=== PATIENT | male | born 1965 | race Hispanic/Latino ===

== ENCOUNTER 2022-07-15 13:48 | Inpatient (IN) | payer OTHER ==
--- NOTE | 2022-07-15 14:35 | XRay Report ---
CHEST 1 VIEW 07/15/2022 2:18 PM INDICATION / CLINICAL INFORMATION: Chest pain. COMPARISON: None available. FINDINGS: SUPPORT DEVICES: There is a dual chamber left subclavian transvenous pacemaker with the tips of the p acing leads overlying the right atrial appendage and right ventricle. There is a left PICC with the t ip not well seen but in the region of the proximal to mid SVC. HEART / MEDIASTINUM: The heart size and pulmonary vasculature are normal. There is a coronary artery stent in the LAD. The aorta is normal in caliber. LUNGS / PLEURA: No significant pulmonary or pleural abnormality. No pneumothorax. ADDITIONAL FINDINGS: No significant additional findings. IMPRESSION: No acute findings. Signer Name: Phill Agudelo MD Signed: 07/15/2022 2:30 PM Workstation Name: [email or web address]
[2022-07-15] MEDS ORDERED: ONDANSETRON 4 MG/2 ML INJ IV ONE ×2 (16:00→22:43)
[2022-07-15] MEDS ORDERED: HYDROmorphone 1 MG/1 ML INJ IV ONE ×2 (16:00→18:06)
[2022-07-15 16:30] LABS: Hemoglobin 9.4 gm/dl (11.8-15.2); Mean Corpuscular HGB Conc 33 % (32-34); Mean Corpuscular Volume 81 fl (84-94); Platelet Count 178 K/mm3 (140-440); Red Blood Count 3.58 M/mm3 (3.65-5.03)
[2022-07-15 16:38] LABS: INR 0.88 (0.87-1.13)
[2022-07-15 16:39] LABS: Partial Thromboplastin Time 24.1 Sec. (24.2-36.6)
[2022-07-15 16:43] LABS: Red Cell Distribution Width 23.5 % (13.2-15.2)
[2022-07-15] MEDS ORDERED: diphenhydrAMINE 50 MG/ML VIAL IV ONE ×2 (16:55→18:06)
[2022-07-15] MEDS ORDERED: methylPREDNISolone Sod Succinate 125 MG/2 ML INJ IV ONE (16:55)
[2022-07-15 16:57] LABS: Alanine Aminotransferase 14 units/L (7-56); Albumin 3.9 g/dL (3.9-5); BUN/Creatinine Ratio 12; Blood Urea Nitrogen 11 mg/dL (9-20); Calcium 9.1 mg/dL (8.4-10.2); Hemolysis Index 12
--- NOTE | 2022-07-15 17:36 | Emergency Department Report ---
ED Chest Pain HPI - General Chief Complaint: Chest Pain Stated Complaint: CHEST PAIN Time Seen by Provider: 07/15/22 15:29 Source: patient Mode of arrival: Ambulatory Limitations: No Limitations - History of Present Illness Initial Comments: 57-year-old male with a past medical history of hypertension, ascending aortic aneurysm, mechanical valve replacement, defibrillator, pacemaker, 3 cardiac stents, home oxygen and history of PE/DVT with IVC filter placement presents to the hospital complaining of chest pain and defibrillator discharge at 1:36pm. Symptoms started 3 hours prior to arrival with constant ripping chest pain radiating to his back with associated shortness of breath, nausea, 5 episodes of vomiting. Patient takes multiple medications including warfarin, Plavix, and Lovenox when his INR is subtherapeutic (patient performs [id number] INR testing at home). Patient has a left arm PICC line that was placed at the [facility] 3 weeks ago due to his difficult peripheral access. Patient moved to the [facility] from [place] 4 weeks ago and is in the process of obtaining primary care doctor and specialist doctor management in [place]. 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 Severity scale (0 -10): 9 - Related Data Allergies Allergy/AdvReac Type Severity Reaction Status Date / Time Iodinated Contrast Media Allergy Anaphylaxis Verified 07/15/22 14:02 Heart Score - HEART Score History: Slightly suspicious EKG: Non-specific Age: 45-65 Risk factors: > 3 risk factors or hx of atherosclerotic disease Troponin: < normal limit HEART Score: 4 - EKG Read Time Time EKG Completed: 14:05 EKG Read Time: 14:11 ED Review of Systems ROS: Stated complaint: CHEST PAIN Other details as noted in HPI Comment: All other systems reviewed and negative ED Past Medical Hx - Past Medical History Previous Medical History?: Yes Hx Hypertension: Yes Additional medical history: Ascending aorta aneurysm,mechanical valve replacement ,defibrilator,pacemaker,3 cardiac stents ,home oxygen ,dvt ,pe - Surgical History Additional Surgical History: IVC filter ED Physical Exam - General Limitations: No Limitations - Other Other exam information: General: No acute distress Head: Atraumatic Eyes: normal appearance ENT: Moist mucous membranes Neck: Normal appearance, no midline tenderness Chest: Clear to auscultation bilaterally, sternotomy scar noted to anterior CV: Regular rate and rhythm Abdomen: Soft, normal bowel sounds, nontender, nondistended, no rebound or guarding Back: Normal inspection Extremity: Normal inspection, full range of motion, no calf tenderness or leg edema, left arm PICC line Neuro: Alert O x 3, no facial asymmetry, speech clear, no gross motor sensory deficit Psych: Appropriate behavior Skin: No rash ED Course Vital Signs 07/15/22 07/15/22 07/15/22 13:57 15:37 15:45 Temperature 98.1 F Pulse Rate 110 H 97 H 91 H Respiratory 18 17 28 H Rate Blood Pressure 127/79 Blood Pressure 128/76 [Left] O2 Sat by Pulse 99 98 93 Oximetry 07/15/22 07/15/22 07/15/22 16:00 16:15 16:30 Temperature Pulse Rate 92 H 91 H 89 Respiratory 14 17 19 Rate Blood Pressure 127/79 108/75 108/75 Blood Pressure [Left] O2 Sat by Pulse 98 97 98 Oximetry 07/15/22 07/15/22 07/15/22 16:46 17:00 17:16 Temperature Pulse Rate 88 87 87 Respiratory 17 17 24 Rate Blood Pressure 108/75 114/53 114/53 Blood Pressure [Left] O2 Sat by Pulse 97 96 Oximetry 07/15/22 07/15/22 07/15/22 17:34 17:47 17:50 Temperature Pulse Rate 115 H 117 H Respiratory 17 13 Rate Blood Pressure 114/53 Blood Pressure [Left] O2 Sat by Pulse 97 98 97 Oximetry 07/15/22 07/15/22 07/15/22 18:00 18:16 18:30 Temperature Pulse Rate 90 88 Respiratory 22 13 Rate Blood Pressure 114/53 Blood Pressure [Left] O2 Sat by Pulse 97 95 96 Oximetry 07/15/22 07/15/22 07/15/22 18:46 19:00 19:16 Temperature Pulse Rate 85 87 89 Respiratory 15 13 15 Rate Blood Pressure 114/53 128/64 128/64 Blood Pressure [Left] O2 Sat by Pulse 97 94 95 Oximetry 07/15/22 07/15/22 07/15/22 19:30 19:46 20:02 Temperature Pulse Rate 86 88 116 H Respiratory 12 13 27 H Rate Blood Pressure 128/64 128/64 Blood Pressure [Left] O2 Sat by Pulse 97 95 97 Oximetry 07/15/22 07/15/22 07/15/22 20:16 20:30 20:46 Temperature Pulse Rate 93 H 106 H 100 H Respiratory 25 H 14 22 Rate Blood Pressure 128/64 Blood Pressure [Left] O2 Sat by Pulse 95 97 97 Oximetry 07/15/22 07/15/22 07/15/22 21:00 21:16 21:30 Temperature Pulse Rate 96 H 100 H 95 H Respiratory 17 18 19 Rate Blood Pressure 128/64 128/64 128/64 Blood Pressure [Left] O2 Sat by Pulse 96 96 97 Oximetry 07/15/22 07/15/22 07/15/22 21:46 22:08 22:16 Temperature Pulse Rate 96 H 113 H 94 H Respiratory 19 27 H 17 Rate Blood Pressure 128/64 Blood Pressure [Left] O2 Sat by Pulse 97 98 98 Oximetry 07/15/22 07/15/22 07/15/22 22:30 22:46 23:00 Temperature Pulse Rate 91 H 91 H 87 Respiratory 25 H 13 16 Rate Blood Pressure 123/59 123/59 Blood Pressure [Left] O2 Sat by Pulse 96 97 98 Oximetry 07/15/22 07/15/22 23:16 23:30 Temperature Pulse Rate 83 84 Respiratory 22 20 Rate Blood Pressure 123/59 123/59 Blood Pressure [Left] O2 Sat by Pulse 96 96 Oximetry ED Medical Decision Making - Lab Data Result diagrams: 07/15/22 15:49 07/15/22 15:49 Lab Results 07/15/22 07/15/22 07/15/22 Range/Units 15:49 15:49 15:49 WBC 8.5 (4.5-11.0) K/mm3 RBC 3.58 L (3.65-5.03) M/mm3 Hgb 9.4 L (11.8-15.2) gm/dl Hct 29.0 L (35.5-45.6) % MCV 81 L (84-94) fl MCH 26 L (28-32) pg MCHC 33 (32-34) % RDW 23.5 H (13.2-15.2) % Plt Count 178 (140-440) K/mm3 Add Manual Diff Complete Total Counted 100 Seg Neuts % (Manual) 90.0 H (40.0-70.0) % Band Neutrophils % 1.0 % Lymphocytes % (Manual) 3.0 L (13.4-35.0) % Reactive Lymphs % (Man) 0 % Monocytes % (Manual) 4.0 (0.0-7.3) % Eosinophils % (Manual) 0 (0.0-4.3) % Basophils % (Manual) 0 (0.0-1.8) % Metamyelocytes % 1.0 % Myelocytes % 1.0 % Promyelocytes % 0 % Blast Cells % 0 % Nucleated RBC % Not Reportable Seg Neutrophils # Man 7.7 (1.8-7.7) K/mm3 Band Neutrophils # 0.1 K/mm3 Lymphocytes # (Manual) 0.3 L (1.2-5.4) K/mm3 Abs React Lymphs (Man) 0.0 K/mm3 Monocytes # (Manual) 0.3 (0.0-0.8) K/mm3 Eosinophils # (Manual) 0.0 (0.0-0.4) K/mm3 Basophils # (Manual) 0.0 (0.0-0.1) K/mm3 Metamyelocytes # 0.1 K/mm3 Myelocytes # 0.1 K/mm3 Promyelocytes # 0.0 K/mm3 Blast Cells # 0.0 K/mm3 WBC Morphology Not Reportable Hypersegmented Neuts Not Reportable Hyposegmented Neuts Not Reportable Hypogranular Neuts Not Reportable Smudge Cells Not Reportable Toxic Granulation Not Reportable Toxic Vacuolation Not Reportable Dohle Bodies Not Reportable Pelger-Huet Anomaly Not Reportable Bubba Rods Not Reportable Platelet Estimate Consistent w auto Clumped Platelets Not Reportable Plt Clumps, EDTA Not Reportable Large Platelets Not Reportable Giant Platelets Not Reportable Platelet Satelliting Not Reportable Plt Morphology Comment Not Reportable RBC Morphology Not Reportable Dimorphic RBCs Not Reportable Polychromasia Few Hypochromasia Not Reportable Poikilocytosis Not Reportable Anisocytosis 2+ Microcytosis Not Reportable Macrocytosis Not Reportable Spherocytes Not Reportable Pappenheimer Bodies Not Reportable Sickle Cells Not Reportable Target Cells Not Reportable Tear Drop Cells 1+ Ovalocytes Few Helmet Cells Not Reportable Lice[place]out[place] Bodies Not Reportable Dorset Rings Not Reportable Ulysses Cells Not Reportable Bite Cells Not Reportable Crenated Cell Not Reportable Elliptocytes Not Reportable Acanthocytes (Spur) Not Reportable Rouleaux Not Reportable Hemoglobin C Crystals Not Reportable Schistocytes Not Reportable Malaria parasites Not Reportable Indra Bodies Not Reportable Hem Pathologist Commnt No PT 12.9 (12.2-14.9) Sec. INR 0.88 (0.87-1.13) APTT 24.1 L (24.2-36.6) Sec. Sodium 141 (137-145) mmol/L Potassium 4.1 (3.6-5.0) mmol/L Chloride 105.0 (98-107) mmol/L Carbon Dioxide 25 (22-30) mmol/L Anion Gap 15 mmol/L BUN 11 (9-20) mg/dL Creatinine 0.9 (0.8-1.3) mg/dL Estimated GFR > 60 ml/min BUN/Creatinine Ratio 12 % Glucose 159 H (75-100) mg/dL Calcium 9.1 (8.4-10.2) mg/dL Total Bilirubin 0.30 (0.1-1.2) mg/dL AST 9 (5-40) units/L ALT 14 (7-56) units/L Alkaline Phosphatase 83 (35-129) units/L Troponin T < 0.010 (0.00-0.029) ng/mL Total Protein 5.7 L (6.3-8.2) g/dL Albumin 3.9 (3.9-5) g/dL Albumin/Globulin Ratio 2.2 % 07/15/22 Range/Units 19:24 WBC (4.5-11.0) K/mm3 RBC (3.65-5.03) M/mm3 Hgb (11.8-15.2) gm/dl Hct (35.5-45.6) % MCV (84-94) fl MCH (28-32) pg MCHC (32-34) % RDW (13.2-15.2) % Plt Count (140-440) K/mm3 Add Manual Diff Total Counted Seg Neuts % (Manual) (40.0-70.0) % Band Neutrophils % % Lymphocytes % (Manual) (13.4-35.0) % Reactive Lymphs % (Man) % Monocytes % (Manual) (0.0-7.3) % Eosinophils % (Manual) (0.0-4.3) % Basophils % (Manual) (0.0-1.8) % Metamyelocytes % % Myelocytes % % Promyelocytes % % Blast Cells % % Nucleated RBC % Seg Neutrophils # Man (1.8-7.7) K/mm3 Band Neutrophils # K/mm3 Lymphocytes # (Manual) (1.2-5.4) K/mm3 Abs React Lymphs (Man) K/mm3 Monocytes # (Manual) (0.0-0.8) K/mm3 Eosinophils # (Manual) (0.0-0.4) K/mm3 Basophils # (Manual) (0.0-0.1) K/mm3 Metamyelocytes # K/mm3 Myelocytes # K/mm3 Promyelocytes # K/mm3 Blast Cells # K/mm3 WBC Morphology Hypersegmented Neuts Hyposegmented Neuts Hypogranular Neuts Smudge Cells Toxic Granulation Toxic Vacuolation Dohle Bodies Pelger-Huet Anomaly Bubba Rods Platelet Estimate Clumped Platelets Plt Clumps, EDTA Large Platelets Giant Platelets Platelet Satelliting Plt Morphology Comment RBC Morphology Dimorphic RBCs Polychromasia Hypochromasia Poikilocytosis Anisocytosis Microcytosis Macrocytosis Spherocytes Pappenheimer Bodies Sickle Cells Target Cells Tear Drop Cells Ovalocytes Helmet Cells Licea-Stoutland Bodies Dorset Rings Ulysses Cells Bite Cells Crenated Cell Elliptocytes Acanthocytes (Spur) Rouleaux Hemoglobin C Crystals Schistocytes Malaria parasites Indra Bodies Hem Pathologist Commnt PT (12.2-14.9) Sec. INR (0.87-1.13) APTT (24.2-36.6) Sec. Sodium (137-145) mmol/L Potassium (3.6-5.0) mmol/L Chloride (98-107) mmol/L Carbon Dioxide (22-30) mmol/L Anion Gap mmol/L BUN (9-20) mg/dL Creatinine (0.8-1.3) mg/dL Estimated GFR ml/min BUN/Creatinine Ratio % Glucose (75-100) mg/dL Calcium (8.4-10.2) mg/dL Total Bilirubin (0.1-1.2) mg/dL AST (5-40) units/L ALT (7-56) units/L Alkaline Phosphatase (35-129) units/L Troponin T < 0.010 (0.00-0.029) ng/mL Total Protein (6.3-8.2) g/dL Albumin (3.9-5) g/dL Albumin/Globulin Ratio % - EKG Data -: EKG Interpreted by Sc EKG shows normal: sinus rhythm, ST-T waves (No STEMI) Rate: tachycardia (109) - Radiology Data Radiology results: report reviewed CHEST 1 VIEW 07/15/2022 2:18 PM INDICATION / CLINICAL INFORMATION: Chest pain. COMPARISON: None available. FINDINGS: SUPPORT DEVICES: There is a dual chamber left subclavian transvenous pacemaker with the tips of the pacing leads overlying the right atrial appendage and right ventricle. There is a left PICC with the tip not well seen but in the region of the proximal to mid SVC. HEART / MEDIASTINUM: The heart size and pulmonary vasculature are normal. There is a coronary artery stent in the LAD. The aorta is normal in caliber. LUNGS / PLEURA: No significant pulmonary or pleural abnormality. No pneum othorax. ADDITIONAL FINDINGS: No significant additional findings. IMPRESSION: No acute findings. CTA CHEST WITH IV CONTRAST INDICATION: Chest pain with dyspnea. History of aneurysm. TECHNIQUE: Axial CT images were obtained through the chest after injection of 88 mL Omnipaque 350 IV contrast. 3 plane MIP reconstructions were produced. All CT scans at this location are performed using CT dose reduction for ALARA by means of automated exposure control. COMPARISON: None available. FINDINGS: PULMONARY ARTERIES: No pulmonary emboli. AORTA AND ARTERIES: No aneurysm of the aortic arch and descending thoracic aorta. There is significant motion along the ascending thoracic aorta limiting evaluation.. MEDIASTINUM: The heart is mildly enlarged. There is CABG change. No aneurysm of the aortic arch and descending thoracic aorta LUNGS: Evidence of trace bilateral interstitial edema. No pleural effusion. ADDITIONAL FINDINGS: None. UPPER ABDOMEN: No acute findings. BONES: No significant osseous abnormality. IMPRESSION: Mild cardiomegaly with mild interstitial edema. No evidence of aneurysm/dissection involving the aortic arch or descending thoracic aorta. See above comments. - Medical Decision Making 57-year-old male presents to the hospital complaining of chest pain with significant cardiac risk factors. EKG without ST elevation DE. Troponin negative x2. Patient has a CT angiogram unremarkable despite reported history of a sending aortic aneurysm measuring 5.1 cm. Patient has a subtherapeutic INR despite reported Coumadin use with [id number] INR testing at home. Patient is new to our system and new to [place] without any recent cardiac work-up available for review. Patient receiving Dilaudid intermittently for pain. Patient to be admitted to the hospital service for further evaluation. Case discussed with on-call eddy current inspector and consult ordered. Patient also reports defibrillation shock. Call placed to his defibrillator company with plan for interrogation tomorrow Critical Care Time: No Critical care attestation.: If time is entered above; I have spent that time in minutes in the direct care of this critically ill patient, excluding procedure time. ED Disposition Clinical Impression: Chest pain, Subtherapeutic international normalized ratio (INR), History of heart artery stent, History of pulmonary embolism, AICD discharge Disposition: ADMITTED INPATIENT Is pt being admited?: Yes Condition: Stable
[2022-07-15 17:46] LABS: Anisocytosis 2+; Band Neutrophils # (Manual) 0.1 K/mm3; Basophils % (Manual) 0 % (0.0-1.8); Eosinophils % (Manual) 0 % (0.0-4.3); Myelocytes # (Manual) 0.1 K/mm3; Ovalocytes Few; Tear Drop Cells 1+; Total Cells Counted 100
[2022-07-15 17:47] LABS: Platelet Estimate Consistent w Auto
[2022-07-15] MEDS ORDERED: FAMOTIDINE 20 MG/2 ML INJ IV ONE (18:06)
--- NOTE | 2022-07-15 18:17 | Cat Scan Report ---
CTA CHEST WITH IV CONTRAST INDICATION: Chest pain with dyspnea. History of aneurysm. TECHNIQUE: Axial CT images were obtained through the chest after injection of 88 mL Omnipaque 350 IV contrast. 3 plane MIP reconstructions were produced. All CT scans at this location are performed using CT dose r eduction for ALARA by means of automated exposure control. COMPARISON: None available. FINDINGS: PULMONARY ARTERIES: No pulmonary emboli. AORTA AND ARTERIES: No aneurysm of the aortic arch and descending thoracic aorta. There is significan t motion along the ascending thoracic aorta limiting evaluation.. MEDIASTINUM: The heart is mildly enlarged. There is CABG change. No aneurysm of the aortic arch and d escending thoracic aorta LUNGS: Evidence of trace bilateral interstitial edema. No pleural effusion. ADDITIONAL FINDINGS: None . UPPER ABDOMEN: No acute findings. BONES: No significant osseous abnormality. IMPRESSION: Mild cardiomegaly with mild interstitial edema. No evidence of aneurysm/dissection involving the aort ic arch or descending thoracic aorta. See above comments. Signer Name: Davon Francois MD Signed: 07/15/2022 6:12 PM Workstation Name: [id number]
[2022-07-15] MEDS ORDERED: ONDANSETRON 4 MG/2 ML INJ IV PRN (22:49)
[2022-07-15] MEDS ORDERED: ACETAMINOPHEN 325 MG TAB PO PRN ×2 (22:49)
[2022-07-15] MEDS ORDERED: MORPHINE 2 MG/1 ML INJ IV PRN (22:49)
[2022-07-15] MEDS ORDERED: MAGNESIUM HYDROXIDE (MOM) ORAL LIQD UDC PO PRN (22:49)
[2022-07-15] MEDS ORDERED: traMADol 50 MG TAB PO PRN (22:49)
[2022-07-15] MEDS ORDERED: NITROGLYCERIN 0.4 MG TAB SUBL SL PRN (22:49)
--- NOTE | 2022-07-15 22:58 | History and Physical Report ---
History of Present Illness Date of examination: 07/15/22 Date of admission: 07/15/2022 Chief complaint: Chest Pain History of present illness: 87-year-old male with known history of hypertension, ascending aortic aneurysm, mechanical valve replacement, defibrillator, coronary artery disease with cardiac stent placement in the past, DVTPE with IVC filter placement presenting to the emergency room today for chest pain. 30 sometime this afternoon. Symptoms are central started about 3 to 4 hours prior to reporting to the emergency room. Chest pain is said to be constant and radiating towards his back with associated nausea, vomiting and shortness of breath. Patient will not to [place] from [place] 1 month ago and is in the process of following up with a primary care physician. He had a PICC line placement at the OR. about 3 weeks ago because of poor IV access. Work-up in the emergency room today, labs reveals subtherapeutic INR of 0.88, hemoglobin of 9.4. Chest x-ray shows no acute findings. Chest CTA shows mild cardiomegaly with mild interstitial edema. No evidence of aneurysm/dissection involving the aortic arch or descending thoracic aorta. Patient is being admitted for chest pain evaluation. Past History Past Medical History: hypertension, other ( Ascending aorta aneurysm,mechanical valve replacement ,defibrilator,pacemaker,3 cardiac stents ,home oxygen ,dvt ,pe) Past Surgical History: Other (IVC Filter) Family history: no significant family history Medications and Allergies Allergies Allergy/AdvReac Type Severity Reaction Status Date / Time Iodinated Contrast Media Allergy Anaphylaxis Verified 07/15/22 14:02 Home Medications Medication Instructions Recorded Confirmed Last Taken Type Atorvastatin [Lipitor Tab] 80 mg PO DAILY 07/16/22 07/16/22 07/15/22 History Enoxaparin Sodium [Lovenox] 80 mg SUB-Q BID 07/16/22 07/16/22 07/15/22 History Sertraline [Zoloft] 100 mg PO QDAY 07/16/22 07/16/22 07/15/22 History Warfarin [Coumadin] 10 mg PO QDAY 07/16/22 07/16/22 07/14/22 History carvediloL [Coreg] 12.5 mg PO DAILY 07/16/22 07/16/22 07/15/22 History lamoTRIgine [LaMICtal] 100 mg PO BID 07/16/22 07/16/22 07/15/22 History levETIRAcetam [Keppra TAB] 1,000 mg PO BID 07/16/22 07/16/22 07/15/22 History traZODone [Desyrel] 100 mg PO QHS 07/16/22 07/16/22 07/14/22 History Review of Systems Constitutional: no fever, no chills Ears, nose, mouth and throat: no nasal congestion, no sore throat Cardiovascular: chest pain, no palpitations Respiratory: no cough, no shortness of breath Gastrointestinal: no abdominal pain, no nausea, no vomiting, no diarrhea Genitourinary Male: no dysuria, no hematuria, no flank pain Musculoskeletal: no neck pain, no low back pain Integumentary: no rash, no pruritis Neurological: no headaches, no confusion Psychiatric: no anxiety, no depression Endocrine: no polyphagia, no polydipsia, no polyuria Exam - Constitutional Vitals: Temp Pulse Resp BP Pulse Ox 98.1 F 86 12 128/64 97 07/15/22 13:57 07/15/22 19:30 07/15/22 19:30 07/15/22 19:30 07/15/22 19:30 General appearance: Present: no acute distress, well-nourished - EENT Eyes: Present: PERRL, EOM intact. Absent: scleral icterus ENT: hearing intact, clear oral mucosa, dentition normal - Neck Neck: Present: supple, normal ROM - Respiratory Respiratory effort: normal Respiratory: bilateral: CTA - Cardiovascular Rhythm: regular Heart Sounds: Present: S1 & S2, click. Absent: gallop, systolic murmur, diastolic murmur, rub - Extremities Extremities: no ischemia, pulses intact, pulses symmetrical, normal temperature, normal color, Full ROM Extremity abnormal: edema (Trace bilateral ankle edema) Peripheral Pulses: within normal limits - Abdominal General gastrointestinal: Present: soft, non-tender, non-distended, normal bowel sounds. Absent: mass - Integumentary Integumentary: Present: clear, warm, dry, normal turgor. Absent: rash - Musculoskeletal Musculoskeletal: strength equal bilaterally - Psychiatric Psychiatric: appropriate mood/affect, intact judgment & insight, memory intact, cooperative - Neurologic Neurologic: CNII-XII intact, no focal deficits, moves all extremities HEART Score - HEART Score History: Moderately suspicious EKG: Non-specific Age: 45-65 Risk factors: > 3 risk factors or hx of atherosclerotic disease Troponin: Troponin T < 0.010 ng/mL (0.00-0.029) 07/15/22 19:24 Troponin: < normal limit HEART Score: 5 Results - Labs CBC & Chem 7: 07/15/22 15:49 07/15/22 15:49 Labs: Abnormal lab results 07/15/22 07/15/22 07/15/22 Range/Units 15:49 15:49 15:49 RBC 3.58 L (3.65-5.03) M/mm3 Hgb 9.4 L (11.8-15.2) gm/dl Hct 29.0 L (35.5-45.6) % MCV 81 L (84-94) fl MCH 26 L (28-32) pg RDW 23.5 H (13.2-15.2) % Seg Neuts % (Manual) 90.0 H (40.0-70.0) % Lymphocytes % (Manual) 3.0 L (13.4-35.0) % Lymphocytes # (Manual) 0.3 L (1.2-5.4) K/mm3 APTT 24.1 L (24.2-36.6) Sec. Glucose 159 H (75-100) mg/dL Total Protein 5.7 L (6.3-8.2) g/dL Assessment and Plan Assessment: 1. Chest pain 2. Hypertension 3. History of coronary artery disease with stent placement 4. History of ascending aortic aneurysm 5. History of mechanical valve placement 6. History of DVTs and PE Plan: 1. Patient admitted and placed on telemetry. 2. We will check serial cardiac enzymes. 3. Patient placed on daily aspirin, sublingual nitroglycerin and IV morphine as needed for chest pain. 4. We will resume routine home medications once reconciled. 5. Consult placed to cardiology for further evaluation and recommendations. DVT prophylaxis: Patient currently on anticoagulation with Coumadin. CODE STATUS: Full code
[2022-07-15] MEDS: MORPHINE 4 MG/1 ML INJ IV PRN (23:06)
[2022-07-16] MEDS ORDERED: traZODone 100 MG TAB PO ONE (01:34)
[2022-07-16] MEDS: MORPHINE 2 MG/1 ML INJ IV PRN ×5 (03:21→21:54)
[2022-07-16] MEDS: ASPIRIN EC 325 MG TAB PO SCH (09:01)
[2022-07-16] MEDS: lamoTRIgine 100 MG TAB PO SCH ×2 (09:01→21:54)
[2022-07-16] MEDS: carvediloL 12.5 MG TAB PO SCH (09:01)
[2022-07-16] MEDS: levETIRAcetam 500 MG TAB PO SCH ×2 (09:01→21:54)
[2022-07-16] MEDS: SERTRALINE 100 MG TAB PO SCH (09:01)
[2022-07-16] MEDS: ENOXAPARIN 80 MG/0.8 ML INJ SUB-Q SCH ×2 (09:02→21:54)
--- NOTE | 2022-07-16 09:08 | Consultation ---
History of Present Illness Consult date: 07/16/22 Consult reason: chest pain History of present illness: 57-year-old gentleman with extensive past cardiac history presenting with acute onset chest pain. Patient has a history of coronary artery bypass grafting and aortic valve repair in 2012. 1 year ago he had to undergo mechanical aortic valve replacement after failure of his prior aortic valve repair. A year prior to his mechanical valve replacement, a cardiac cath was performed revealing occlusion of all bypass grafts palpation. He does have an indwelling internal cardioverter defibrillator that was inserted 2 weeks ago. He reports a left ventricular ejection fraction of 42%. 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 He is compliant with Coumadin but has been having problems maintaining his INR within therapeutic range. He has chronic anemia of unclear source. 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 He just transferred from [place] to [place] in order to be close to his family. Past History Past Medical History: anemia, CAD, DVT, heart failure, hypertension, pulmonary embolism, other ( Ascending aorta aneurysm,mechanical valve replacement ,defibrilator,pacemaker,3 cardiac stents ,home oxygen ,dvt ,pe) Past Surgical History: valve replacement, CABG, Other (IVC Filter, coronary artery bypass graft and mechanical aortic valve replacement) Family history: no significant family history Medications and Allergies Allergies Allergy/AdvReac Type Severity Reaction Status Date / Time Iodinated Contrast Media Allergy Anaphylaxis Verified 07/15/22 14:02 Home Medications Medication Instructions Recorded Confirmed Last Taken Type Atorvastatin [Lipitor Tab] 80 mg PO DAILY 07/16/22 07/16/22 07/15/22 History Enoxaparin Sodium [Lovenox] 80 mg SUB-Q BID 07/16/22 07/16/22 07/15/22 History Sertraline [Zoloft] 100 mg PO QDAY 07/16/22 07/16/22 07/15/22 History Warfarin [Coumadin] 10 mg PO QDAY 07/16/22 07/16/22 07/14/22 History carvediloL [Coreg] 12.5 mg PO DAILY 07/16/22 07/16/22 07/15/22 History lamoTRIgine [LaMICtal] 100 mg PO BID 07/16/22 07/16/22 07/15/22 History levETIRAcetam [Keppra TAB] 1,000 mg PO BID 07/16/22 07/16/22 07/15/22 History traZODone [Desyrel] 100 mg PO QHS 07/16/22 07/16/22 07/14/22 History Active Meds: Active Medications Acetaminophen (Acetaminophen 325 Mg Tab) 650 mg PO Q4H PRN PRN Reason: Pain MILD(1-3)/Fever >100.5/GRIER Aspirin (Aspirin Ec 325 Mg Tab) 325 mg PO QDAY [facility] Last Admin: 07/16/22 09:01 Dose: 325 mg Atorvastatin Calcium (Atorvastatin 40 Mg Tab) 80 mg PO DAILY [facility] Last Admin: 07/16/22 09:01 Dose: 80 mg Carvedilol (Carvedilol 12.5 Mg Tab) 12.5 mg PO DAILY@0800 [facility] Last Admin: 07/16/22 09:01 Dose: 12.5 mg Enoxaparin Sodium (Enoxaparin 80 Mg/0.8 Ml Inj) 80 mg SUB-Q BID [facility]; Protocol Last Admin: 07/16/22 09:02 Dose: 80 mg Lamotrigine (Lamotrigine 100 Mg Tab) 100 mg PO BID [facility] Last Admin: 07/16/22 09:01 Dose: 100 mg Levetiracetam (Levetiracetam 500 Mg Tab) 1,000 mg PO BID [facility] Last Admin: 07/16/22 09:01 Dose: 1,000 mg Magnesium Hydroxide (Magnesium Hydroxide (Mom) Oral Liqd Udc) 30 ml PO Q4H PRN PRN Reason: Constipation Morphine Sulfate (Morphine 2 Mg/1 Ml Inj) 2 mg IV Q4H PRN PRN Reason: Pain, Moderate (4-6) Last Admin: 07/16/22 08:58 Dose: 2 mg Morphine Sulfate (Morphine 4 Mg/1 Ml Inj) 4 mg IV Q4H PRN PRN Reason: Pain , Severe (7-10) Last Admin: 07/15/22 23:06 Dose: 4 mg Morphine Sulfate (Morphine 2 Mg/1 Ml Inj) 2 mg IV Q5MIN PRN PRN Reason: Chest Pain unrelieved by NTG Nitroglycerin (Nitroglycerin 0.4 Mg Tab Subl) 0.4 mg SL Q5M PRN PRN Reason: Chest Pain Ondansetron HCl (Ondansetron 4 Mg/2 Ml Inj) 4 mg IV Q8H PRN PRN Reason: Nausea And Vomiting Sertraline HCl (Sertraline 100 Mg Tab) 100 mg PO QDAY [facility] Last Admin: 07/16/22 09:01 Dose: 100 mg Sodium Chloride (Sodium Chloride 0.9% 10 Ml Flush Syringe) 10 ml IV BID [facility] Last Admin: 07/16/22 09:01 Dose: 10 ml Sodium Chloride (Sodium Chloride 0.9% 10 Ml Flush Syringe) 10 ml IV PRN PRN PRN Reason: LINE FLUSH Tramadol HCl (Tramadol 50 Mg Tab) 50 mg PO Q6H PRN PRN Reason: Pain, Moderate (4-6) Trazodone HCl (Trazodone 100 Mg Tab) 100 mg PO QHS [facility] Warfarin Sodium (Warfarin 10 Mg Tab) 10 mg PO QDAY@1700 [facility]; Protocol Review of Systems All systems: negative Physical Examination Vital Signs Temp Pulse Resp BP Pulse Ox 98.1 F 110 H 18 128/76 99 07/15/22 13:57 07/15/22 13:57 07/15/22 13:57 07/15/22 13:57 07/15/22 13:57 General appearance: no acute distress Neck: Positive: neck supple Cardiac: Positive: Reg Rate and Rhythm, Other (Audible click) Lungs: Positive: Normal Exam Neuro: Positive: Grossly Intact Abdomen: Positive: Soft Extremities: Absent: edema Results 07/15/22 15:49 07/15/22 15:49 Cardiac Enzymes 07/15/22 Range/Units 15:49 AST 9 (5-40) units/L Coagulation 07/15/22 Range/Units 15:49 PT 12.9 (12.2-14.9) Sec. INR 0.88 (0.87-1.13) APTT 24.1 L (24.2-36.6) Sec. CBC 07/15/22 Range/Units 15:49 WBC 8.5 (4.5-11.0) K/mm3 RBC 3.58 L (3.65-5.03) M/mm3 Hgb 9.4 L (11.8-15.2) gm/dl Hct 29.0 L (35.5-45.6) % Plt Count 178 (140-440) K/mm3 Comprehensive Metabolic Panel 07/15/22 Range/Units 15:49 Sodium 141 (137-145) mmol/L Potassium 4.1 (3.6-5.0) mmol/L Chloride 105.0 (98-107) mmol/L Carbon Dioxide 25 (22-30) mmol/L BUN 11 (9-20) mg/dL Creatinine 0.9 (0.8-1.3) mg/dL Glucose 159 H (75-100) mg/dL Calcium 9.1 (8.4-10.2) mg/dL AST 9 (5-40) units/L ALT 14 (7-56) units/L Alkaline Phosphatase 83 (35-129) units/L Total Protein 5.7 L (6.3-8.2) g/dL Albumin 3.9 (3.9-5) g/dL - EKG Interpretation EKG: sinus rhythm EKG interpretations - Telemetry EKG Rhythm: Sinus Rhythm Assessment and Plan Chest pain, reason for admission Negative troponin x2 No ischemic EKG changes Chest x-ray showing cardiomegaly with mild interstitial pulmonary edema Coronary artery disease status post coronary artery bypass grafting in 2013 Cath reportedly performed 1 year ago in [place] revealing occlusion of the bypass graft. No reports are available for review. Mechanical aortic valve replacement History of aortic valve repair in 2013 History of mechanical aortic valve replacement 1 year ago Subtherapeutic INR, currently on Lovenox and warfarin. Chronic anemia of unclear source. Dual-chamber pacemaker, inserted 2 weeks ago in [place] ([employer]ron[employer] per patient) Patient reports having an ICD with a ICD discharge yesterday. Chest x-ray reviewed, did not appreciate a shocking coil on x-ray. Device size also is not consistent with defibrillator. Thomas removed from the incision site today. Device interrogation is pending. History of PE and DVT status post IVC filter 10 years ago. Reported history of aortic aneurysm CT chest and abdomen done this admission reveals no evidence of aortic aneurysms Recommendations: Continue Lovenox 80 mg twice daily Hold warfarin in case invasive cardiac evaluation is needed. Obtain records from [place] (daughter to bring records with her to the hospital) Reviewed device interrogation once performed. Obtain blood cultures (device site is erythematous with clear drainage, surgical pablo were removed this morning)
--- NOTE | 2022-07-16 10:14 | Progress Note ---
Assessment and Plan Assessment and plan: 87-year-old male with known history of hypertension, ascending aortic aneurysm, mechanical valve replacement, defibrillator, coronary artery disease with cardiac stent placement in the past, DVTPE with IVC filter placement presenting to the emergency room today for chest pain. Chest x-ray showed no acute findings. Chest CTA showed mild cardiomegaly with mild interstitial edema. No evidence of aneurysm/dissection involving the aortic arch or descending thoracic aorta. The patient was admitted with diagnoses below: Chest pain Hypertension Dual-chamber pacemaker, inserted 2 weeks ago in [place] ([employer]ron[employer] per patient) Coronary artery disease status post coronary artery bypass grafting in 2012. Cath reportedly performed 1 year ago in [place] revealing occlusion of the bypass graft. History of ascending aortic aneurysm. CT chest and abdomen done this admission reveals no evidence of aortic aneurysms Mechanical aortic valve replacement History of DVT/PE s/p IVC filter 10 years ago Chronic anemia 07/16/2022. Cardiology following. Continue Lovenox 80 mg twice daily. Hold warfarin in case of invasive cardiac evaluation per cardiology. Obtain all records from [place]. Device interrogation is pending. Obtain blood cultures (device site is erythematous with clear drainage, surgical pablo were removed this morning). Negative troponin x2. No ischemic EKG changes History Interval history: No new issues overnight Hospitalist Physical - Constitutional Vitals: Temp Pulse Resp BP Pulse Ox 97.7 F 86 18 187/112 97 07/16/22 00:07 07/16/22 04:55 07/16/22 08:58 07/16/22 00:07 07/16/22 04:37 General appearance: Present: no acute distress - EENT Eyes: Present: PERRL, EOM intact ENT: hearing intact, clear oral mucosa, dentition normal - Neck Neck: Present: supple, normal ROM - Respiratory Respiratory effort: normal Respiratory: bilateral: CTA - Cardiovascular Rhythm: regular Heart Sounds: Present: S1 & S2. Absent: gallop, rub - Extremities Extremities: no ischemia, No edema, Full ROM - Abdominal General gastrointestinal: soft, non-tender, non-distended, normal bowel sounds - Integumentary Integumentary: Present: clear, warm, dry - Neurologic Neurologic: CNII-XII intact, moves all extremities HEART Score - HEART Score EKG: Non-specific Age: 45-65 Risk factors: > 3 risk factors or hx of atherosclerotic disease Troponin: Troponin T < 0.010 ng/mL (0.00-0.029) 07/15/22 19:24 Troponin: < normal limit Results - Labs CBC & Chem 7: 07/15/22 15:49 07/15/22 15:49 Labs: Laboratory Last Values WBC 8.5 K/mm3 (4.5-11.0) 07/15/22 15:49 RBC 3.58 M/mm3 (3.65-5.03) L 07/15/22 15:49 Hgb 9.4 gm/dl (11.8-15.2) L 07/15/22 15:49 Hct 29.0 % (35.5-45.6) L 07/15/22 15:49 MCV 81 fl (84-94) L 07/15/22 15:49 MCH 26 pg (28-32) L 07/15/22 15:49 MCHC 33 % (32-34) 07/15/22 15:49 RDW 23.5 % (13.2-15.2) H 07/15/22 15:49 Plt Count 178 K/mm3 (140-440) 07/15/22 15:49 Add Manual Diff Complete 07/15/22 15:49 Total Counted 100 07/15/22 15:49 Seg Neuts % (Manual) 90.0 % (40.0-70.0) H 07/15/22 15:49 Band Neutrophils % 1.0 % 07/15/22 15:49 Lymphocytes % (Manual) 3.0 % (13.4-35.0) L 07/15/22 15:49 Reactive Lymphs % (Man) 0 % 07/15/22 15:49 Monocytes % (Manual) 4.0 % (0.0-7.3) 07/15/22 15:49 Eosinophils % (Manual) 0 % (0.0-4.3) 07/15/22 15:49 Basophils % (Manual) 0 % (0.0-1.8) 07/15/22 15:49 Metamyelocytes % 1.0 % 07/15/22 15:49 Myelocytes % 1.0 % 07/15/22 15:49 Promyelocytes % 0 % 07/15/22 15:49 Blast Cells % 0 % 07/15/22 15:49 Nucleated RBC % Not Reportable 07/15/22 15:49 Seg Neutrophils # Man 7.7 K/mm3 (1.8-7.7) 07/15/22 15:49 Band Neutrophils # 0.1 K/mm3 07/15/22 15:49 Lymphocytes # (Manual) 0.3 K/mm3 (1.2-5.4) L 07/15/22 15:49 Abs React Lymphs (Man) 0.0 K/mm3 07/15/22 15:49 Monocytes # (Manual) 0.3 K/mm3 (0.0-0.8) 07/15/22 15:49 Eosinophils # (Manual) 0.0 K/mm3 (0.0-0.4) 07/15/22 15:49 Basophils # (Manual) 0.0 K/mm3 (0.0-0.1) 07/15/22 15:49 Metamyelocytes # 0.1 K/mm3 07/15/22 15:49 Myelocytes # 0.1 K/mm3 07/15/22 15:49 Promyelocytes # 0.0 K/mm3 07/15/22 15:49 Blast Cells # 0.0 K/mm3 07/15/22 15:49 WBC Morphology Not Reportable 07/15/22 15:49 Hypersegmented Neuts Not Reportable 07/15/22 15:49 Hyposegmented Neuts Not Reportable 07/15/22 15:49 Hypogranular Neuts Not Reportable 07/15/22 15:49 Smudge Cells Not Reportable 07/15/22 15:49 Toxic Granulation Not Reportable 07/15/22 15:49 Toxic Vacuolation Not Reportable 07/15/22 15:49 Dohle Bodies Not Reportable 07/15/22 15:49 Pelger-Huet Anomaly Not Reportable 07/15/22 15:49 Bubba Rods Not Reportable 07/15/22 15:49 Platelet Estimate Consistent w auto 07/15/22 15:49 Clumped Platelets Not Reportable 07/15/22 15:49 Plt Clumps, EDTA Not Reportable 07/15/22 15:49 Large Platelets Not Reportable 07/15/22 15:49 Giant Platelets Not Reportable 07/15/22 15:49 Platelet Satelliting Not Reportable 07/15/22 15:49 Plt Morphology Comment Not Reportable 07/15/22 15:49 RBC Morphology Not Reportable 07/15/22 15:49 Dimorphic RBCs Not Reportable 07/15/22 15:49 Polychromasia Few 07/15/22 15:49 Hypochromasia Not Reportable 07/15/22 15:49 Poikilocytosis Not Reportable 07/15/22 15:49 Anisocytosis 2+ 07/15/22 15:49 Microcytosis Not Reportable 07/15/22 15:49 Macrocytosis Not Reportable 07/15/22 15:49 Spherocytes Not Reportable 07/15/22 15:49 Pappenheimer Bodies Not Reportable 07/15/22 15:49 Sickle Cells Not Reportable 07/15/22 15:49 Target Cells Not Reportable 07/15/22 15:49 Tear Drop Cells 1+ 07/15/22 15:49 Ovalocytes Few 07/15/22 15:49 Helmet Cells Not Reportable 07/15/22 15:49 Licea-Ludden Bodies Not Reportable 07/15/22 15:49 Fords Rings Not Reportable 07/15/22 15:49 Ulysses Cells Not Reportable 07/15/22 15:49 Bite Cells Not Reportable 07/15/22 15:49 Crenated Cell Not Reportable 07/15/22 15:49 Elliptocytes Not Reportable 07/15/22 15:49 Acanthocytes (Spur) Not Reportable 07/15/22 15:49 Rouleaux Not Reportable 07/15/22 15:49 Hemoglobin C Crystals Not Reportable 07/15/22 15:49 Schistocytes Not Reportable 07/15/22 15:49 Malaria parasites Not Reportable 07/15/22 15:49 Indra Bodies Not Reportable 07/15/22 15:49 Hem Pathologist Commnt No 07/15/22 15:49 PT 12.9 Sec. (12.2-14.9) 07/15/22 15:49 INR 0.88 (0.87-1.13) 07/15/22 15:49 APTT 24.1 Sec. (24.2-36.6) L 07/15/22 15:49 Sodium 141 mmol/L (137-145) 07/15/22 15:49 Potassium 4.1 mmol/L (3.6-5.0) 07/15/22 15:49 Chloride 105.0 mmol/L (98-107) 07/15/22 15:49 Carbon Dioxide 25 mmol/L (22-30) 07/15/22 15:49 Anion Gap 15 mmol/L 07/15/22 15:49 BUN 11 mg/dL (9-20) 07/15/22 15:49 Creatinine 0.9 mg/dL (0.8-1.3) 07/15/22 15:49 Estimated GFR > 60 ml/min 07/15/22 15:49 BUN/Creatinine Ratio 12 % 07/15/22 15:49 Glucose 159 mg/dL (75-100) H 07/15/22 15:49 Calcium 9.1 mg/dL (8.4-10.2) 07/15/22 15:49 Total Bilirubin 0.30 mg/dL (0.1-1.2) 07/15/22 15:49 AST 9 units/L (5-40) 07/15/22 15:49 ALT 14 units/L (7-56) 07/15/22 15:49 Alkaline Phosphatase 83 units/L (35-129) 07/15/22 15:49 Troponin T < 0.010 ng/mL (0.00-0.029) 07/15/22 19:24 Total Protein 5.7 g/dL (6.3-8.2) L 07/15/22 15:49 Albumin 3.9 g/dL (3.9-5) 07/15/22 15:49 Albumin/Globulin Ratio 2.2 % 07/15/22 15:49 Steward/IV: Voiding Method Toilet Active Medications - Current Medications Current Medications: Generic Name Dose Route Start Last Admin Trade Name Freq PRN Reason Stop Dose Admin Acetaminophen 650 mg 07/15/22 22:49 Acetaminophen 325 Mg Tab PO Q4H PRN Pain MILD(1-3)/Fever >100.5/GRIER Aspirin 325 mg 07/16/22 10:00 07/16/22 09:01 Aspirin Ec 325 Mg Tab PO 325 mg QDAY [facility] Administration Atorvastatin Calcium 80 mg 07/16/22 10:00 07/16/22 09:01 Atorvastatin 40 Mg Tab PO 80 mg DAILY [facility] Administration Carvedilol 12.5 mg 07/16/22 08:00 07/16/22 09:01 Carvedilol 12.5 Mg Tab PO 12.5 mg DAILY@0800 [facility] Administration Enoxaparin Sodium 80 mg 07/16/22 10:00 07/16/22 09:02 Enoxaparin 80 Mg/0.8 Ml Inj SUB-Q 80 mg BID [facility] Administration Protocol Lamotrigine 100 mg 07/16/22 10:00 07/16/22 09:01 Lamotrigine 100 Mg Tab PO 100 mg BID [facility] Administration Levetiracetam 1,000 mg 07/16/22 10:00 07/16/22 09:01 Levetiracetam 500 Mg Tab PO 1,000 mg BID [facility] Administration Magnesium Hydroxide 30 ml 07/15/22 22:49 Magnesium Hydroxide (Mom) Oral Liqd Udc PO Q4H PRN Constipation Morphine Sulfate 2 mg 07/15/22 22:49 07/16/22 08:58 Morphine 2 Mg/1 Ml Inj IV 2 mg Q4H PRN Administration Pain, Moderate (4-6) Morphine Sulfate 4 mg 07/15/22 22:49 07/15/22 23:06 Morphine 4 Mg/1 Ml Inj IV 4 mg Q4H PRN Administration Pain , Severe (7-10) Morphine Sulfate 2 mg 07/15/22 22:49 Morphine 2 Mg/1 Ml Inj IV Q5MIN PRN Chest Pain unrelieved by NTG Nitroglycerin 0.4 mg 07/15/22 22:49 Nitroglycerin 0.4 Mg Tab Subl SL Q5M PRN Chest Pain Ondansetron HCl 4 mg 07/15/22 22:49 Ondansetron 4 Mg/2 Ml Inj IV Q8H PRN Nausea And Vomiting Sertraline HCl 100 mg 07/16/22 10:00 07/16/22 09:01 Sertraline 100 Mg Tab PO 100 mg QDAY [facility] Administration Sodium Chloride 10 ml 07/16/22 10:00 07/16/22 09:01 Sodium Chloride 0.9% 10 Ml Flush Syringe IV 10 ml BID [facility] Administration Sodium Chloride 10 ml 07/15/22 22:49 Sodium Chloride 0.9% 10 Ml Flush Syringe IV PRN PRN LINE FLUSH Tramadol HCl 50 mg 07/15/22 22:49 Tramadol 50 Mg Tab PO Q6H PRN Pain, Moderate (4-6) Trazodone HCl 100 mg 07/16/22 22:00 Trazodone 100 Mg Tab PO QHS [facility]
[2022-07-16 10:51] LABS: Basophils % (Auto) 0.1 % (0.0-1.8); Hematocrit 24.5 % (35.5-45.6); Hemoglobin 8.2 gm/dl (11.8-15.2); Lymphocytes # (Auto) 0.3 K/mm3 (1.2-5.4); Lymphocytes % (Auto) 6.5 % (13.4-35.0); Mean Corpuscular HGB Conc 34 % (32-34); Mean Corpuscular Volume 81 fl (84-94); Monocytes # (Auto) 0.5 K/mm3 (0.0-0.8); Monocytes % (Auto) 8.8 % (0.0-7.3); Platelet Count 146 K/mm3 (140-440); Red Blood Count 3.04 M/mm3 (3.65-5.03)
[2022-07-16 11:09] LABS: BUN/Creatinine Ratio 14; Blood Urea Nitrogen 14 mg/dL (9-20); Calcium 8.7 mg/dL (8.4-10.2); Hemolysis Index 4
[2022-07-16 11:34] LABS: Red Cell Distribution Width 22.7 % (13.2-15.2)
[2022-07-16] MEDS ORDERED: LORazepam 0.5 MG TAB PO PRN (12:00)
[2022-07-16] MEDS ORDERED: WARFARIN 10 MG TAB PO SCH (17:00)
[2022-07-16] MEDS: traZODone 100 MG TAB PO SCH (22:00)
[2022-07-17] MEDS: MORPHINE 2 MG/1 ML INJ IV PRN ×2 (01:48→06:08)
[2022-07-17 06:50] LABS: Basophils % (Auto) 0.2 % (0.0-1.8); Eosinophils % (Auto) 0.3 % (0.0-4.3); Hematocrit 26.3 % (35.5-45.6); Hemoglobin 8.4 gm/dl (11.8-15.2); Lymphocytes # (Auto) 0.5 K/mm3 (1.2-5.4); Lymphocytes % (Auto) 11.6 % (13.4-35.0); Mean Corpuscular HGB Conc 32 % (32-34); Mean Corpuscular Volume 83 fl (84-94); Monocytes # (Auto) 0.4 K/mm3 (0.0-0.8); Monocytes % (Auto) 9.2 % (0.0-7.3); Platelet Count 143 K/mm3 (140-440); Red Blood Count 3.16 M/mm3 (3.65-5.03)
[2022-07-17 06:57] LABS: Red Cell Distribution Width 23.1 % (13.2-15.2)
[2022-07-17 06:59] LABS: INR 0.91 (0.87-1.13)
[2022-07-17 07:39] LABS: BUN/Creatinine Ratio 10; Blood Urea Nitrogen 10 mg/dL (9-20); Calcium 7.9 mg/dL (8.4-10.2); Hemolysis Index 0
--- NOTE | 2022-07-17 08:35 | Progress Note ---
Assessment and Plan Assessment and plan: 87-year-old male with known history of hypertension, ascending aortic aneurysm, mechanical valve replacement, defibrillator, coronary artery disease with cardiac stent placement in the past, DVTPE with IVC filter placement presenting to the emergency room today for chest pain. Chest x-ray showed no acute findings. Chest CTA showed mild cardiomegaly with mild interstitial edema. No evidence of aneurysm/dissection involving the aortic arch or descending thoracic aorta. The patient was admitted with diagnoses below: Chest pain Hypertension Dual-chamber pacemaker, inserted 2 weeks ago in [place] (Biotronik per patient) Coronary artery disease status post coronary artery bypass grafting in 2012. Cath reportedly performed 1 year ago in [place] revealing occlusion of the bypass graft. History of ascending aortic aneurysm. 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 Cardiology following. Continue Lovenox 80 mg twice daily. Hold warfarin in case of invasive cardiac evaluation per cardiology. Obtain all records from [place]. Device interrogation is pending. Obtain blood cultures (device site is erythematous with clear drainage, surgical pablo were removed this morning). Negative troponin x2. No ischemic EKG changes 07/17/2022. Continue Lovenox 80 mg twice daily. Obtain all records from [place]. Device interrogation is pending. Obtain blood cultures (device site is erythematous with clear drainage, surgical pablo were removed yesterday morning). We will start empiric antibiotics of vancomycin for chest wall cellulitis. Consider ID consultation. Negative troponin x2. No ischemic EKG changes History Interval history: No new issues overnight Hospitalist Physical - Constitutional Vitals: Temp Pulse Resp BP Pulse Ox 97.6 F 84 18 139/58 98 07/17/22 03:14 07/17/22 03:14 07/17/22 03:14 07/17/22 03:14 07/17/22 04:00 General appearance: Present: no acute distress - EENT Eyes: Present: PERRL, EOM intact ENT: hearing intact, clear oral mucosa, dentition normal - Neck Neck: Present: supple, normal ROM - Respiratory Respiratory effort: normal Respiratory: bilateral: CTA - Cardiovascular Rhythm: regular Heart Sounds: Present: S1 & S2. Absent: gallop, rub - Extremities Extremities: no ischemia, No edema, Full ROM - Abdominal General gastrointestinal: soft, non-tender, non-distended, normal bowel sounds - Integumentary Integumentary: Present: clear, warm, dry - Neurologic Neurologic: CNII-XII intact, moves all extremities HEART Score - HEART Score EKG: Non-specific Age: 45-65 Risk factors: > 3 risk factors or hx of atherosclerotic disease Troponin: Troponin T < 0.010 ng/mL (0.00-0.029) 07/16/22 10:09 Troponin: < normal limit Results - Labs CBC & Chem 7: 07/17/22 06:02 07/17/22 06:02 Labs: Laboratory Last Values WBC 4.3 K/mm3 (4.5-11.0) L 07/17/22 06:02 RBC 3.16 M/mm3 (3.65-5.03) L 07/17/22 06:02 Hgb 8.4 gm/dl (11.8-15.2) L 07/17/22 06:02 Hct 26.3 % (35.5-45.6) L 07/17/22 06:02 MCV 83 fl (84-94) L 07/17/22 06:02 MCH 27 pg (28-32) L 07/17/22 06:02 MCHC 32 % (32-34) 07/17/22 06:02 RDW 23.1 % (13.2-15.2) H 07/17/22 06:02 Plt Count 143 K/mm3 (140-440) 07/17/22 06:02 Lymph % (Auto) 11.6 % (13.4-35.0) L 07/17/22 06:02 [place] % (Auto) 9.2 % (0.0-7.3) H 07/17/22 06:02 Eos % (Auto) 0.3 % (0.0-4.3) 07/17/22 06:02 Baso % (Auto) 0.2 % (0.0-1.8) 07/17/22 06:02 Lymph # (Auto) 0.5 K/mm3 (1.2-5.4) L 07/17/22 06:02 [place] # (Auto) 0.4 K/mm3 (0.0-0.8) 07/17/22 06:02 Eos # (Auto) 0.0 K/mm3 (0.0-0.4) 07/17/22 06:02 Baso # (Auto) 0.0 K/mm3 (0.0-0.1) 07/17/22 06:02 Add Manual Diff Complete 07/15/22 15:49 Total Counted 100 07/15/22 15:49 Seg Neutrophils % 78.7 % (40.0-70.0) H 07/17/22 06:02 Seg Neuts % (Manual) 90.0 % (40.0-70.0) H 07/15/22 15:49 Band Neutrophils % 1.0 % 07/15/22 15:49 Lymphocytes % (Manual) 3.0 % (13.4-35.0) L 07/15/22 15:49 Reactive Lymphs % (Man) 0 % 07/15/22 15:49 Monocytes % (Manual) 4.0 % (0.0-7.3) 07/15/22 15:49 Eosinophils % (Manual) 0 % (0.0-4.3) 07/15/22 15:49 Basophils % (Manual) 0 % (0.0-1.8) 07/15/22 15:49 Metamyelocytes % 1.0 % 07/15/22 15:49 Myelocytes % 1.0 % 07/15/22 15:49 Promyelocytes % 0 % 07/15/22 15:49 Blast Cells % 0 % 07/15/22 15:49 Nucleated RBC % Not Reportable 07/15/22 15:49 Seg Neutrophils # 3.4 K/mm3 (1.8-7.7) 07/17/22 06:02 Seg Neutrophils # Man 7.7 K/mm3 (1.8-7.7) 07/15/22 15:49 Band Neutrophils # 0.1 K/mm3 07/15/22 15:49 Lymphocytes # (Manual) 0.3 K/mm3 (1.2-5.4) L 07/15/22 15:49 Abs React Lymphs (Man) 0.0 K/mm3 07/15/22 15:49 Monocytes # (Manual) 0.3 K/mm3 (0.0-0.8) 07/15/22 15:49 Eosinophils # (Manual) 0.0 K/mm3 (0.0-0.4) 07/15/22 15:49 Basophils # (Manual) 0.0 K/mm3 (0.0-0.1) 07/15/22 15:49 Metamyelocytes # 0.1 K/mm3 07/15/22 15:49 Myelocytes # 0.1 K/mm3 07/15/22 15:49 Promyelocytes # 0.0 K/mm3 07/15/22 15:49 Blast Cells # 0.0 K/mm3 07/15/22 15:49 WBC Morphology Not Reportable 07/15/22 15:49 Hypersegmented Neuts Not Reportable 07/15/22 15:49 Hyposegmented Neuts Not Reportable 07/15/22 15:49 Hypogranular Neuts Not Reportable 07/15/22 15:49 Smudge Cells Not Reportable 07/15/22 15:49 Toxic Granulation Not Reportable 07/15/22 15:49 Toxic Vacuolation Not Reportable 07/15/22 15:49 Dohle Bodies Not Reportable 07/15/22 15:49 Pelger-Huet Anomaly Not Reportable 07/15/22 15:49 Bubba Rods Not Reportable 07/15/22 15:49 Platelet Estimate Consistent w auto 07/15/22 15:49 Clumped Platelets Not Reportable 07/15/22 15:49 Plt Clumps, EDTA Not Reportable 07/15/22 15:49 Large Platelets Not Reportable 07/15/22 15:49 Giant Platelets Not Reportable 07/15/22 15:49 Platelet Satelliting Not Reportable 07/15/22 15:49 Plt Morphology Comment Not Reportable 07/15/22 15:49 RBC Morphology Not Reportable 07/15/22 15:49 Dimorphic RBCs Not Reportable 07/15/22 15:49 Polychromasia Few 07/15/22 15:49 Hypochromasia Not Reportable 07/15/22 15:49 Poikilocytosis Not Reportable 07/15/22 15:49 Anisocytosis 2+ 07/15/22 15:49 Microcytosis Not Reportable 07/15/22 15:49 Macrocytosis Not Reportable 07/15/22 15:49 Spherocytes Not Reportable 07/15/22 15:49 Pappenheimer Bodies Not Reportable 07/15/22 15:49 Sickle Cells Not Reportable 07/15/22 15:49 Target Cells Not Reportable 07/15/22 15:49 Tear Drop Cells 1+ 07/15/22 15:49 Ovalocytes Few 07/15/22 15:49 Helmet Cells Not Reportable 07/15/22 15:49 [place] Bodies Not Reportable 07/15/22 15:49 [place] Rings Not Reportable 07/15/22 15:49 [place] Cells Not Reportable 07/15/22 15:49 Bite Cells Not Reportable 07/15/22 15:49 Crenated Cell Not Reportable 07/15/22 15:49 Elliptocytes Not Reportable 07/15/22 15:49 Acanthocytes (Spur) Not Reportable 07/15/22 15:49 Rouleaux Not Reportable 07/15/22 15:49 Hemoglobin C Crystals Not Reportable 07/15/22 15:49 Schistocytes Not Reportable 07/15/22 15:49 Malaria parasites Not Reportable 07/15/22 15:49 Indra Bodies Not Reportable 07/15/22 15:49 Hem Pathologist Commnt No 07/15/22 15:49 PT 13.2 Sec. (12.2-14.9) 07/17/22 06:02 INR 0.91 (0.87-1.13) 07/17/22 06:02 APTT 24.1 Sec. (24.2-36.6) L 07/15/22 15:49 Sodium 141 mmol/L (137-145) 07/17/22 06:02 Potassium 3.0 mmol/L (3.6-5.0) L D 07/17/22 06:02 Chloride 104.4 mmol/L (98-107) 07/17/22 06:02 Carbon Dioxide 27 mmol/L (22-30) 07/17/22 06:02 Anion Gap 13 mmol/L 07/17/22 06:02 BUN 10 mg/dL (9-20) 07/17/22 06:02 Creatinine 1.0 mg/dL (0.8-1.3) 07/17/22 06:02 Estimated GFR > 60 ml/min 07/17/22 06:02 BUN/Creatinine Ratio 10 % 07/17/22 06:02 Glucose 303 mg/dL (75-100) H 07/17/22 06:02 Calcium 7.9 mg/dL (8.4-10.2) L 07/17/22 06:02 Total Bilirubin 0.30 mg/dL (0.1-1.2) 07/15/22 15:49 AST 9 units/L (5-40) 07/15/22 15:49 ALT 14 units/L (7-56) 07/15/22 15:49 Alkaline Phosphatase 83 units/L (35-129) 07/15/22 15:49 Troponin T < 0.010 ng/mL (0.00-0.029) 07/16/22 10:09 Total Protein 5.7 g/dL (6.3-8.2) L 07/15/22 15:49 Albumin 3.9 g/dL (3.9-5) 07/15/22 15:49 Albumin/Globulin Ratio 2.2 % 07/15/22 15:49 Microbiology: Microbiology 07/16/22 10:09 Peripheral/Venous Blood Culture - Preliminary Culture in Progress 07/16/22 10:09 Peripheral/Venous Blood Culture - Preliminary Culture in Progress Steward/IV: Voiding Method Toilet Active Medications - Current Medications Current Medications: Generic Name Dose Route Start Last Admin Trade Name Freq PRN Reason Stop Dose Admin Acetaminophen 650 mg 07/15/22 22:49 Acetaminophen 325 Mg Tab PO Q4H PRN Pain MILD(1-3)/Fever >100.5/GRIER Aspirin 325 mg 07/16/22 10:00 07/16/22 09:01 Aspirin Ec 325 Mg Tab PO 325 mg QDAY BROOK Administration Atorvastatin Calcium 80 mg 07/16/22 10:00 07/16/22 09:01 Atorvastatin 40 Mg Tab PO 80 mg DAILY BROOK Administration Carvedilol 12.5 mg 07/16/22 08:00 07/16/22 09:01 Carvedilol 12.5 Mg Tab PO 12.5 mg DAILY@0800 BROOK Administration Enoxaparin Sodium 80 mg 07/16/22 10:00 07/16/22 21:54 Enoxaparin 80 Mg/0.8 Ml Inj SUB-Q 80 mg BID BROOK Administration Protocol Lamotrigine 100 mg 07/16/22 10:00 07/16/22 21:54 Lamotrigine 100 Mg Tab PO 100 mg BID BROOK Administration Levetiracetam 1,000 mg 07/16/22 10:00 07/16/22 21:54 Levetiracetam 500 Mg Tab PO 1,000 mg BID BROOK Administration Lorazepam 0.5 mg 07/16/22 12:00 07/16/22 12:09 Lorazepam 0.5 Mg Tab PO 0.5 mg Q12H PRN Administration Agitation Magnesium Hydroxide 30 ml 07/15/22 22:49 Magnesium Hydroxide (Mom) Oral Liqd Udc PO Q4H PRN Constipation Morphine Sulfate 2 mg 07/15/22 22:49 07/17/22 06:08 Morphine 2 Mg/1 Ml Inj IV 2 mg Q4H PRN Administration Pain, Moderate (4-6) Morphine Sulfate 4 mg 07/15/22 22:49 07/15/22 23:06 Morphine 4 Mg/1 Ml Inj IV 4 mg Q4H PRN Administration Pain , Severe (7-10) Morphine Sulfate 2 mg 07/15/22 22:49 Morphine 2 Mg/1 Ml Inj IV Q5MIN PRN Chest Pain unrelieved by NTG Nitroglycerin 0.4 mg 07/15/22 22:49 Nitroglycerin 0.4 Mg Tab Subl SL Q5M PRN Chest Pain Ondansetron HCl 4 mg 07/15/22 22:49 Ondansetron 4 Mg/2 Ml Inj IV Q8H PRN Nausea And Vomiting Sertraline HCl 100 mg 07/16/22 10:00 07/16/22 09:01 Sertraline 100 Mg Tab PO 100 mg QDAY BROOK Administration Sodium Chloride 10 ml 07/16/22 10:00 07/16/22 20:00 Sodium Chloride 0.9% 10 Ml Flush Syringe IV 10 ml BID BROOK Administration Sodium Chloride 10 ml 07/15/22 22:49 Sodium Chloride 0.9% 10 Ml Flush Syringe IV PRN PRN LINE FLUSH Tramadol HCl 50 mg 07/15/22 22:49 Tramadol 50 Mg Tab PO Q6H PRN Pain, Moderate (4-6) Trazodone HCl 100 mg 07/16/22 22:00 07/16/22 22:00 Trazodone 100 Mg Tab PO 100 mg QHS BROOK Administration
[2022-07-17] MEDS: carvediloL 12.5 MG TAB PO SCH (08:46)
[2022-07-17] MEDS ORDERED: VANCOMYCIN PHARMACY TO DOSE IV SCH (09:00)
[2022-07-17] MEDS: MORPHINE 4 MG/1 ML INJ IV PRN ×4 (09:13→21:35)
[2022-07-17] MEDS: ASPIRIN EC 325 MG TAB PO SCH (09:13)
[2022-07-17] MEDS: levETIRAcetam 500 MG TAB PO SCH ×2 (09:14→21:33)
[2022-07-17] MEDS: ENOXAPARIN 80 MG/0.8 ML INJ SUB-Q SCH ×2 (09:14→21:31)
[2022-07-17] MEDS: lamoTRIgine 100 MG TAB PO SCH ×2 (09:14→21:33)
[2022-07-17] MEDS: SERTRALINE 100 MG TAB PO SCH (09:16)
--- NOTE | 2022-07-17 10:07 | Progress Note ---
Assessment and Plan Chest pain, reason for admission Negative troponin x2 No ischemic EKG changes Chest x-ray showing cardiomegaly with mild interstitial pulmonary edema Coronary artery disease status post coronary artery bypass grafting in 2013 Cath reportedly performed 1 year ago in [place] revealing occlusion of the bypass graft. No reports are available for review. Mechanical aortic valve replacement History of aortic valve repair in 2013 History of mechanical aortic valve replacement 1 year ago Subtherapeutic INR, currently on Lovenox Chronic anemia of unclear source Stable hemoglobin and hematocrit Dual-chamber pacemaker, inserted 2 weeks ago in [place] (Biotronik per patient) Patient reports having an ICD with a ICD discharge yesterday. Chest x-ray reviewed, did not appreciate a shocking coil on x-ray. Device size also is not consistent with defibrillator. Pablo removed from the incision site today. Device interrogation is pending. History of PE and DVT status post IVC filter 10 years ago. Reported history of aortic aneurysm CT chest and abdomen done this admission reveals no evidence of aortic aneurysms Recommendations: Continue Lovenox 80 mg twice daily Hold warfarin in case invasive cardiac evaluation is needed. Obtain records from [place] (daughter to bring records with her to the hospital this afternoon per patient) Review device interrogation once performed. Follow-up blood cultures (device site is erythematous with clear to greenish drainage, surgical pablo were removed Monday, July 16) We will ask EP to assess incision site. We will keep n.p.o. after midnight for possible invasive or noninvasive cardiac evaluation pending review of medical records to be brought by the daughter this afternoon. Subjective Date of service: 07/17/22 Principal diagnosis: Chest pain Interval history: Patient is doing well this morning. He is complaining of tenderness over the pacemaker site. Pacemaker interrogation has not been performed yet. He is also describing clear to greenish discharge. Objective Vital Signs Temp Pulse Resp BP Pulse Ox 07/17/22 08:46 77 146/42 07/17/22 07:44 97.9 F 77 16 146/42 96 07/17/22 04:00 98 07/17/22 03:14 97.6 F 84 18 139/58 95 07/16/22 19:38 98.3 F 88 18 166/58 97 07/16/22 17:11 18 07/16/22 15:39 98.1 F 77 20 123/39 97 08/20/22 13:12 18 07/16/22 10:25 97 - Physical Examination Neck: Positive: neck supple Cardiac: Positive: Reg Rate and Rhythm Lungs: Positive: Normal Exam Neuro: Positive: Grossly Intact Abdomen: Positive: Soft Extremities: Absent: edema - Labs and Meds Coagulation 07/17/22 Range/Units 06:02 PT 13.2 (12.2-14.9) Sec. INR 0.91 (0.87-1.13) CBC 07/16/22 07/17/22 Range/Units 10:09 06:02 WBC 5.4 4.3 L (4.5-11.0) K/mm3 RBC 3.04 L 3.16 L (3.65-5.03) M/mm3 Hgb 8.2 L 8.4 L (11.8-15.2) gm/dl Hct 24.5 L 26.3 L (35.5-45.6) % Plt Count 146 143 (140-440) K/mm3 Lymph # (Auto) 0.3 L 0.5 L (1.2-5.4) K/mm3 [place] # (Auto) 0.5 0.4 (0.0-0.8) K/mm3 Eos # (Auto) 0.0 0.0 (0.0-0.4) K/mm3 Baso # (Auto) 0.0 0.0 (0.0-0.1) K/mm3 Comprehensive Metabolic Panel 07/16/22 07/17/22 Range/Units 10:09 06:02 Sodium 139 141 (137-145) mmol/L Potassium 3.9 3.0 L D (3.6-5.0) mmol/L Chloride 102.1 104.4 (98-107) mmol/L Carbon Dioxide 24 27 (22-30) mmol/L BUN 14 10 (9-20) mg/dL Creatinine 1.0 1.0 (0.8-1.3) mg/dL Glucose 270 H 303 H (75-100) mg/dL Calcium 8.7 7.9 L (8.4-10.2) mg/dL
[2022-07-17] MEDS ORDERED: POTASSIUM CHLORIDE ER 20 MEQ TAB PO ONE (11:00)
[2022-07-17] MEDS ORDERED: VANCOMYCIN 1,750 MG in SODIUM CHLORIDE 0.9% 500 ML 500 ML IV ONE (11:00)
[2022-07-17] MEDS: traZODone 100 MG TAB PO SCH (21:29)
[2022-07-17] MEDS: VANCOMYCIN/NS 1 GM/250 ML 1 GM/250 ML BAG IV SCH (23:05)
[2022-07-18] MEDS: MORPHINE 4 MG/1 ML INJ IV PRN ×6 (02:17→22:09)
[2022-07-18] MEDS ORDERED: REGADENOSON 0.4 MG/5 ML INJ IV ONE (08:35)
[2022-07-18] MEDS: carvediloL 12.5 MG TAB PO SCH (10:05)
[2022-07-18] MEDS: ENOXAPARIN 80 MG/0.8 ML INJ SUB-Q SCH ×2 (10:12→10:37)
[2022-07-18] MEDS: levETIRAcetam 500 MG TAB PO SCH ×2 (10:13→22:08)
[2022-07-18] MEDS: ASPIRIN EC 325 MG TAB PO SCH ×2 (10:13→10:38)
[2022-07-18] MEDS: lamoTRIgine 100 MG TAB PO SCH ×2 (10:14→22:08)
[2022-07-18] MEDS: SERTRALINE 100 MG TAB PO SCH (10:15)
[2022-07-18] MEDS: VANCOMYCIN/NS 1 GM/250 ML 1 GM/250 ML BAG IV SCH ×2 (10:42→22:07)
--- NOTE | 2022-07-18 10:51 | Progress Note ---
Assessment and Plan Assessment and plan: 87-year-old male with known history of hypertension, ascending aortic aneurysm, mechanical valve replacement, defibrillator, coronary artery disease with cardiac stent placement in the past, DVTPE with IVC filter placement presenting to the emergency room today for chest pain. Chest x-ray showed no acute findings. Chest CTA showed mild cardiomegaly with mild interstitial edema. No evidence of aneurysm/dissection involving the aortic arch or descending thoracic aorta. The patient was admitted with diagnoses below: Chest pain Hypertension Dual-chamber pacemaker, inserted 2 weeks ago in [place] ([employer]ronik per patient) Coronary artery disease status post coronary artery bypass grafting in 2012. Cath reportedly performed 1 year ago in [place] revealing occlusion of the bypass graft. History of ascending aortic aneurysm. 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 Cardiology following. Continue Lovenox 80 mg twice daily. Hold warfarin in case of invasive cardiac evaluation per cardiology. Obtain all records from [place]. Device interrogation is pending. Obtain blood cultures (device site is erythematous with clear drainage, surgical pablo were removed this morning). Negative troponin x2. No ischemic EKG changes 07/17/2022. Continue Lovenox 80 mg twice daily. Obtain all records from [place]. Device interrogation is pending. Obtain blood cultures (device site is erythematous with clear drainage, surgical pablo were removed yesterday morning). We will start empiric antibiotics of vancomycin for chest wall cellulitis. Consider ID consultation. Negative troponin x2. No ischemic EKG changes 07/18/2022. Replete potassium. Cardiology considering invasive ischemic evaluation. Continue Lovenox 80 mg twice daily. Subtherapeutic INR for mechanical valve. Obtain all records from [place]. Device interrogation is pending. Obtain blood cultures (device site is erythematous with clear drainage, surgical pablo were removed yesterday morning). Continue vancomycin for chest wall cellulitis. Consider ID consultation. Negative troponin x2. No ischemic EKG changes History Interval history: No new issues overnight Hospitalist Physical - Constitutional Vitals: Temp Pulse Resp BP Pulse Ox 99.4 F 86 18 134/56 98 07/17/22 22:00 07/17/22 22:15 07/17/22 22:00 07/17/22 22:00 07/18/22 02:40 General appearance: Present: no acute distress - EENT Eyes: Present: PERRL, EOM intact ENT: hearing intact, clear oral mucosa, dentition normal - Neck Neck: Present: supple, normal ROM - Respiratory Respiratory effort: normal Respiratory: bilateral: CTA - Cardiovascular Rhythm: regular Heart Sounds: Present: S1 & S2. Absent: gallop, rub - Extremities Extremities: no ischemia, No edema, Full ROM - Abdominal General gastrointestinal: soft, non-tender, non-distended, normal bowel sounds - Integumentary Integumentary: Present: clear, warm, dry - Neurologic Neurologic: CNII-XII intact, moves all extremities HEART Score - HEART Score EKG: Non-specific Age: 45-65 Risk factors: > 3 risk factors or hx of atherosclerotic disease Troponin: Troponin T < 0.010 ng/mL (0.00-0.029) 07/16/22 10:09 Troponin: < normal limit Results - Labs CBC & Chem 7: 07/17/22 06:02 07/17/22 06:02 Labs: Laboratory Last Values WBC 4.3 K/mm3 (4.5-11.0) L 07/17/22 06:02 RBC 3.16 M/mm3 (3.65-5.03) L 07/17/22 06:02 Hgb 8.4 gm/dl (11.8-15.2) L 07/17/22 06:02 Hct 26.3 % (35.5-45.6) L 07/17/22 06:02 MCV 83 fl (84-94) L 07/17/22 06:02 MCH 27 pg (28-32) L 07/17/22 06:02 MCHC 32 % (32-34) 07/17/22 06:02 RDW 23.1 % (13.2-15.2) H 07/17/22 06:02 Plt Count 143 K/mm3 (140-440) 07/17/22 06:02 Lymph % (Auto) 11.6 % (13.4-35.0) L 07/17/22 06:02 [place] % (Auto) 9.2 % (0.0-7.3) H 07/17/22 06:02 Eos % (Auto) 0.3 % (0.0-4.3) 07/17/22 06:02 Baso % (Auto) 0.2 % (0.0-1.8) 07/17/22 06:02 Lymph # (Auto) 0.5 K/mm3 (1.2-5.4) L 07/17/22 06:02 [place] # (Auto) 0.4 K/mm3 (0.0-0.8) 07/17/22 06:02 Eos # (Auto) 0.0 K/mm3 (0.0-0.4) 07/17/22 06:02 Baso # (Auto) 0.0 K/mm3 (0.0-0.1) 07/17/22 06:02 Add Manual Diff Complete 07/15/22 15:49 Total Counted 100 07/15/22 15:49 Seg Neutrophils % 78.7 % (40.0-70.0) H 07/17/22 06:02 Seg Neuts % (Manual) 90.0 % (40.0-70.0) H 07/15/22 15:49 Band Neutrophils % 1.0 % 07/15/22 15:49 Lymphocytes % (Manual) 3.0 % (13.4-35.0) L 07/15/22 15:49 Reactive Lymphs % (Man) 0 % 07/15/22 15:49 Monocytes % (Manual) 4.0 % (0.0-7.3) 07/15/22 15:49 Eosinophils % (Manual) 0 % (0.0-4.3) 07/15/22 15:49 Basophils % (Manual) 0 % (0.0-1.8) 07/15/22 15:49 Metamyelocytes % 1.0 % 07/15/22 15:49 Myelocytes % 1.0 % 07/15/22 15:49 Promyelocytes % 0 % 07/15/22 15:49 Blast Cells % 0 % 07/15/22 15:49 Nucleated RBC % Not Reportable 07/15/22 15:49 Seg Neutrophils # 3.4 K/mm3 (1.8-7.7) 07/17/22 06:02 Seg Neutrophils # Man 7.7 K/mm3 (1.8-7.7) 07/15/22 15:49 Band Neutrophils # 0.1 K/mm3 07/15/22 15:49 Lymphocytes # (Manual) 0.3 K/mm3 (1.2-5.4) L 07/15/22 15:49 Abs React Lymphs (Man) 0.0 K/mm3 07/15/22 15:49 Monocytes # (Manual) 0.3 K/mm3 (0.0-0.8) 07/15/22 15:49 Eosinophils # (Manual) 0.0 K/mm3 (0.0-0.4) 07/15/22 15:49 Basophils # (Manual) 0.0 K/mm3 (0.0-0.1) 07/15/22 15:49 Metamyelocytes # 0.1 K/mm3 07/15/22 15:49 Myelocytes # 0.1 K/mm3 07/15/22 15:49 Promyelocytes # 0.0 K/mm3 07/15/22 15:49 Blast Cells # 0.0 K/mm3 07/15/22 15:49 WBC Morphology Not Reportable 07/15/22 15:49 Hypersegmented Neuts Not Reportable 07/15/22 15:49 Hyposegmented Neuts Not Reportable 07/15/22 15:49 Hypogranular Neuts Not Reportable 07/15/22 15:49 Smudge Cells Not Reportable 07/15/22 15:49 Toxic Granulation Not Reportable 07/15/22 15:49 Toxic Vacuolation Not Reportable 07/15/22 15:49 Dohle Bodies Not Reportable 07/15/22 15:49 Pelger-Huet Anomaly Not Reportable 07/15/22 15:49 Bubba Rods Not Reportable 07/15/22 15:49 Platelet Estimate Consistent w auto 07/15/22 15:49 Clumped Platelets Not Reportable 07/15/22 15:49 Plt Clumps, EDTA Not Reportable 07/15/22 15:49 Large Platelets Not Reportable 07/15/22 15:49 Giant Platelets Not Reportable 07/15/22 15:49 Platelet Satelliting Not Reportable 07/15/22 15:49 Plt Morphology Comment Not Reportable 07/15/22 15:49 RBC Morphology Not Reportable 07/15/22 15:49 Dimorphic RBCs Not Reportable 07/15/22 15:49 Polychromasia Few 07/15/22 15:49 Hypochromasia Not Reportable 07/15/22 15:49 Poikilocytosis Not Reportable 07/15/22 15:49 Anisocytosis 2+ 07/15/22 15:49 Microcytosis Not Reportable 07/15/22 15:49 Macrocytosis Not Reportable 07/15/22 15:49 Spherocytes Not Reportable 07/15/22 15:49 Pappenheimer Bodies Not Reportable 07/15/22 15:49 Sickle Cells Not Reportable 07/15/22 15:49 Target Cells Not Reportable 07/15/22 15:49 Tear Drop Cells 1+ 07/15/22 15:49 Ovalocytes Few 07/15/22 15:49 Helmet Cells Not Reportable 07/15/22 15:49 [place] Bodies Not Reportable 07/15/22 15:49 [place] Rings Not Reportable 07/15/22 15:49 [place] Cells Not Reportable 07/15/22 15:49 Bite Cells Not Reportable 07/15/22 15:49 Crenated Cell Not Reportable 07/15/22 15:49 Elliptocytes Not Reportable 07/15/22 15:49 Acanthocytes (Spur) Not Reportable 07/15/22 15:49 Rouleaux Not Reportable 07/15/22 15:49 Hemoglobin C Crystals Not Reportable 07/15/22 15:49 Schistocytes Not Reportable 07/15/22 15:49 Malaria parasites Not Reportable 07/15/22 15:49 Indra Bodies Not Reportable 07/15/22 15:49 Hem Pathologist Commnt No 07/15/22 15:49 PT 13.2 Sec. (12.2-14.9) 07/17/22 06:02 INR 0.91 (0.87-1.13) 07/17/22 06:02 APTT 24.1 Sec. (24.2-36.6) L 07/15/22 15:49 Sodium 141 mmol/L (137-145) 07/17/22 06:02 Potassium 3.0 mmol/L (3.6-5.0) L D 07/17/22 06:02 Chloride 104.4 mmol/L (98-107) 07/17/22 06:02 Carbon Dioxide 27 mmol/L (22-30) 07/17/22 06:02 Anion Gap 13 mmol/L 07/17/22 06:02 BUN 10 mg/dL (9-20) 07/17/22 06:02 Creatinine 1.0 mg/dL (0.8-1.3) 07/17/22 06:02 Estimated GFR > 60 ml/min 07/17/22 06:02 BUN/Creatinine Ratio 10 % 07/17/22 06:02 Glucose 303 mg/dL (75-100) H 07/17/22 06:02 Calcium 7.9 mg/dL (8.4-10.2) L 07/17/22 06:02 Total Bilirubin 0.30 mg/dL (0.1-1.2) 07/15/22 15:49 AST 9 units/L (5-40) 07/15/22 15:49 ALT 14 units/L (7-56) 07/15/22 15:49 Alkaline Phosphatase 83 units/L (35-129) 07/15/22 15:49 Troponin T < 0.010 ng/mL (0.00-0.029) 07/16/22 10:09 Total Protein 5.7 g/dL (6.3-8.2) L 07/15/22 15:49 Albumin 3.9 g/dL (3.9-5) 07/15/22 15:49 Albumin/Globulin Ratio 2.2 % 07/15/22 15:49 Microbiology: Microbiology 07/16/22 10:09 Peripheral/Venous Blood Culture - Preliminary NO GROWTH AFTER 24 HOURS 07/16/22 10:09 Peripheral/Venous Blood Culture - Preliminary NO GROWTH AFTER 24 HOURS Steward/IV: Voiding Method Toilet Active Medications - Current Medications Current Medications: Generic Name Dose Route Start Last Admin Trade Name Freq PRN Reason Stop Dose Admin Acetaminophen 650 mg 07/15/22 22:49 Acetaminophen 325 Mg Tab PO Q4H PRN Pain MILD(1-3)/Fever >100.5/GRIER Aspirin 325 mg 07/16/22 10:00 07/18/22 10:38 Aspirin Ec 325 Mg Tab PO 325 mg QDAY BROOK Administration Atorvastatin Calcium 80 mg 07/16/22 10:00 07/18/22 10:14 Atorvastatin 40 Mg Tab PO 80 mg DAILY BROOK Administration Carvedilol 12.5 mg 07/16/22 08:00 07/18/22 10:05 Carvedilol 12.5 Mg Tab PO 12.5 mg DAILY@0800 BROOK Administration Enoxaparin Sodium 80 mg 07/16/22 10:00 07/18/22 10:37 Enoxaparin 80 Mg/0.8 Ml Inj SUB-Q 80 mg BID BROOK Administration Protocol Vancomycin HCl 1 gm in 250 mls @ 166.667 mls/hr 07/17/22 23:00 07/18/22 10:42 Vancomycin/Ns 1 Gm/250 Ml IV 166.667 mls/hr Q12H BROOK Administration Lamotrigine 100 mg 07/16/22 10:00 07/18/22 10:14 Lamotrigine 100 Mg Tab PO 100 mg BID BROOK Administration Levetiracetam 1,000 mg 07/16/22 10:00 07/18/22 10:13 Levetiracetam 500 Mg Tab PO 1,000 mg BID BROOK Administration Lorazepam 0.5 mg 07/16/22 12:00 07/16/22 12:09 Lorazepam 0.5 Mg Tab PO 0.5 mg Q12H PRN Administration Agitation Magnesium Hydroxide 30 ml 07/15/22 22:49 Magnesium Hydroxide (Mom) Oral Liqd Udc PO Q4H PRN Constipation Morphine Sulfate 2 mg 07/15/22 22:49 07/17/22 06:08 Morphine 2 Mg/1 Ml Inj IV 2 mg Q4H PRN Administration Pain, Moderate (4-6) Morphine Sulfate 4 mg 07/15/22 22:49 07/18/22 06:42 Morphine 4 Mg/1 Ml Inj IV 4 mg Q4H PRN Administration Pain , Severe (7-10) Morphine Sulfate 2 mg 07/15/22 22:49 Morphine 2 Mg/1 Ml Inj IV Q5MIN PRN Chest Pain unrelieved by NTG Nitroglycerin 0.4 mg 07/15/22 22:49 Nitroglycerin 0.4 Mg Tab Subl SL Q5M PRN Chest Pain Ondansetron HCl 4 mg 07/15/22 22:49 Ondansetron 4 Mg/2 Ml Inj IV Q8H PRN Nausea And Vomiting Sertraline HCl 100 mg 07/16/22 10:00 07/18/22 10:15 Sertraline 100 Mg Tab PO 100 mg QDAY BROOK Administration Sodium Chloride 10 ml 07/16/22 10:00 07/18/22 10:15 Sodium Chloride 0.9% 10 Ml Flush Syringe IV 10 ml BID BROOK Administration Sodium Chloride 10 ml 07/15/22 22:49 Sodium Chloride 0.9% 10 Ml Flush Syringe IV PRN PRN LINE FLUSH Tramadol HCl 50 mg 07/15/22 22:49 Tramadol 50 Mg Tab PO Q6H PRN Pain, Moderate (4-6) Trazodone HCl 100 mg 07/16/22 22:00 07/17/22 21:29 Trazodone 100 Mg Tab PO 100 mg QHS BROOK Administration
--- NOTE | 2022-07-18 12:32 | Progress Note ---
Assessment and Plan - Patient Problems (1) History of mechanical aortic valve replacement Current Visit: Yes Status: Acute Plan to address problem: The patient presented with subtherapeutic INR of 0.9, despite professed compliance with warfarin at 10 mg daily. I will start him on heparin therapy, as a bridge to ultimate latter-day of INR of 2.5-3.5 before hospital discharge. (2) Infection of pacemaker pulse generator site Current Visit: Yes Status: Acute Plan to address problem: I have consulted electrophysiology to evaluate his pacemaker generator pocket, he may eventually require an explant. Antibiotics have already been commenced, patient is on vancomycin. (3) Chest pain Current Visit: Yes Status: Acute Plan to address problem: Patient's chest pain is atypical, ECGs and troponin levels are unremarkable. We will await his records from [place] to review the ischemic evaluation prior to his mechanical valve replacement just last year. He would likely not require additional ischemic work-up at this time. Subjective Date of service: 07/18/22 Principal diagnosis: Chest pain Interval history: The patient is a 57-year-old man with complex coronary and valvular heart disease, who underwent mechanical aortic valve replacement a year ago in [place] where he lived until his recent move to the [facility]. His two-vessel coronary bypass was done previously, in 2012. He also has peripheral arterial disease and describes previous vascular interventional procedures. 2 weeks ago, he also had implanted an ICD defibrillator. At the time of his mechanical valve replacement last year, there is no report of his needing additional coronary intervention or bypass. He presented to the hospital at this time with atypical chest pain, serial ECGs and troponin levels are unremarkable. The most significant clinical problems that he presented with at this time: 1. The patient was not anticoagulated, with an INR of 0.9 despite reported compliance with warfarin. 2. The patient pacemaker insertion site appears erythematous, with purulent drainage from the suture lines. Objective Vital Signs Temp Pulse Resp BP BP Pulse Ox 07/18/22 02:40 98 07/17/22 22:15 86 07/17/22 22:00 99.4 F 86 18 134/56 97 07/17/22 21:59 134/56 07/17/22 20:10 90 07/17/22 16:15 98.4 F 83 18 139/65 97 07/17/22 16:00 98 - Physical Examination General: No Apparent Distress HEENT: Positive: PERRL Neck: Positive: neck supple Cardiac: Positive: Reg Rate and Rhythm Lungs: Positive: Decreased Breath Sounds Neuro: Positive: Grossly Intact Abdomen: Positive: Soft Skin: Positive: Wound (Infected pacemaker insertion site left upper chest) Extremities: Absent: edema
[2022-07-18] MEDS ORDERED: HEPARIN/ 0.45% NACL DRIP 25,000 UNIT/500 ML BAG IV SCH (14:00)
[2022-07-18] MEDS ORDERED: HEPARIN 10,000 UNITS/10 ML VIAL IV PRN (14:00)
--- NOTE | 2022-07-18 15:22 | Consultation ---
History of Present Illness Consult date: 07/18/22 Consult reason: other (Pacemaker infection) History of present illness: Electrophysiology Consult 57-year-old man currently hospitalized with chest pain who was noted to have drainage from PPM site. He has a history of coronary artery bypass grafting and aortic valve repair in 2012. 1 year ago he had to undergo mechanical aortic valve replacement after failure of his prior aortic valve repair. Patient reports he had PPM implanted in [place] about 2 weeks ago due to heart "stopping" for prolonged periods of time. He was noted to have pablo in place which were removed over the weekend. Drainage from site of pablo and erythema around incision was noted. He has been started on vancomycin and blood cultures are negative thus far. EP is being consulted due to concern regarding PPM system infection. His [employer]ron[employer] PPM was interrogated and I have reviewed interrogation. His pulse generator and both leads were implanted on 06/28/2022. He has required 0% atrial or ventricular pacing since implant. Past History Past Medical History: anemia, CAD, DVT, heart failure, hypertension, pulmonary e mbolism, other ( Ascending aorta aneurysm,mechanical valve replacement ,defibrilator,pacemaker,3 cardiac stents ,home oxygen ,dvt ,pe) Past Surgical History: valve replacement, CABG, Other (IVC Filter, coronary artery bypass graft and mechanical aortic valve replacement) Family history: no significant family history Medications and Allergies Allergies Allergy/AdvReac Type Severity Reaction Status Date / Time fentanyl Allergy Anaphylaxis Verified 07/18/22 10:31 Iodinated Contrast Media Allergy Anaphylaxis Verified 07/15/22 14:02 shellfish derived Allergy Anaphylaxis Verified 07/18/22 10:31 Home Medications Medication Instructions Recorded Confirmed Last Taken Type Atorvastatin [Lipitor Tab] 80 mg PO DAILY 07/16/22 07/16/22 07/15/22 History Enoxaparin Sodium [Lovenox] 80 mg SUB-Q BID 07/16/22 07/16/22 07/15/22 History Sertraline [Zoloft] 100 mg PO QDAY 07/16/22 07/16/22 07/15/22 History Warfarin [Coumadin] 10 mg PO QDAY 07/16/22 07/16/22 07/14/22 History carvediloL [Coreg] 12.5 mg PO DAILY 07/16/22 07/16/22 07/15/22 History lamoTRIgine [LaMICtal] 100 mg PO BID 07/16/22 07/16/22 07/15/22 History levETIRAcetam [Keppra TAB] 1,000 mg PO BID 07/16/22 07/16/22 07/15/22 History traZODone [Desyrel] 100 mg PO QHS 07/16/22 07/16/22 07/14/22 History Active Meds: Active Medications Acetaminophen (Acetaminophen 325 Mg Tab) 650 mg PO Q4H PRN PRN Reason: Pain MILD(1-3)/Fever >100.5/GRIER Aspirin (Aspirin Ec 325 Mg Tab) 325 mg PO QDAY [facility] Last Admin: 07/18/22 10:38 Dose: 325 mg Atorvastatin Calcium (Atorvastatin 40 Mg Tab) 80 mg PO DAILY [facility] Last Admin: 07/18/22 10:14 Dose: 80 mg Carvedilol (Carvedilol 12.5 Mg Tab) 12.5 mg PO DAILY@0800 [facility] Last Admin: 07/18/22 10:05 Dose: 12.5 mg Heparin Sodium (Porcine) (Heparin 10,000 Units/10 Ml Vial) 3,400 unit 40 unit/kg (3400 unit) IV Q6H PRN PRN Reason: Anti-Xa Assay < 0.1 units/ml Vancomycin HCl (Vancomycin/Ns 1 Gm/250 Ml) 1 gm in 250 mls @ 166.667 mls/hr IV Q12H [facility] Last Admin: 07/18/22 10:42 Dose: 166.667 mls/hr Heparin Sodium/Sodium Chloride (Heparin/ 0.45% Nacl-25,000 Unit/500 Ml) 25,000 unit in 500 mls @ 20 mls/hr IV TITRATE [facility]; Protocol Last Admin: 07/18/22 14:41 Dose: 1,000 units/hr, 20 mls/hr Lamotrigine (Lamotrigine 100 Mg Tab) 100 mg PO BID [facility] Last Admin: 07/18/22 10:14 Dose: 100 mg Levetiracetam (Levetiracetam 500 Mg Tab) 1,000 mg PO BID [facility] Last Admin: 07/18/22 10:13 Dose: 1,000 mg Lorazepam (Lorazepam 0.5 Mg Tab) 0.5 mg PO Q12H PRN PRN Reason: Agitation Last Admin: 07/16/22 12:09 Dose: 0.5 mg Magnesium Hydroxide (Magnesium Hydroxide (Mom) Oral Liqd Udc) 30 ml PO Q4H PRN PRN Reason: Constipation Morphine Sulfate (Morphine 2 Mg/1 Ml Inj) 2 mg IV Q4H PRN PRN Reason: Pain, Moderate (4-6) Last Admin: 07/17/22 06:08 Dose: 2 mg Morphine Sulfate (Morphine 4 Mg/1 Ml Inj) 4 mg IV Q4H PRN PRN Reason: Pain , Severe (7-10) Last Admin: 07/18/22 14:22 Dose: 4 mg Morphine Sulfate (Morphine 2 Mg/1 Ml Inj) 2 mg IV Q5MIN PRN PRN Reason: Chest Pain unrelieved by NTG Nitroglycerin (Nitroglycerin 0.4 Mg Tab Subl) 0.4 mg SL Q5M PRN PRN Reason: Chest Pain Ondansetron HCl (Ondansetron 4 Mg/2 Ml Inj) 4 mg IV Q8H PRN PRN Reason: Nausea And Vomiting Sertraline HCl (Sertraline 100 Mg Tab) 100 mg PO QDAY [facility] Last Admin: 07/18/22 10:15 Dose: 100 mg Sodium Chloride (Sodium Chloride 0.9% 10 Ml Flush Syringe) 10 ml IV BID [facility] Last Admin: 07/18/22 10:15 Dose: 10 ml Sodium Chloride (Sodium Chloride 0.9% 10 Ml Flush Syringe) 10 ml IV PRN PRN PRN Reason: LINE FLUSH Tramadol HCl (Tramadol 50 Mg Tab) 50 mg PO Q6H PRN PRN Reason: Pain, Moderate (4-6) Trazodone HCl (Trazodone 100 Mg Tab) 100 mg PO QHS [facility] Last Admin: 07/17/22 21:29 Dose: 100 mg Physical Examination Vital Signs Temp Pulse Resp BP Pulse Ox 98.1 F 110 H 18 128/76 99 07/15/22 13:57 07/15/22 13:57 07/15/22 13:57 07/15/22 13:57 07/15/22 13:57 General appearance: no acute distress HEENT: Positive: PERRL Neck: Positive: neck supple Cardiac: Positive: Reg Rate and Rhythm, Systolic Murmur Lungs: Positive: clear to auscultation Neuro: Positive: Grossly Intact Abdomen: Positive: Soft Skin: Positive: Other (Left chest PPM site evaluated. Erythema surrounding incision. Scant drainage from staple sites. No fluctuance in pocket.) Results 07/17/22 06:02 07/17/22 06:02 Assessment and Plan Assessment/Recommendations: 1. PPM incision infection after recent PPM implant in [place] on 06/28/2022. PPM pocket does not currently appear to be infected and blood cultures are negative thus far. Obtain ID consult and continue antibiotics per ID recommendations. If he starts developing fluctuance in PPM pocket, his blood cultures turn positive, or ID feels his PPM pocket is infected, we will plan for PPM system extraction. I have also instructed his nurse to clean incision and surrounding area twice a day with betadine. Additionally, continue to hold warfarin for now incase he ends up needing PPM extraction and continue bridging with IV heparin.
[2022-07-18] MEDS: traZODone 100 MG TAB PO SCH ×2 (22:01→22:07)
[2022-07-18] MEDS: POVIDONE-IODINE OINTMENT 28.35 GM TP SCH (22:22)
[2022-07-19 01:38] LABS: Hematocrit 26.5 % (35.5-45.6); Hemoglobin 8.7 gm/dl (11.8-15.2)
[2022-07-19 01:41] LABS: INR 0.82 (0.87-1.13); Partial Thromboplastin Time 33.2 Sec. (24.2-36.6)
[2022-07-19 06:22] LABS: Hematocrit 26.8 % (35.5-45.6); Hemoglobin 8.7 gm/dl (11.8-15.2); Mean Corpuscular HGB Conc 33 % (32-34); Mean Corpuscular Volume 83 fl (84-94); Platelet Count 123 K/mm3 (140-440); Red Blood Count 3.25 M/mm3 (3.65-5.03)
[2022-07-19 06:24] LABS: Red Cell Distribution Width 23.5 % (13.2-15.2)
[2022-07-19] MEDS: MORPHINE 4 MG/1 ML INJ IV PRN ×3 (06:34→14:44)
[2022-07-19 06:43] LABS: BUN/Creatinine Ratio 12; Blood Urea Nitrogen 11 mg/dL (9-20); Calcium 8.2 mg/dL (8.4-10.2); Hemolysis Index 7
[2022-07-19 07:24] LABS: Anisocytosis 2+; Band Neutrophils # (Manual) 0.1 K/mm3; Basophils % (Manual) 0 % (0.0-1.8); Ovalocytes Few; Platelet Estimate Consistent w Auto; Poikilocytosis 1+; Tear Drop Cells Few; Total Cells Counted 100
[2022-07-19 10:37] LABS: Iron 33 ug/dL (49-181); Total Iron Binding Capacity 205 mcg/dL (250-450)
[2022-07-19] MEDS: levETIRAcetam 500 MG TAB PO SCH ×2 (10:42→22:34)
[2022-07-19] MEDS: lamoTRIgine 100 MG TAB PO SCH ×2 (10:42→22:34)
[2022-07-19] MEDS: VANCOMYCIN/NS 1 GM/250 ML 1 GM/250 ML BAG IV SCH ×2 (10:42→22:33)
[2022-07-19] MEDS: SERTRALINE 100 MG TAB PO SCH (10:42)
[2022-07-19] MEDS: ASPIRIN EC 325 MG TAB PO SCH (10:42)
[2022-07-19] MEDS: POVIDONE-IODINE OINTMENT 28.35 GM TP SCH ×2 (10:42→22:43)
[2022-07-19] MEDS: carvediloL 12.5 MG TAB PO SCH (10:43)
--- NOTE | 2022-07-19 11:52 | Event Note ---
Date: 07/19/22 Patient is not in his room, said to be ambulating of the floor at the time of visit. The recommendations of the nutrition coordinator are noted with respect to the infected pacemaker site. Continue antibiotics and wound care. Continue intravenous heparin bridge therapy, warfarin will be restarted prior to discharge, after optimal management of infected pacemaker. Echocardiogram was done today, and will be reported subsequently.
--- NOTE | 2022-07-19 13:00 | Progress Note ---
Assessment and Plan Assessment and plan: 87-year-old male with known history of hypertension, ascending aortic aneurysm, mechanical valve replacement, defibrillator, coronary artery disease with cardiac stent placement in the past, DVTPE with IVC filter placement presenting to the emergency room today for chest pain. Chest x-ray showed no acute findings. Chest CTA showed mild cardiomegaly with mild interstitial edema. No evidence of aneurysm/dissection involving the aortic arch or descending thoracic aorta. The patient was admitted with diagnoses below: #Pacemaker pocket infection #Hypertension #Dual-chamber pacemaker inserted 2 weeks ago in [place] ([employer] per patient) #Coronary artery disease status post coronary artery bypass grafting in 2013. Cath reportedly performed 1 year ago in [place] revealing occlusion of the bypass graft. 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 Cardiology following. Continue Lovenox 80 mg twice daily. Hold warfarin in case of invasive cardiac evaluation per cardiology. Obtain all records from [place]. Device interrogation is pending. Obtain blood cultures (device site is erythematous with clear drainage, surgical pablo were removed this morning). Negative troponin x2. No ischemic EKG changes 07/17/2022. Continue Lovenox 80 mg twice daily. Obtain all records from [place]. Device interrogation is pending. Obtain blood cultures (device site is devora thematous with clear drainage, surgical pablo were removed yesterday morning). We will start empiric antibiotics of vancomycin for chest wall cellulitis. Consider ID consultation. Negative troponin x2. No ischemic EKG changes 07/18/2022. Replete potassium. Cardiology considering invasive ischemic evaluation. Continue Lovenox 80 mg twice daily. Subtherapeutic INR for mechanical valve. Obtain all records from [place]. Device interrogation is pending. Obtain blood cultures (device site is erythematous with clear drainage, surgical pablo were removed yesterday morning). Continue vancomycin for chest wall cellulitis. Consider ID consultation. Negative troponin x2. No ischemic EKG changes 07/19/2022. Infectious disease consulted for further recommendations regarding possible pacemaker pocket infection (pacemaker placed approximately 2 weeks ago and [place]). Continue vancomycin. Blood cultures unremarkable x2; however, patient and nursing endorse purulent discharge from pacemaker pocket. Continue heparin drip while determining if pacemaker will need to be removed. Patient will be discharged home on warfarin when medically cleared. Disposition Plan: Continue medical management Total Time Spent with Patient (Minutes): 45 minutes History Interval history: No acute events overnight. Hospitalist Physical - Constitutional Vitals: Temp Pulse Resp BP Pulse Ox 98.5 F 84 18 120/50 95 07/19/22 11:46 07/19/22 11:46 07/19/22 11:46 07/19/22 11:46 07/19/22 11:46 General appearance: Present: no acute distress, well-nourished, other (Pacemaker in upper left chest with purulent discharge oozing from pacemaker pocket) - EENT Eyes: Present: PERRL, EOM intact ENT: hearing intact, clear oral mucosa, dentition normal - Neck Neck: Present: supple, normal ROM - Respiratory Respiratory effort: normal Respiratory: bilateral: CTA - Cardiovascular Rhythm: regular Heart Sounds: Present: S1 & S2 - Extremities Extremities: no ischemia, pulses intact, pulses symmetrical, No edema, normal temperature, normal color Peripheral Pulses: within normal limits - Abdominal General gastrointestinal: soft, non-tender, non-distended, normal bowel sounds - Integumentary Integumentary: Present: clear, warm, dry - Psychiatric Psychiatric: appropriate mood/affect, intact judgment & insight, memory intact, cooperative - Neurologic Neurologic: CNII-XII intact - Allied Health Allied health notes reviewed: nursing, case management HEART Score - HEART Score EKG: Non-specific Age: 45-65 Risk factors: > 3 risk factors or hx of atherosclerotic disease Troponin: Troponin T < 0.010 ng/mL (0.00-0.029) 07/16/22 10:09 Troponin: < normal limit Results - Labs CBC & Chem 7: 07/19/22 04:00 07/19/22 05:30 Labs: Laboratory Last Values WBC 4.4 K/mm3 (4.5-11.0) L 07/19/22 04:00 RBC 3.25 M/mm3 (3.65-5.03) L 07/19/22 04:00 Hgb 8.7 gm/dl (11.8-15.2) L 07/19/22 04:00 Hct 26.8 % (35.5-45.6) L 07/19/22 04:00 MCV 83 fl (84-94) L 07/19/22 04:00 MCH 27 pg (28-32) L 07/19/22 04:00 MCHC 33 % (32-34) 07/19/22 04:00 RDW 23.5 % (13.2-15.2) H 07/19/22 04:00 Plt Count 123 K/mm3 (140-440) L 07/19/22 04:00 Lymph % (Auto) 11.6 % (13.4-35.0) L 07/17/22 06:02 [place] % (Auto) 9.2 % (0.0-7.3) H 07/17/22 06:02 Eos % (Auto) 0.3 % (0.0-4.3) 07/17/22 06:02 Baso % (Auto) 0.2 % (0.0-1.8) 07/17/22 06:02 Lymph # (Auto) 0.5 K/mm3 (1.2-5.4) L 07/17/22 06:02 [place] # (Auto) 0.4 K/mm3 (0.0-0.8) 07/17/22 06:02 Eos # (Auto) 0.0 K/mm3 (0.0-0.4) 07/17/22 06:02 Baso # (Auto) 0.0 K/mm3 (0.0-0.1) 07/17/22 06:02 Add Manual Diff Complete 07/19/22 04:00 Total Counted 100 07/19/22 04:00 Seg Neutrophils % 78.7 % (40.0-70.0) H 07/17/22 06:02 Seg Neuts % (Manual) 79.0 % (40.0-70.0) H 07/19/22 04:00 Band Neutrophils % 3.0 % 07/19/22 04:00 Lymphocytes % (Manual) 11.0 % (13.4-35.0) L 07/19/22 04:00 Reactive Lymphs % (Man) 0 % 07/19/22 04:00 Monocytes % (Manual) 5.0 % (0.0-7.3) 07/19/22 04:00 Eosinophils % (Manual) 2.0 % (0.0-4.3) 07/19/22 04:00 Basophils % (Manual) 0 % (0.0-1.8) 07/19/22 04:00 Metamyelocytes % 0 % 07/19/22 04:00 Myelocytes % 0 % 07/19/22 04:00 Promyelocytes % 0 % 07/19/22 04:00 Blast Cells % 0 % 07/19/22 04:00 Nucleated RBC % Not Reportable 07/19/22 04:00 Seg Neutrophils # 3.4 K/mm3 (1.8-7.7) 07/17/22 06:02 Seg Neutrophils # Man 3.5 K/mm3 (1.8-7.7) 07/19/22 04:00 Band Neutrophils # 0.1 K/mm3 07/19/22 04:00 Lymphocytes # (Manual) 0.5 K/mm3 (1.2-5.4) L 07/19/22 04:00 Abs React Lymphs (Man) 0.0 K/mm3 07/19/22 04:00 Monocytes # (Manual) 0.2 K/mm3 (0.0-0.8) 07/19/22 04:00 Eosinophils # (Manual) 0.1 K/mm3 (0.0-0.4) 07/19/22 04:00 Basophils # (Manual) 0.0 K/mm3 (0.0-0.1) 07/19/22 04:00 Metamyelocytes # 0.0 K/mm3 07/19/22 04:00 Myelocytes # 0.0 K/mm3 07/19/22 04:00 Promyelocytes # 0.0 K/mm3 07/19/22 04:00 Blast Cells # 0.0 K/mm3 07/19/22 04:00 WBC Morphology Not Reportable 07/19/22 04:00 Hypersegmented Neuts Not Reportable 07/19/22 04:00 Hyposegmented Neuts Not Reportable 07/19/22 04:00 Hypogranular Neuts Not Reportable 07/19/22 04:00 Smudge Cells Not Reportable 07/19/22 04:00 Toxic Granulation Not Reportable 07/19/22 04:00 Toxic Vacuolation Not Reportable 07/19/22 04:00 Dohle Bodies Not Reportable 07/19/22 04:00 Pelger-Huet Anomaly Not Reportable 07/19/22 04:00 Bubba Rods Not Reportable 07/19/22 04:00 Platelet Estimate Consistent w auto 07/19/22 04:00 Clumped Platelets Not Reportable 07/19/22 04:00 Plt Clumps, EDTA Not Reportable 07/19/22 04:00 Large Platelets Not Reportable 07/19/22 04:00 Giant Platelets Not Reportable 07/19/22 04:00 Platelet Satelliting Not Reportable 07/19/22 04:00 Plt Morphology Comment Not Reportable 07/19/22 04:00 RBC Morphology Not Reportable 07/19/22 04:00 Dimorphic RBCs Not Reportable 07/19/22 04:00 Polychromasia Not Reportable 07/19/22 04:00 Hypochromasia Not Reportable 07/19/22 04:00 Poikilocytosis 1+ 07/19/22 04:00 Anisocytosis 2+ 07/19/22 04:00 Microcytosis Not Reportable 07/19/22 04:00 Macrocytosis Not Reportable 07/19/22 04:00 Spherocytes Not Reportable 07/19/22 04:00 Pappenheimer Bodies Not Reportable 07/19/22 04:00 Sickle Cells Not Reportable 07/19/22 04:00 Target Cells Not Reportable 07/19/22 04:00 Tear Drop Cells Few 07/19/22 04:00 Ovalocytes Few 07/19/22 04:00 Helmet Cells Not Reportable 07/19/22 04:00 Licea-[place] Bodies Not Reportable 07/19/22 04:00 [place] Rings Not Reportable 07/19/22 04:00 [place] Cells Not Reportable 07/19/22 04:00 Bite Cells Not Reportable 07/19/22 04:00 Crenated Cell Not Reportable 07/19/22 04:00 Elliptocytes Few 07/19/22 04:00 Acanthocytes (Spur) Not Reportable 07/19/22 04:00 Rouleaux Not Reportable 07/19/22 04:00 Hemoglobin C Crystals Not Reportable 07/19/22 04:00 Schistocytes Not Reportable 07/19/22 04:00 Malaria parasites Not Reportable 07/19/22 04:00 Indra Bodies Not Reportable 07/19/22 04:00 Hem Pathologist Commnt No 07/19/22 04:00 PT 12.1 Sec. (12.2-14.9) L 07/18/22 Unknown INR 0.82 (0.87-1.13) L 07/18/22 Unknown APTT 33.2 Sec. (24.2-36.6) 07/18/22 Unknown Heparin Anti-Xa Level 0.20 U.I./ml (0.3-0.7) L 07/19/22 05:00 Sodium 141 mmol/L (137-145) 07/19/22 05:30 Potassium 4.4 mmol/L (3.6-5.0) D 07/19/22 05:30 Chloride 107.6 mmol/L (98-107) H 07/19/22 05:30 Carbon Dioxide 24 mmol/L (22-30) 07/19/22 05:30 Anion Gap 14 mmol/L 07/19/22 05:30 BUN 11 mg/dL (9-20) 07/19/22 05:30 Creatinine 0.9 mg/dL (0.8-1.3) 07/19/22 05:30 Estimated GFR > 60 ml/min 07/19/22 05:30 BUN/Creatinine Ratio 12 % 07/19/22 05:30 Glucose 151 mg/dL (75-100) H 07/19/22 05:30 Calcium 8.2 mg/dL (8.4-10.2) L 07/19/22 05:30 Iron 33 ug/dL (49-181) L 07/19/22 07:50 TIBC 205 mcg/dL (250-450) L 07/19/22 07:50 Total Bilirubin 0.30 mg/dL (0.1-1.2) 07/15/22 15:49 AST 9 units/L (5-40) 07/15/22 15:49 ALT 14 units/L (7-56) 07/15/22 15:49 Alkaline Phosphatase 83 units/L (35-129) 07/15/22 15:49 Troponin T < 0.010 ng/mL (0.00-0.029) 07/16/22 10:09 Total Protein 5.7 g/dL (6.3-8.2) L 07/15/22 15:49 Albumin 3.9 g/dL (3.9-5) 07/15/22 15:49 Albumin/Globulin Ratio 2.2 % 07/15/22 15:49 Microbiology: Microbiology 07/16/22 10:09 Peripheral/Venous Blood Culture - Preliminary NO GROWTH AFTER 48 HOURS 07/16/22 10:09 Peripheral/Venous Blood Culture - Preliminary NO GROWTH AFTER 48 HOURS Steward/IV: Voiding Method Toilet Active Medications - Current Medications Current Medications: Generic Name Dose Route Start Last Admin Trade Name Freq PRN Reason Stop Dose Admin Acetaminophen 650 mg 07/15/22 22:49 Acetaminophen 325 Mg Tab PO Q4H PRN Pain MILD(1-3)/Fever >100.5/GRIER Aspirin 325 mg 07/16/22 10:00 07/19/22 10:42 Aspirin Ec 325 Mg Tab PO 325 mg QDAY BROOK Administration Atorvastatin Calcium 80 mg 07/16/22 10:00 07/18/22 10:14 Atorvastatin 40 Mg Tab PO 80 mg DAILY BROOK Administration Carvedilol 12.5 mg 07/16/22 08:00 07/19/22 10:43 Carvedilol 12.5 Mg Tab PO 12.5 mg DAILY@0800 BROOK Administration Vancomycin HCl 1 gm in 250 mls @ 166.667 mls/hr 07/17/22 23:00 07/19/22 10:42 Vancomycin/Ns 1 Gm/250 Ml IV 166.667 mls/hr Q12H BROOK Administration Heparin Sodium/Sodium Chloride 25,000 unit in 500 mls @ 20 mls/hr 07/18/22 14:00 07/19/22 07:41 Heparin/ 0.45% Nacl-25,000 Unit/500 Ml IV 1,000 units/hr TITRATE BROOK 20 mls/hr Titration Protocol 1,000 UNITS/HR Lamotrigine 100 mg 07/16/22 10:00 07/19/22 10:42 Lamotrigine 100 Mg Tab PO 100 mg BID BROOK Administration Levetiracetam 1,000 mg 07/16/22 10:00 07/19/22 10:42 Levetiracetam 500 Mg Tab PO 1,000 mg BID BROOK Administration Lorazepam 0.5 mg 07/16/22 12:00 07/16/22 12:09 Lorazepam 0.5 Mg Tab PO 0.5 mg Q12H PRN Administration Agitation Magnesium Hydroxide 30 ml 07/15/22 22:49 Magnesium Hydroxide (Mom) Oral Liqd Udc PO Q4H PRN Constipation Morphine Sulfate 2 mg 07/15/22 22:49 07/17/22 06:08 Morphine 2 Mg/1 Ml Inj IV 2 mg Q4H PRN Administration Pain, Moderate (4-6) Morphine Sulfate 4 mg 07/15/22 22:49 07/19/22 10:43 Morphine 4 Mg/1 Ml Inj IV 4 mg Q4H PRN Administration Pain , Severe (7-10) Morphine Sulfate 2 mg 07/15/22 22:49 Morphine 2 Mg/1 Ml Inj IV Q5MIN PRN Chest Pain unrelieved by NTG Nitroglycerin 0.4 mg 07/15/22 22:49 Nitroglycerin 0.4 Mg Tab Subl SL Q5M PRN Chest Pain Ondansetron HCl 4 mg 07/15/22 22:49 Ondansetron 4 Mg/2 Ml Inj IV Q8H PRN Nausea And Vomiting Povidone Iodine 1 applic 07/18/22 22:00 07/19/22 10:42 Povidone-Iodine Ointment 28.35 Gm TP 1 applic BID BROOK Administration Sertraline HCl 100 mg 07/16/22 10:00 07/19/22 10:42 Sertraline 100 Mg Tab PO 100 mg QDAY BROOK Administration Sodium Chloride 10 ml 07/16/22 10:00 07/19/22 10:43 Sodium Chloride 0.9% 10 Ml Flush Syringe IV 10 ml BID BROOK Administration Sodium Chloride 10 ml 07/15/22 22:49 Sodium Chloride 0.9% 10 Ml Flush Syringe IV PRN PRN LINE FLUSH Tramadol HCl 50 mg 07/15/22 22:49 Tramadol 50 Mg Tab PO Q6H PRN Pain, Moderate (4-6) Trazodone HCl 100 mg 07/16/22 22:00 07/18/22 22:07 Trazodone 100 Mg Tab PO 100 mg QHS BROOK Administration
--- NOTE | 2022-07-19 13:37 | Electrocardiograph Report ---
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
--- NOTE | 2022-07-19 13:46 | Electrocardiograph Report ---
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
--- NOTE | 2022-07-19 16:34 | Event Note ---
Date: 07/19/22 87-year-old man past medical history hypertension, mechanical valve replacement, defibrillator in place, CAD presented to hospital complaining of chest pain. This began approximately 3 to 4 hours prior to admission. It was associated with nausea, vomiting, shortness of breath. He already has a PICC line in place for unclear reasons. Of note his pacemaker was recently placed approximately 2 weeks ago. He nursing has noted purulent discharge come from pacemaker pocket. Afebrile since admission with a white count of 4.4. Currently on vancomycin. Blood cultures no growth so far. Patient not in room on rounds. Continue vancomycin Recommend HUSEYIN to ensure no culture-negative endocarditis or lead infection. If blood cultures and HUSEYIN negative, can leave pacemaker in place and treat with oral antibiotics.
[2022-07-19] MEDS: MORPHINE 2 MG/1 ML INJ IV PRN ×2 (18:38→22:33)
[2022-07-19] MEDS: traZODone 100 MG TAB PO SCH (22:34)
[2022-07-20] MEDS: MORPHINE 2 MG/1 ML INJ IV PRN ×4 (03:57→18:39)
[2022-07-20 05:53] LABS: Basophils % (Auto) 0.5 % (0.0-1.8); Eosinophils % (Auto) 0.9 % (0.0-4.3); Hematocrit 24.7 % (35.5-45.6); Hemoglobin 7.9 gm/dl (11.8-15.2); Lymphocytes # (Auto) 0.3 K/mm3 (1.2-5.4); Lymphocytes % (Auto) 11.5 % (13.4-35.0); Mean Corpuscular HGB Conc 32 % (32-34); Mean Corpuscular Volume 83 fl (84-94); Monocytes # (Auto) 0.3 K/mm3 (0.0-0.8); Platelet Count 106 K/mm3 (140-440); Red Blood Count 2.97 M/mm3 (3.65-5.03)
[2022-07-20 05:54] LABS: Red Cell Distribution Width 23.8 % (13.2-15.2)
[2022-07-20 06:24] LABS: BUN/Creatinine Ratio 13; Blood Urea Nitrogen 9 mg/dL (9-20)
[2022-07-20 06:36] LABS: Calcium 7.6 mg/dL (8.4-10.2); Hemolysis Index 16
[2022-07-20] MEDS: levETIRAcetam 500 MG TAB PO SCH ×2 (10:09→22:20)
[2022-07-20] MEDS: carvediloL 12.5 MG TAB PO SCH (10:09)
[2022-07-20] MEDS: lamoTRIgine 100 MG TAB PO SCH ×2 (10:09→22:20)
[2022-07-20] MEDS: SERTRALINE 100 MG TAB PO SCH (10:09)
[2022-07-20] MEDS: ASPIRIN EC 325 MG TAB PO SCH (10:09)
[2022-07-20] MEDS: VANCOMYCIN/NS 1 GM/250 ML 1 GM/250 ML BAG IV SCH ×2 (13:52→22:19)
[2022-07-20] MEDS: POVIDONE-IODINE OINTMENT 28.35 GM TP SCH (13:52)
--- NOTE | 2022-07-20 14:10 | Progress Note ---
Assessment and Plan - Patient Problems (1) History of mechanical aortic valve replacement Current Visit: Yes Status: Acute Plan to address problem: The patient presented with subtherapeutic INR of 0.9, despite professed compliance with warfarin at 10 mg daily. In the absence of immediate plans for pacemaker explant, I will start warfarin 10 mg daily, goal of INR is 2.5-3.5. (2) Infection of pacemaker pulse generator site Current Visit: Yes Status: Acute Plan to address problem: I have corrected the patient's impression that he has a defibrillator. There is no defibrillator, he has a dual-chamber pacemaker implant. The apparent infection is thought to be a superficial infection, with no evidence of fluctuance in the generator pocket. Blood cultures are negative for 72 hours. At this time, he will be recommended for continued antibiotic therapy with vancomycin, and continued wound care. Ultimately if his clinical status remains stable, he may be discharged to continue IV antibiotics at home or a nursing facility, after his warfarin is therapeutic. Patient already has an indwelling left arm venous infusion catheter. (3) Chest pain Current Visit: Yes Status: Acute Plan to address problem: Patient's chest pain is atypical, ECGs and troponin levels are unremarkable. We will await his records from [place] to review the ischemic evaluation prior to his mechanical valve replacement just last year. He would likely not require additional ischemic work-up at this time. Subjective Date of service: 07/20/22 Principal diagnosis: Chest pain Interval history: The patient is comfortable, asymptomatic cardiac status. His left upper chest pacemaker generator site appears improved, evidence of superficial infection and erythema improved. Objective Vital Signs Temp Pulse Resp BP BP Pulse Ox 07/20/22 10:00 98 07/20/22 07:48 98.3 F 84 18 137/59 96 07/20/22 07:21 84 07/20/22 03:52 98.1 F 89 14 120/67 99 07/19/22 23:24 99.3 F 91 H 18 121/58 94 07/19/22 22:49 94 07/19/22 22:00 108 H 07/19/22 20:35 99 F 90 16 115/62 94 07/19/22 16:03 97.9 F 90 18 101/49 94 - Physical Examination General: No Apparent Distress HEENT: Positive: PERRL Neck: Positive: neck supple Cardiac: Positive: Reg Rate and Rhythm, Systolic Murmur Lungs: Positive: Decreased Breath Sounds Neuro: Positive: Grossly Intact Abdomen: Positive: Soft Skin: Positive: Other (Left chest PPM site evaluated. Erythema surrounding incision. Scant drainage from staple sites. No fluctuance in pocket.) Extremities: Absent: edema - Labs and Meds CBC 07/20/22 Range/Units 04:00 WBC 3.0 L (4.5-11.0) K/mm3 RBC 2.97 L (3.65-5.03) M/mm3 Hgb 7.9 L (11.8-15.2) gm/dl Hct 24.7 L (35.5-45.6) % Plt Count 106 L (140-440) K/mm3 Lymph # (Auto) 0.3 L (1.2-5.4) K/mm3 [place] # (Auto) 0.3 (0.0-0.8) K/mm3 Eos # (Auto) 0.0 (0.0-0.4) K/mm3 Baso # (Auto) 0.0 (0.0-0.1) K/mm3 Comprehensive Metabolic Panel 07/20/22 Range/Units 04:00 Sodium 139 (137-145) mmol/L Potassium 3.7 (3.6-5.0) mmol/L Chloride 105.8 (98-107) mmol/L Carbon Dioxide 22 (22-30) mmol/L BUN 9 (9-20) mg/dL Creatinine 0.7 L (0.8-1.3) mg/dL Glucose 216 H (75-100) mg/dL Calcium 7.6 L (8.4-10.2) mg/dL
[2022-07-20] MEDS ORDERED: WARFARIN 10 MG TAB PO SCH (17:00)
--- NOTE | 2022-07-20 17:07 | Progress Note ---
Assessment and Plan Assessment and plan: 87-year-old male with known history of hypertension, ascending aortic aneurysm, mechanical valve replacement, defibrillator, coronary artery disease with cardiac stent placement in the past, DVTPE with IVC filter placement presenting to the emergency room today for chest pain. Chest x-ray showed no acute findings. Chest CTA showed mild cardiomegaly with mild interstitial edema. No evidence of aneurysm/dissection involving the aortic arch or descending thoracic aorta. The patient was admitted with diagnoses below: #Pacemaker pocket infection #Hypertension #Dual-chamber pacemaker inserted 2 weeks ago in [place] ([employer] per patient) #Coronary artery disease status post coronary artery bypass grafting in 2013. Cath reportedly performed 1 year ago in [place] revealing occlusion of the bypass graft. 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 Cardiology following. Continue Lovenox 80 mg twice daily. Hold warfarin in case of invasive cardiac evaluation per cardiology. Obtain all records from [place]. Device interrogation is pending. Obtain blood cultures (device site is erythematous with clear drainage, surgical pabol were removed this morning). Negative troponin x2. No ischemic EKG changes 07/17/2022. Continue Lovenox 80 mg twice daily. Obtain all records from [place]. Device interrogation is pending. Obtain blood cultures (device site is devora thematous with clear drainage, surgical pablo were removed yesterday morning). We will start empiric antibiotics of vancomycin for chest wall cellulitis. Consider ID consultation. Negative troponin x2. No ischemic EKG changes 07/18/2022. Replete potassium. Cardiology considering invasive ischemic evaluation. Continue Lovenox 80 mg twice daily. Subtherapeutic INR for mechanical valve. Obtain all records from [place]. Device interrogation is pending. Obtain blood cultures (device site is erythematous with clear drainage, surgical pablo were removed yesterday morning). Continue vancomycin for chest wall cellulitis. Consider ID consultation. Negative troponin x2. No ischemic EKG changes 07/19/2022. Infectious disease consulted for further recommendations regarding possible pacemaker pocket infection (pacemaker placed approximately 2 weeks ago and [place]). Continue vancomycin. Blood cultures unremarkable x2; however, patient and nursing endorse purulent discharge from pacemaker pocket. Continue heparin ip while determining if pacemaker will need to be removed. Patient will be discharged home on warfarin when medically cleared. 07/20/2022. Cardiology starting warfarin 10 mg daily. Continue heparin for bridging. Continue vancomycin; blood cultures unremarkable x72 hours. Pending final oral antibiotics by cardiology. Disposition Plan: Continue medical management Total Time Spent with Patient (Minutes): 45 minutes History Interval history: No acute events overnight. Hospitalist Physical - Constitutional Vitals: Temp Pulse Resp BP Pulse Ox 97.9 F 80 18 101/50 95 07/20/22 16:28 07/20/22 16:28 07/20/22 16:28 07/20/22 16:28 07/20/22 16:28 General appearance: Present: no acute distress, well-nourished, other (Pacemaker in upper left chest with purulent discharge oozing from pacemaker pocket) - EENT Eyes: Present: PERRL, EOM intact ENT: hearing intact, clear oral mucosa, dentition normal - Neck Neck: Present: supple, normal ROM - Respiratory Respiratory effort: normal Respiratory: bilateral: CTA - Cardiovascular Rhythm: regular Heart Sounds: Present: S1 & S2 - Extremities Extremities: no ischemia, pulses intact, pulses symmetrical, No edema, normal temperature, normal color Peripheral Pulses: within normal limits - Abdominal General gastrointestinal: soft, non-tender, non-distended, normal bowel sounds - Integumentary Integumentary: Present: clear, warm, dry - Psychiatric Psychiatric: appropriate mood/affect, intact judgment & insight, memory intact, cooperative - Neurologic Neurologic: CNII-XII intact - Allied Health Allied health notes reviewed: nursing, case management HEART Score - HEART Score EKG: Non-specific Age: 45-65 Risk factors: > 3 risk factors or hx of atherosclerotic disease Troponin: Troponin T < 0.010 ng/mL (0.00-0.029) 07/16/22 10:09 Troponin: < normal limit Results - Labs CBC & Chem 7: 07/20/22 04:00 07/20/22 04:00 Labs: Laboratory Last Values WBC 3.0 K/mm3 (4.5-11.0) L 07/20/22 04:00 RBC 2.97 M/mm3 (3.65-5.03) L 07/20/22 04:00 Hgb 7.9 gm/dl (11.8-15.2) L 07/20/22 04:00 Hct 24.7 % (35.5-45.6) L 07/20/22 04:00 MCV 83 fl (84-94) L 07/20/22 04:00 MCH 27 pg (28-32) L 07/20/22 04:00 MCHC 32 % (32-34) 07/20/22 04:00 RDW 23.8 % (13.2-15.2) H 07/20/22 04:00 Plt Count 106 K/mm3 (140-440) L 07/20/22 04:00 Lymph % (Auto) 11.5 % (13.4-35.0) L 07/20/22 04:00 [place] % (Auto) 11.0 % (0.0-7.3) H 07/20/22 04:00 Eos % (Auto) 0.9 % (0.0-4.3) 07/20/22 04:00 Baso % (Auto) 0.5 % (0.0-1.8) 07/20/22 04:00 Lymph # (Auto) 0.3 K/mm3 (1.2-5.4) L 07/20/22 04:00 [place] # (Auto) 0.3 K/mm3 (0.0-0.8) 07/20/22 04:00 Eos # (Auto) 0.0 K/mm3 (0.0-0.4) 07/20/22 04:00 Baso # (Auto) 0.0 K/mm3 (0.0-0.1) 07/20/22 04:00 Add Manual Diff Complete 07/19/22 04:00 Total Counted 100 07/19/22 04:00 Seg Neutrophils % 76.1 % (40.0-70.0) H 07/20/22 04:00 Seg Neuts % (Manual) 79.0 % (40.0-70.0) H 07/19/22 04:00 Band Neutrophils % 3.0 % 07/19/22 04:00 Lymphocytes % (Manual) 11.0 % (13.4-35.0) L 07/19/22 04:00 Reactive Lymphs % (Man) 0 % 07/19/22 04:00 Monocytes % (Manual) 5.0 % (0.0-7.3) 07/19/22 04:00 Eosinophils % (Manual) 2.0 % (0.0-4.3) 07/19/22 04:00 Basophils % (Manual) 0 % (0.0-1.8) 07/19/22 04:00 Metamyelocytes % 0 % 07/19/22 04:00 Myelocytes % 0 % 07/19/22 04:00 Promyelocytes % 0 % 07/19/22 04:00 Blast Cells % 0 % 07/19/22 04:00 Nucleated RBC % Not Reportable 07/19/22 04:00 Seg Neutrophils # 2.3 K/mm3 (1.8-7.7) 07/20/22 04:00 Seg Neutrophils # Man 3.5 K/mm3 (1.8-7.7) 07/19/22 04:00 Band Neutrophils # 0.1 K/mm3 07/19/22 04:00 Lymphocytes # (Manual) 0.5 K/mm3 (1.2-5.4) L 07/19/22 04:00 Abs React Lymphs (Man) 0.0 K/mm3 07/19/22 04:00 Monocytes # (Manual) 0.2 K/mm3 (0.0-0.8) 07/19/22 04:00 Eosinophils # (Manual) 0.1 K/mm3 (0.0-0.4) 07/19/22 04:00 Basophils # (Manual) 0.0 K/mm3 (0.0-0.1) 07/19/22 04:00 Metamyelocytes # 0.0 K/mm3 07/19/22 04:00 Myelocytes # 0.0 K/mm3 07/19/22 04:00 Promyelocytes # 0.0 K/mm3 07/19/22 04:00 Blast Cells # 0.0 K/mm3 07/19/22 04:00 WBC Morphology Not Reportable 07/19/22 04:00 Hypersegmented Neuts Not Reportable 07/19/22 04:00 Hyposegmented Neuts Not Reportable 07/19/22 04:00 Hypogranular Neuts Not Reportable 07/19/22 04:00 Smudge Cells Not Reportable 07/19/22 04:00 Toxic Granulation Not Reportable 07/19/22 04:00 Toxic Vacuolation Not Reportable 07/19/22 04:00 Dohle Bodies Not Reportable 07/19/22 04:00 Pelger-Huet Anomaly Not Reportable 07/19/22 04:00 Bubba Rods Not Reportable 07/19/22 04:00 Platelet Estimate Consistent w auto 07/19/22 04:00 Clumped Platelets Not Reportable 07/19/22 04:00 Plt Clumps, EDTA Not Reportable 07/19/22 04:00 Large Platelets Not Reportable 07/19/22 04:00 Giant Platelets Not Reportable 07/19/22 04:00 Platelet Satelliting Not Reportable 07/19/22 04:00 Plt Morphology Comment Not Reportable 07/19/22 04:00 RBC Morphology Not Reportable 07/19/22 04:00 Dimorphic RBCs Not Reportable 07/19/22 04:00 Polychromasia Not Reportable 07/19/22 04:00 Hypochromasia Not Reportable 07/19/22 04:00 Poikilocytosis 1+ 07/19/22 04:00 Anisocytosis 2+ 07/19/22 04:00 Microcytosis Not Reportable 07/19/22 04:00 Macrocytosis Not Reportable 07/19/22 04:00 Spherocytes Not Reportable 07/19/22 04:00 Pappenheimer Bodies Not Reportable 07/19/22 04:00 Sickle Cells Not Reportable 07/19/22 04:00 Target Cells Not Reportable 07/19/22 04:00 Tear Drop Cells Few 07/19/22 04:00 Ovalocytes Few 07/19/22 04:00 Helmet Cells Not Reportable 07/19/22 04:00 Licea-[place] Bodies Not Reportable 07/19/22 04:00 Imogene Rings Not Reportable 07/19/22 04:00 [place] Cells Not Reportable 07/19/22 04:00 Bite Cells Not Reportable 07/19/22 04:00 Crenated Cell Not Reportable 07/19/22 04:00 Elliptocytes Few 07/19/22 04:00 Acanthocytes (Spur) Not Reportable 07/19/22 04:00 Rouleaux Not Reportable 07/19/22 04:00 Hemoglobin C Crystals Not Reportable 07/19/22 04:00 Schistocytes Not Reportable 07/19/22 04:00 Malaria parasites Not Reportable 07/19/22 04:00 Indra Bodies Not Reportable 07/19/22 04:00 Hem Pathologist Commnt No 07/19/22 04:00 PT 12.1 Sec. (12.2-14.9) L 07/18/22 Unknown INR 0.82 (0.87-1.13) L 07/18/22 Unknown APTT 33.2 Sec. (24.2-36.6) 07/18/22 Unknown Heparin Anti-Xa Level 0.20 U.I./ml (0.3-0.7) L 07/19/22 05:00 Sodium 139 mmol/L (137-145) 07/20/22 04:00 Potassium 3.7 mmol/L (3.6-5.0) 07/20/22 04:00 Chloride 105.8 mmol/L (98-107) 07/20/22 04:00 Carbon Dioxide 22 mmol/L (22-30) 07/20/22 04:00 Anion Gap 15 mmol/L 07/20/22 04:00 BUN 9 mg/dL (9-20) 07/20/22 04:00 Creatinine 0.7 mg/dL (0.8-1.3) L 07/20/22 04:00 Estimated GFR > 60 ml/min 07/20/22 04:00 BUN/Creatinine Ratio 13 % 07/20/22 04:00 Glucose 216 mg/dL (75-100) H 07/20/22 04:00 Calcium 7.6 mg/dL (8.4-10.2) L 07/20/22 04:00 Iron 33 ug/dL (49-181) L 07/19/22 07:50 TIBC 205 mcg/dL (250-450) L 07/19/22 07:50 Total Bilirubin 0.30 mg/dL (0.1-1.2) 07/15/22 15:49 AST 9 units/L (5-40) 07/15/22 15:49 ALT 14 units/L (7-56) 07/15/22 15:49 Alkaline Phosphatase 83 units/L (35-129) 07/15/22 15:49 Troponin T < 0.010 ng/mL (0.00-0.029) 07/16/22 10:09 Total Protein 5.7 g/dL (6.3-8.2) L 07/15/22 15:49 Albumin 3.9 g/dL (3.9-5) 07/15/22 15:49 Albumin/Globulin Ratio 2.2 % 07/15/22 15:49 Microbiology: Microbiology 07/16/22 10:09 Peripheral/Venous Blood Culture - Preliminary NO GROWTH AFTER 4 DAYS 07/16/22 10:09 Peripheral/Venous Blood Culture - Preliminary NO GROWTH AFTER 4 DAYS Steward/IV: Voiding Method Toilet Active Medications - Current Medications Current Medications: Generic Name Dose Route Start Last Admin Trade Name Freq PRN Reason Stop Dose Admin Acetaminophen 650 mg 07/15/22 22:49 Acetaminophen 325 Mg Tab PO Q4H PRN Pain MILD(1-3)/Fever >100.5/GRIER Aspirin 325 mg 07/16/22 10:00 07/20/22 10:09 Aspirin Ec 325 Mg Tab PO 325 mg QDAY BROOK Administration Atorvastatin Calcium 80 mg 07/16/22 10:00 07/20/22 10:09 Atorvastatin 40 Mg Tab PO 80 mg DAILY BROOK Administration Carvedilol 12.5 mg 07/16/22 08:00 07/20/22 10:09 Carvedilol 12.5 Mg Tab PO 12.5 mg DAILY@0800 BROOK Administration Vancomycin HCl 1 gm in 250 mls @ 166.667 mls/hr 07/17/22 23:00 07/20/22 13:52 Vancomycin/Ns 1 Gm/250 Ml IV 166.667 mls/hr Q12H BROOK Administration Heparin Sodium/Sodium Chloride 25,000 unit in 500 mls @ 20 mls/hr 07/18/22 14:00 07/19/22 07:41 Heparin/ 0.45% Nacl-25,000 Unit/500 Ml IV 1,000 units/hr TITRATE BROOK 20 mls/hr Titration Protocol 1,000 UNITS/HR Lamotrigine 100 mg 07/16/22 10:00 07/20/22 10:09 Lamotrigine 100 Mg Tab PO 100 mg BID BROOK Administration Levetiracetam 1,000 mg 07/16/22 10:00 07/20/22 10:09 Levetiracetam 500 Mg Tab PO 1,000 mg BID BROOK Administration Lorazepam 0.5 mg 07/16/22 12:00 07/16/22 12:09 Lorazepam 0.5 Mg Tab PO 0.5 mg Q12H PRN Administration Agitation Magnesium Hydroxide 30 ml 07/15/22 22:49 Magnesium Hydroxide (Mom) Oral Liqd Udc PO Q4H PRN Constipation Morphine Sulfate 2 mg 07/15/22 22:49 07/20/22 14:54 Morphine 2 Mg/1 Ml Inj IV 2 mg Q4H PRN Administration Pain, Moderate (4-6) Morphine Sulfate 4 mg 07/15/22 22:49 07/19/22 14:44 Morphine 4 Mg/1 Ml Inj IV 4 mg Q4H PRN Administration Pain , Severe (7-10) Morphine Sulfate 2 mg 07/15/22 22:49 Morphine 2 Mg/1 Ml Inj IV Q5MIN PRN Chest Pain unrelieved by NTG Nitroglycerin 0.4 mg 07/15/22 22:49 Nitroglycerin 0.4 Mg Tab Subl SL Q5M PRN Chest Pain Ondansetron HCl 4 mg 07/15/22 22:49 Ondansetron 4 Mg/2 Ml Inj IV Q8H PRN Nausea And Vomiting Povidone Iodine 1 applic 07/18/22 22:00 07/20/22 13:52 Povidone-Iodine Ointment 28.35 Gm TP 1 applic BID BROOK Administration Sertraline HCl 100 mg 07/16/22 10:00 07/20/22 10:09 Sertraline 100 Mg Tab PO 100 mg QDAY BROOK Administration Sodium Chloride 10 ml 07/16/22 10:00 07/20/22 10:09 Sodium Chloride 0.9% 10 Ml Flush Syringe IV 10 ml BID BROOK Administration Sodium Chloride 10 ml 07/15/22 22:49 Sodium Chloride 0.9% 10 Ml Flush Syringe IV PRN PRN LINE FLUSH Tramadol HCl 50 mg 07/15/22 22:49 Tramadol 50 Mg Tab PO Q6H PRN Pain, Moderate (4-6) Trazodone HCl 100 mg 07/16/22 22:00 07/19/22 22:34 Trazodone 100 Mg Tab PO 100 mg QHS BROOK Administration Warfarin Sodium 10 mg 07/20/22 17:00 Warfarin 10 Mg Tab PO DAILY@1700 [facility]
[2022-07-20] MEDS: WARFARIN 10 MG TAB PO SCH (18:38)
--- NOTE | 2022-07-20 18:51 | Consultation ---
History of Present Illness - Reason for Consult Consult date: 07/20/22 - History of Present Illness 87-year-old man past medical history hypertension, mechanical valve replacement, pacemaker in place, CAD presented to hospital complaining of chest pain. This began approximately 3 to 4 hours prior to admission. It was associated with nausea, vomiting, shortness of breath. He already has a PICC line in place for unclear reasons. Of note his pacemaker was recently placed approximately 2 w eeks ago. He nursing has noted purulent discharge come from pacemaker pocket. Afebrile since admission with a white count of 4.4. Currently on vancomycin. Blood cultures no growth so far. CT angio chest: Mild interstitial edema Review of Systems: Bold if positive, otherwise negative General: fevers, chills, rigors HEENT: visual disturbance, diplopia, eye pain Respiratory: cough, sputum, hemoptysis, shortness of breath Cardiovascular: chest pain, syncope Gastrointestinal: nausea, vomiting, diarrhea, abdominal pain Genitourinary: dysuria, hematuria, flank pain Musculoskeletal: neck pain, back pain, joint pain, edema Neurologic: headaches, seizures Hematologic: easy bruising or bleeding Endocrine: night sweats, acute weight loss Skin: rash, jaundice, redness Psychiatric: suicidal, homicidal ideation Past History Past Medical History: anemia, CAD, DVT, heart failure, hypertension, pulmonary embolism, other ( Ascending aorta aneurysm,mechanical valve replacement ,defibrilator,pacemaker,3 cardiac stents ,home oxygen ,dvt ,pe) Past Surgical History: valve replacement, CABG, Other (IVC Filter, coronary artery bypass graft and mechanical aortic valve replacement) Family history: no significant family history Medications and Allergies Allergies Allergy/AdvReac Type Severity Reaction Status Date / Time fentanyl Allergy Anaphylaxis Verified 07/18/22 10:31 Iodinated Contrast Media Allergy Anaphylaxis Verified 07/15/22 14:02 shellfish derived Allergy Anaphylaxis Verified 07/18/22 10:31 Home Medications Medication Instructions Recorded Confirmed Last Taken Type Atorvastatin [Lipitor Tab] 80 mg PO DAILY 07/16/22 07/16/22 07/15/22 History Enoxaparin Sodium [Lovenox] 80 mg SUB-Q BID 07/16/22 07/16/22 07/15/22 History Sertraline [Zoloft] 100 mg PO QDAY 07/16/22 07/16/22 07/15/22 History Warfarin [Coumadin] 10 mg PO QDAY 07/16/22 07/16/22 07/14/22 History carvediloL [Coreg] 12.5 mg PO DAILY 07/16/22 07/16/22 07/15/22 History lamoTRIgine [LaMICtal] 100 mg PO BID 07/16/22 07/16/22 07/15/22 History levETIRAcetam [Keppra TAB] 1,000 mg PO BID 07/16/22 07/16/22 07/15/22 History traZODone [Desyrel] 100 mg PO QHS 07/16/22 07/16/22 07/14/22 History Active Meds: Active Medications Acetaminophen (Acetaminophen 325 Mg Tab) 650 mg PO Q4H PRN PRN Reason: Pain MILD(1-3)/Fever >100.5/GRIER Aspirin (Aspirin Ec 325 Mg Tab) 325 mg PO QDAY [facility] Last Admin: 07/20/22 10:09 Dose: 325 mg Atorvastatin Calcium (Atorvastatin 40 Mg Tab) 80 mg PO DAILY [facility] Last Admin: 07/20/22 10:09 Dose: 80 mg Carvedilol (Carvedilol 12.5 Mg Tab) 12.5 mg PO DAILY@0800 [facility] Last Admin: 07/20/22 10:09 Dose: 12.5 mg Vancomycin HCl (Vancomycin/Ns 1 Gm/250 Ml) 1 gm in 250 mls @ 166.667 mls/hr IV Q12H [facility] Last Admin: 07/20/22 13:52 Dose: 166.667 mls/hr Heparin Sodium/Sodium Chloride (Heparin/ 0.45% Nacl-25,000 Unit/500 Ml) 25,000 unit in 500 mls @ 20 mls/hr IV TITRATE [facility]; Protocol Last Titration: 07/19/22 07:41 Dose: 1,000 units/hr, 20 mls/hr Lamotrigine (Lamotrigine 100 Mg Tab) 100 mg PO BID [facility] Last Admin: 07/20/22 10:09 Dose: 100 mg Levetiracetam (Levetiracetam 500 Mg Tab) 1,000 mg PO BID [facility] Last Admin: 07/20/22 10:09 Dose: 1,000 mg Lorazepam (Lorazepam 0.5 Mg Tab) 0.5 mg PO Q12H PRN PRN Reason: Agitation Last Admin: 07/16/22 12:09 Dose: 0.5 mg Magnesium Hydroxide (Magnesium Hydroxide (Mom) Oral Liqd Udc) 30 ml PO Q4H PRN PRN Reason: Constipation Morphine Sulfate (Morphine 2 Mg/1 Ml Inj) 2 mg IV Q4H PRN PRN Reason: Pain, Moderate (4-6) Last Admin: 07/20/22 18:39 Dose: 2 mg Morphine Sulfate (Morphine 4 Mg/1 Ml Inj) 4 mg IV Q4H PRN PRN Reason: Pain , Severe (7-10) Last Admin: 07/19/22 14:44 Dose: 4 mg Morphine Sulfate (Morphine 2 Mg/1 Ml Inj) 2 mg IV Q5MIN PRN PRN Reason: Chest Pain unrelieved by NTG Nitroglycerin (Nitroglycerin 0.4 Mg Tab Subl) 0.4 mg SL Q5M PRN PRN Reason: Chest Pain Ondansetron HCl (Ondansetron 4 Mg/2 Ml Inj) 4 mg IV Q8H PRN PRN Reason: Nausea And Vomiting Povidone Iodine (Povidone-Iodine Ointment 28.35 Gm) 1 applic TP BID [facility] Last Admin: 07/20/22 13:52 Dose: 1 applic Sertraline HCl (Sertraline 100 Mg Tab) 100 mg PO QDAY [facility] Last Admin: 07/20/22 10:09 Dose: 100 mg Sodium Chloride (Sodium Chloride 0.9% 10 Ml Flush Syringe) 10 ml IV BID [facility] Last Admin: 07/20/22 10:09 Dose: 10 ml Sodium Chloride (Sodium Chloride 0.9% 10 Ml Flush Syringe) 10 ml IV PRN PRN PRN Reason: LINE FLUSH Tramadol HCl (Tramadol 50 Mg Tab) 50 mg PO Q6H PRN PRN Reason: Pain, Moderate (4-6) Trazodone HCl (Trazodone 100 Mg Tab) 100 mg PO QHS [facility] Last Admin: 07/19/22 22:34 Dose: 100 mg Warfarin Sodium (Warfarin 10 Mg Tab) 10 mg PO DAILY@1700 [facility] Last Admin: 07/20/22 18:38 Dose: 10 mg Physical Examination - Physical Exam Narrative exam: Physical Exam: Constitutional: Alert, cooperative. No acute distress Head, Ears, Nose: Normocephalic, atraumatic. External ears, nose normal Eyes: Conjunctivae/corneas clear. No icterus. No ptosis. Neck: Supple, no meningeal signs Oral: dentition fair, no thrush Cardiovascular: S1, S2 normal. Respiratory: Good air entry, clear to auscultation bilaterally GI: Soft, non-tender; bowel sounds normal. No peritoneal signs. Musculoskeletal: Pacemaker incision site improving Skin: No rash or abscess Hem/Lymphatic: No palpable cervical or supraclavicular nodes. No lymphangitis Psych: Mood ok. Affect normal Neurological: Awake, alert, oriented. No gross abnormality - Constitutional Vitals: Vital Signs Temp Pulse Resp BP Pulse Ox 97.9 F 80 18 101/50 95 07/20/22 16:28 07/20/22 16:28 07/20/22 16:28 07/20/22 16:28 07/20/22 16:28 Temperature -Last 24 Hours Temperature 97.9 F Temperature 98.3 F Temperature 98.1 F Temperature 99.3 F Temperature 99 F Results - Labs CBC & Chem 7: 07/20/22 04:00 07/20/22 04:00 Labs: Abnormal lab results 07/20/22 07/20/22 Range/Units 04:00 04:00 WBC 3.0 L (4.5-11.0) K/mm3 RBC 2.97 L (3.65-5.03) M/mm3 Hgb 7.9 L (11.8-15.2) gm/dl Hct 24.7 L (35.5-45.6) % MCV 83 L (84-94) fl MCH 27 L (28-32) pg RDW 23.8 H (13.2-15.2) % Plt Count 106 L (140-440) K/mm3 Lymph % (Auto) 11.5 L (13.4-35.0) % [place] % (Auto) 11.0 H (0.0-7.3) % Lymph # (Auto) 0.3 L (1.2-5.4) K/mm3 Seg Neutrophils % 76.1 H (40.0-70.0) % Creatinine 0.7 L (0.8-1.3) mg/dL Glucose 216 H (75-100) mg/dL Calcium 7.6 L (8.4-10.2) mg/dL Assessment and Plan Cultures: Blood culture no growth so far A/P: 87-year-old man past medical history hypertension, mechanical valve replacement, pacemaker in place, CAD #Pacemaker incision site cellulitis: Infection doesn't appear to extend too deep. Blood cultures negative. Recs: -Continue vancomycin goal trough 10-20 -If continued improvement can DC home with IV vs PO antibiotics, Thank you for the consult, we will continue to follow. Renaldo Peña MD [facility] O: [phone] F: [phone]
[2022-07-20] MEDS: MORPHINE 4 MG/1 ML INJ IV PRN (22:18)
[2022-07-20] MEDS: traZODone 100 MG TAB PO SCH (22:20)
[2022-07-21] MEDS: POVIDONE-IODINE OINTMENT 28.35 GM TP SCH ×3 (00:25→21:15)
[2022-07-21] MEDS: MORPHINE 4 MG/1 ML INJ IV PRN ×5 (03:48→21:58)
[2022-07-21] MEDS: levETIRAcetam 500 MG TAB PO SCH ×2 (09:55→22:01)
[2022-07-21] MEDS: lamoTRIgine 100 MG TAB PO SCH ×2 (09:55→22:00)
[2022-07-21] MEDS: ASPIRIN EC 325 MG TAB PO SCH (09:55)
[2022-07-21] MEDS: carvediloL 12.5 MG TAB PO SCH (09:55)
[2022-07-21] MEDS: SERTRALINE 100 MG TAB PO SCH (09:55)
--- NOTE | 2022-07-21 10:59 | Progress Note ---
Assessment and Plan Assessment and plan: 87-year-old male with known history of hypertension, ascending aortic aneurysm, mechanical valve replacement, defibrillator, coronary artery disease with cardiac stent placement in the past, DVTPE with IVC filter placement presenting to the emergency room today for chest pain. Chest x-ray showed no acute findings. Chest CTA showed mild cardiomegaly with mild interstitial edema. No evidence of aneurysm/dissection involving the aortic arch or descending thoracic aorta. The patient was admitted with diagnoses below: #Pacemaker pocket infection #Hypertension #Dual-chamber pacemaker inserted 2 weeks ago in [place] ([employer] per patient) #Coronary artery disease status post coronary artery bypass grafting in 2013. Cath reportedly performed 1 year ago in [place] revealing occlusion of the bypass graft. 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 Cardiology following. Continue Lovenox 80 mg twice daily. Hold warfarin in case of invasive cardiac evaluation per cardiology. Obtain all records from [place]. Device interrogation is pending. Obtain blood cultures (device site is erythematous with clear drainage, surgical pablo were removed this morning). Negative troponin x2. No ischemic EKG changes 07/17/2022. Continue Lovenox 80 mg twice daily. Obtain all records from [place]. Device interrogation is pending. Obtain blood cultures (device site is devora thematous with clear drainage, surgical pablo were removed yesterday morning). We will start empiric antibiotics of vancomycin for chest wall cellulitis. Consider ID consultation. Negative troponin x2. No ischemic EKG changes 07/18/2022. Replete potassium. Cardiology considering invasive ischemic evaluation. Continue Lovenox 80 mg twice daily. Subtherapeutic INR for mechanical valve. Obtain all records from [place]. Device interrogation is pending. Obtain blood cultures (device site is erythematous with clear drainage, surgical pablo were removed yesterday morning). Continue vancomycin for chest wall cellulitis. Consider ID consultation. Negative troponin x2. No ischemic EKG changes 07/19/2022. Infectious disease consulted for further recommendations regarding possible pacemaker pocket infection (pacemaker placed approximately 2 weeks ago and [place]). Continue vancomycin. Blood cultures unremarkable x2; however, patient and nursing endorse purulent discharge from pacemaker pocket. Continue heparin ip while determining if pacemaker will need to be removed. Patient will be discharged home on warfarin when medically cleared. 07/20/2022. Cardiology starting warfarin 10 mg daily. Continue heparin for bridging. Continue vancomycin; blood cultures unremarkable x72 hours. Pending final oral antibiotics by Infectious Disease. 07/21/2022. Continue warfarin 10 mg daily. Pending INR (goal 2.53.5). Continue vancomycin administration. Pending final oral antibiotic decision by infectious disease. If IV antibiotics are required, this will be set up with ca se management as soon as possible. Disposition Plan: Continue medical management Total Time Spent with Patient (Minutes): 45 mins History Interval history: No acute events overnight. Hospitalist Physical - Constitutional Vitals: Temp Pulse Resp BP Pulse Ox 98.4 F 98 H 16 138/69 95 07/21/22 03:38 07/21/22 03:38 07/21/22 03:38 07/21/22 03:38 07/21/22 03:38 General appearance: Present: no acute distress, well-nourished, other (Pacemaker in upper left chest with purulent discharge oozing from pacemaker pocket) - EENT Eyes: Present: PERRL, EOM intact ENT: hearing intact, clear oral mucosa, dentition normal - Neck Neck: Present: supple, normal ROM - Respiratory Respiratory effort: normal Respiratory: bilateral: CTA - Cardiovascular Rhythm: irregularly irregular Heart Sounds: Present: S1 & S2 - Extremities Extremities: no ischemia, pulses intact, pulses symmetrical, No edema, normal temperature, normal color Peripheral Pulses: within normal limits - Abdominal General gastrointestinal: soft, non-tender, non-distended, normal bowel sounds - Integumentary Integumentary: Present: clear, warm, dry - Psychiatric Psychiatric: appropriate mood/affect, intact judgment & insight, memory intact, cooperative - Neurologic Neurologic: CNII-XII intact, moves all extremities - Allied Health Allied health notes reviewed: nursing, case management HEART Score - HEART Score EKG: Non-specific Age: 45-65 Risk factors: > 3 risk factors or hx of atherosclerotic disease Troponin: Troponin T < 0.010 ng/mL (0.00-0.029) 07/16/22 10:09 Troponin: < normal limit Results - Labs CBC & Chem 7: 07/20/22 04:00 07/20/22 04:00 Labs: Laboratory Last Values WBC 3.0 K/mm3 (4.5-11.0) L 07/20/22 04:00 RBC 2.97 M/mm3 (3.65-5.03) L 07/20/22 04:00 Hgb 7.9 gm/dl (11.8-15.2) L 07/20/22 04:00 Hct 24.7 % (35.5-45.6) L 07/20/22 04:00 MCV 83 fl (84-94) L 07/20/22 04:00 MCH 27 pg (28-32) L 07/20/22 04:00 MCHC 32 % (32-34) 07/20/22 04:00 RDW 23.8 % (13.2-15.2) H 07/20/22 04:00 Plt Count 106 K/mm3 (140-440) L 07/20/22 04:00 Lymph % (Auto) 11.5 % (13.4-35.0) L 07/20/22 04:00 Emery % (Auto) 11.0 % (0.0-7.3) H 07/20/22 04:00 Eos % (Auto) 0.9 % (0.0-4.3) 07/20/22 04:00 Baso % (Auto) 0.5 % (0.0-1.8) 07/20/22 04:00 Lymph # (Auto) 0.3 K/mm3 (1.2-5.4) L 07/20/22 04:00 Emery # (Auto) 0.3 K/mm3 (0.0-0.8) 07/20/22 04:00 Eos # (Auto) 0.0 K/mm3 (0.0-0.4) 07/20/22 04:00 Baso # (Auto) 0.0 K/mm3 (0.0-0.1) 07/20/22 04:00 Add Manual Diff Complete 07/19/22 04:00 Total Counted 100 07/19/22 04:00 Seg Neutrophils % 76.1 % (40.0-70.0) H 07/20/22 04:00 Seg Neuts % (Manual) 79.0 % (40.0-70.0) H 07/19/22 04:00 Band Neutrophils % 3.0 % 07/19/22 04:00 Lymphocytes % (Manual) 11.0 % (13.4-35.0) L 07/19/22 04:00 Reactive Lymphs % (Man) 0 % 07/19/22 04:00 Monocytes % (Manual) 5.0 % (0.0-7.3) 07/19/22 04:00 Eosinophils % (Manual) 2.0 % (0.0-4.3) 07/19/22 04:00 Basophils % (Manual) 0 % (0.0-1.8) 07/19/22 04:00 Metamyelocytes % 0 % 07/19/22 04:00 Myelocytes % 0 % 07/19/22 04:00 Promyelocytes % 0 % 07/19/22 04:00 Blast Cells % 0 % 07/19/22 04:00 Nucleated RBC % Not Reportable 07/19/22 04:00 Seg Neutrophils # 2.3 K/mm3 (1.8-7.7) 07/20/22 04:00 Seg Neutrophils # Man 3.5 K/mm3 (1.8-7.7) 07/19/22 04:00 Band Neutrophils # 0.1 K/mm3 07/19/22 04:00 Lymphocytes # (Manual) 0.5 K/mm3 (1.2-5.4) L 07/19/22 04:00 Abs React Lymphs (Man) 0.0 K/mm3 07/19/22 04:00 Monocytes # (Manual) 0.2 K/mm3 (0.0-0.8) 07/19/22 04:00 Eosinophils # (Manual) 0.1 K/mm3 (0.0-0.4) 07/19/22 04:00 Basophils # (Manual) 0.0 K/mm3 (0.0-0.1) 07/19/22 04:00 Metamyelocytes # 0.0 K/mm3 07/19/22 04:00 Myelocytes # 0.0 K/mm3 07/19/22 04:00 Promyelocytes # 0.0 K/mm3 07/19/22 04:00 Blast Cells # 0.0 K/mm3 07/19/22 04:00 WBC Morphology Not Reportable 07/19/22 04:00 Hypersegmented Neuts Not Reportable 07/19/22 04:00 Hyposegmented Neuts Not Reportable 07/19/22 04:00 Hypogranular Neuts Not Reportable 07/19/22 04:00 Smudge Cells Not Reportable 07/19/22 04:00 Toxic Granulation Not Reportable 07/19/22 04:00 Toxic Vacuolation Not Reportable 07/19/22 04:00 Dohle Bodies Not Reportable 07/19/22 04:00 Pelger-Huet Anomaly Not Reportable 07/19/22 04:00 Bubba Rods Not Reportable 07/19/22 04:00 Platelet Estimate Consistent w auto 07/19/22 04:00 Clumped Platelets Not Reportable 07/19/22 04:00 Plt Clumps, EDTA Not Reportable 07/19/22 04:00 Large Platelets Not Reportable 07/19/22 04:00 Giant Platelets Not Reportable 07/19/22 04:00 Platelet Satelliting Not Reportable 07/19/22 04:00 Plt Morphology Comment Not Reportable 07/19/22 04:00 RBC Morphology Not Reportable 07/19/22 04:00 Dimorphic RBCs Not Reportable 07/19/22 04:00 Polychromasia Not Reportable 07/19/22 04:00 Hypochromasia Not Reportable 07/19/22 04:00 Poikilocytosis 1+ 07/19/22 04:00 Anisocytosis 2+ 07/19/22 04:00 Microcytosis Not Reportable 07/19/22 04:00 Macrocytosis Not Reportable 07/19/22 04:00 Spherocytes Not Reportable 07/19/22 04:00 Pappenheimer Bodies Not Reportable 07/19/22 04:00 Sickle Cells Not Reportable 07/19/22 04:00 Target Cells Not Reportable 07/19/22 04:00 Tear Drop Cells Few 07/19/22 04:00 Ovalocytes Few 07/19/22 04:00 Helmet Cells Not Reportable 07/19/22 04:00 [place] Bodies Not Reportable 07/19/22 04:00 [place] Rings Not Reportable 07/19/22 04:00 [place] Cells Not Reportable 07/19/22 04:00 Bite Cells Not Reportable 07/19/22 04:00 Crenated Cell Not Reportable 07/19/22 04:00 Elliptocytes Few 07/19/22 04:00 Acanthocytes (Spur) Not Reportable 07/19/22 04:00 Rouleaux Not Reportable 07/19/22 04:00 Hemoglobin C Crystals Not Reportable 07/19/22 04:00 Schistocytes Not Reportable 07/19/22 04:00 Malaria parasites Not Reportable 07/19/22 04:00 Indra Bodies Not Reportable 07/19/22 04:00 Hem Pathologist Commnt No 07/19/22 04:00 PT 12.1 Sec. (12.2-14.9) L 07/18/22 Unknown INR 0.82 (0.87-1.13) L 07/18/22 Unknown APTT 33.2 Sec. (24.2-36.6) 07/18/22 Unknown Heparin Anti-Xa Level 0.20 U.I./ml (0.3-0.7) L 07/19/22 05:00 Sodium 139 mmol/L (137-145) 07/20/22 04:00 Potassium 3.7 mmol/L (3.6-5.0) 07/20/22 04:00 Chloride 105.8 mmol/L (98-107) 07/20/22 04:00 Carbon Dioxide 22 mmol/L (22-30) 07/20/22 04:00 Anion Gap 15 mmol/L 07/20/22 04:00 BUN 9 mg/dL (9-20) 07/20/22 04:00 Creatinine 0.7 mg/dL (0.8-1.3) L 07/20/22 04:00 Estimated GFR > 60 ml/min 07/20/22 04:00 BUN/Creatinine Ratio 13 % 07/20/22 04:00 Glucose 216 mg/dL (75-100) H 07/20/22 04:00 Calcium 7.6 mg/dL (8.4-10.2) L 07/20/22 04:00 Iron 33 ug/dL (49-181) L 07/19/22 07:50 TIBC 205 mcg/dL (250-450) L 07/19/22 07:50 Total Bilirubin 0.30 mg/dL (0.1-1.2) 07/15/22 15:49 AST 9 units/L (5-40) 07/15/22 15:49 ALT 14 units/L (7-56) 07/15/22 15:49 Alkaline Phosphatase 83 units/L (35-129) 07/15/22 15:49 Troponin T < 0.010 ng/mL (0.00-0.029) 07/16/22 10:09 Total Protein 5.7 g/dL (6.3-8.2) L 07/15/22 15:49 Albumin 3.9 g/dL (3.9-5) 07/15/22 15:49 Albumin/Globulin Ratio 2.2 % 07/15/22 15:49 Microbiology: Microbiology 07/16/22 10:09 Peripheral/Venous Blood Culture - Preliminary NO GROWTH AFTER 4 DAYS 07/16/22 10:09 Peripheral/Venous Blood Culture - Preliminary NO GROWTH AFTER 4 DAYS Steward/IV: Voiding Method Toilet Active Medications - Current Medications Current Medications: Generic Name Dose Route Start Last Admin Trade Name Freq PRN Reason Stop Dose Admin Acetaminophen 650 mg 07/15/22 22:49 Acetaminophen 325 Mg Tab PO Q4H PRN Pain MILD(1-3)/Fever >100.5/GRIER Aspirin 325 mg 07/16/22 10:00 07/21/22 09:55 Aspirin Ec 325 Mg Tab PO 325 mg QDAY BROOK Administration Atorvastatin Calcium 80 mg 07/16/22 10:00 07/21/22 09:55 Atorvastatin 40 Mg Tab PO 80 mg DAILY BROOK Administration Carvedilol 12.5 mg 07/16/22 08:00 07/21/22 09:55 Carvedilol 12.5 Mg Tab PO 12.5 mg DAILY@0800 BROOK Administration Vancomycin HCl 1 gm in 250 mls @ 166.667 mls/hr 07/17/22 23:00 07/20/22 22:19 Vancomycin/Ns 1 Gm/250 Ml IV 166.667 mls/hr Q12H BROOK Administration Heparin Sodium/Sodium Chloride 25,000 unit in 500 mls @ 20 mls/hr 07/18/22 14:00 07/19/22 07:41 Heparin/ 0.45% Nacl-25,000 Unit/500 Ml IV 1,000 units/hr TITRATE BROOK 20 mls/hr Titration Protocol 1,000 UNITS/HR Lamotrigine 100 mg 07/16/22 10:00 07/21/22 09:55 Lamotrigine 100 Mg Tab PO 100 mg BID BROOK Administration Levetiracetam 1,000 mg 07/16/22 10:00 07/21/22 09:55 Levetiracetam 500 Mg Tab PO 1,000 mg BID BROOK Administration Lorazepam 0.5 mg 07/16/22 12:00 07/16/22 12:09 Lorazepam 0.5 Mg Tab PO 0.5 mg Q12H PRN Administration Agitation Magnesium Hydroxide 30 ml 07/15/22 22:49 Magnesium Hydroxide (Mom) Oral Liqd Udc PO Q4H PRN Constipation Morphine Sulfate 2 mg 07/15/22 22:49 07/20/22 18:39 Morphine 2 Mg/1 Ml Inj IV 2 mg Q4H PRN Administration Pain, Moderate (4-6) Morphine Sulfate 4 mg 07/15/22 22:49 07/21/22 09:56 Morphine 4 Mg/1 Ml Inj IV 4 mg Q4H PRN Administration Pain , Severe (7-10) Morphine Sulfate 2 mg 07/15/22 22:49 Morphine 2 Mg/1 Ml Inj IV Q5MIN PRN Chest Pain unrelieved by NTG Nitroglycerin 0.4 mg 07/15/22 22:49 Nitroglycerin 0.4 Mg Tab Subl SL Q5M PRN Chest Pain Ondansetron HCl 4 mg 07/15/22 22:49 Ondansetron 4 Mg/2 Ml Inj IV Q8H PRN Nausea And Vomiting Povidone Iodine 1 applic 07/18/22 22:00 07/21/22 09:56 Povidone-Iodine Ointment 28.35 Gm TP 1 applic BID BROOK Administration Sertraline HCl 100 mg 07/16/22 10:00 07/21/22 09:55 Sertraline 100 Mg Tab PO 100 mg QDAY BROOK Administration Sodium Chloride 10 ml 07/16/22 10:00 07/21/22 09:56 Sodium Chloride 0.9% 10 Ml Flush Syringe IV 10 ml BID BROOK Administration Sodium Chloride 10 ml 07/15/22 22:49 Sodium Chloride 0.9% 10 Ml Flush Syringe IV PRN PRN LINE FLUSH Tramadol HCl 50 mg 07/15/22 22:49 Tramadol 50 Mg Tab PO Q6H PRN Pain, Moderate (4-6) Trazodone HCl 100 mg 07/16/22 22:00 08/24/22 22:20 Trazodone 100 Mg Tab PO 100 mg QHS BROOK Administration Warfarin Sodium 10 mg 07/20/22 17:00 07/20/22 18:38 Warfarin 10 Mg Tab PO 10 mg DAILY@1700 BROOK Administration
[2022-07-21] MEDS ORDERED: ALTEPLASE 2 MG INJ IV SCH (13:00)
[2022-07-21] MEDS ORDERED: WATER FOR INJ Sterile (PF) 10 ML ONE (13:04)
--- NOTE | 2022-07-21 13:24 | Event Note ---
Date: 07/21/22 Patient was out of his room, off the floor at the time of my visit. He is reported by the nursing staff to be noncompliant with instructions to maintain his intravenous heparin therapy, and routinely disconnects his IV infusion, leaves the floor to an unknown destination, returning 1 to 2 hours later. Based on his noncompliance with heparin, he can be switched to subcutaneous Lovenox 1 mg/kg every 12 hours as an alternative bridge to therapeutic warfarin. Following a switch to subcutaneous Lovenox, he can be managed as an outpatient with respect to his anticoagulation status. Patient is therefore stable for cardiac discharge either to a alf facility or home, on Lovenox and heparin, with instructions for outpatient INR monitoring, and to discontinue Lovenox when INR is above 2.0-2.5.
[2022-07-21] MEDS: ENOXAPARIN 100 MG/1 ML INJ SUB-Q SCH ×2 (14:13→22:01)
[2022-07-21] MEDS: VANCOMYCIN/NS 1 GM/250 ML 1 GM/250 ML BAG IV SCH ×2 (16:38→23:17)
[2022-07-21 16:52] LABS: Blood Urea Nitrogen 9 mg/dL (9-20); Calcium 8.1 mg/dL (8.4-10.2); Hemolysis Index 2
[2022-07-21 17:06] LABS: BUN/Creatinine Ratio 13
[2022-07-21 17:24] LABS: INR 0.97 (0.87-1.13)
--- NOTE | 2022-07-21 18:02 | Progress Note ---
Assessment and Plan Cultures: Blood culture no growth so far A/P: 87-year-old man past medical history hypertension, mechanical valve replacement, pacemaker in place, CAD #Pacemaker incision site cellulitis: Infection doesn't appear to extend too deep. Blood cultures negative. Recs: -Continue vancomycin goal trough 10-20 -Okay to discharge on Bactrim DS every 12 hours for 14 days as he is generally noncompliant with IV therapy even while in the hospital Thank you for the consult, we will continue to follow. Renaldo Peña MD [facility] O: [phone] F: [phone] Subjective Date of service: 07/21/22 Principal diagnosis: Chest pain Interval history: Afebrile, white count low at 3. Blood cultures remain negative. Objective - Exam Narrative Exam: Physical Exam: Constitutional: Alert, cooperative. No acute distress Head, Ears, Nose: Normocephalic, atraumatic. External ears, nose normal Eyes: Conjunctivae/corneas clear. No icterus. No ptosis. Neck: Supple, no meningeal signs Oral: dentition fair, no thrush Cardiovascular: S1, S2 normal. Respiratory: Good air entry, clear to auscultation bilaterally GI: Soft, non-tender; bowel sounds normal. No peritoneal signs. Musculoskeletal: Pacemaker incision site improving Skin: No rash or abscess Hem/Lymphatic: No palpable cervical or supraclavicular nodes. No lymphangitis Psych: Mood ok. Affect normal Neurological: Awake, alert, oriented. No gross abnormality - Constitutional Vitals: Vital Signs Temp Pulse Resp BP Pulse Ox 98.4 F 98 H 16 138/69 95 07/21/22 03:38 07/21/22 03:38 07/21/22 03:38 07/21/22 03:38 07/21/22 03:38 Temperature -Last 24 Hours Temperature 98.4 F Temperature 97.7 F - Labs CBC & Chem 7: 07/20/22 04:00 07/21/22 04:00 Labs: Abnormal lab results 07/21/22 Range/Units 04:00 Chloride 107.2 H (98-107) mmol/L Carbon Dioxide 21 L (22-30) mmol/L Creatinine 0.7 L (0.8-1.3) mg/dL Glucose 143 H (75-100) mg/dL Calcium 8.1 L (8.4-10.2) mg/dL
[2022-07-21] MEDS: WARFARIN 10 MG TAB PO SCH (18:36)
[2022-07-21] MEDS: traZODone 100 MG TAB PO SCH (22:00)
[2022-07-22] MEDS: MORPHINE 4 MG/1 ML INJ IV PRN ×6 (01:45→21:52)
[2022-07-22 06:07] LABS: Hematocrit 24.8 % (35.5-45.6); Hemoglobin 8.1 gm/dl (11.8-15.2)
[2022-07-22 06:17] LABS: INR 0.97 (0.87-1.13)
[2022-07-22 06:48] LABS: Blood Urea Nitrogen 7 mg/dL (9-20); Hemolysis Index 4
[2022-07-22 06:50] LABS: BUN/Creatinine Ratio 10
--- NOTE | 2022-07-22 09:09 | Progress Note ---
Assessment and Plan - Patient Problems (1) History of mechanical aortic valve replacement Current Visit: Yes Status: Acute Plan to address problem: The patient presented with subtherapeutic INR of 0.9, despite professed compliance with warfarin at 10 mg daily. Restarted warfarin 10 mg daily, goal of INR is 2.5-3.5. Patient advised to maintain bridge Lovenox therapy until therapeutic. (2) Infection of pacemaker pulse generator site Current Visit: Yes Status: Acute Plan to address problem: At this time, he will be recommended for continued antibiotic therapy per ID recommendations, and continued wound care. Ultimate plan is for outpatient management with subcutaneous Lovenox as a bridge to therapeutic warfarin levels. (3) Chest pain Current Visit: Yes Status: Acute Plan to address problem: Patient's chest pain is atypical, ECGs and troponin levels are unremarkable. Continue guideline directed medical therapy for coronary artery disease and chronic stable angina. Subjective Date of service: 07/22/22 Principal diagnosis: Chest pain Interval history: The patient is comfortable, asymptomatic cardiac status. Objective Vital Signs Temp Pulse Pulse Resp Resp BP Pulse Ox 07/22/22 07:22 97.8 F 95 H 17 135/55 99 07/22/22 05:45 18 07/22/22 01:45 16 07/21/22 22:00 21 07/21/22 21:58 21 07/21/22 21:00 87 18 100 07/21/22 20:00 87 07/21/22 19:11 98.3 F 88 16 146/63 100 07/21/22 11:38 97.3 F L 87 18 142/59 95 - Physical Examination General: No Apparent Distress HEENT: Positive: PERRL Neck: Positive: neck supple Cardiac: Positive: Reg Rate and Rhythm Lungs: Positive: Decreased Breath Sounds Neuro: Positive: Grossly Intact Abdomen: Positive: Soft Skin: Positive: Other (Left chest PPM site evaluated. Erythema surrounding incision. Scant drainage from staple sites. No fluctuance in pocket.) Extremities: Absent: edema - Labs and Meds Coagulation 07/21/22 07/22/22 Range/Units 04:00 04:00 PT 14.0 13.9 (12.2-14.9) Sec. INR 0.97 0.97 (0.87-1.13) CBC 07/22/22 Range/Units 04:00 Hgb 8.1 L (11.8-15.2) gm/dl Hct 24.8 L (35.5-45.6) % Plt Count 131 L (140-440) K/mm3 Comprehensive Metabolic Panel 07/21/22 07/22/22 Range/Units 04:00 Unknown Sodium 140 138 (137-145) mmol/L Potassium 3.8 3.7 (3.6-5.0) mmol/L Chloride 107.2 H 106.6 (98-107) mmol/L Carbon Dioxide 21 L 24 (22-30) mmol/L BUN 9 7 L (9-20) mg/dL Creatinine 0.7 L 0.7 L (0.8-1.3) mg/dL Glucose 143 H 130 H (75-100) mg/dL Calcium 8.1 L 8.0 L (8.4-10.2) mg/dL
[2022-07-22] MEDS: ENOXAPARIN 100 MG/1 ML INJ SUB-Q SCH ×2 (09:54→21:43)
[2022-07-22] MEDS: SERTRALINE 100 MG TAB PO SCH (09:55)
[2022-07-22] MEDS: lamoTRIgine 100 MG TAB PO SCH ×2 (09:55→21:50)
[2022-07-22] MEDS: levETIRAcetam 500 MG TAB PO SCH ×2 (09:56→21:47)
[2022-07-22] MEDS: ASPIRIN EC 325 MG TAB PO SCH (09:56)
[2022-07-22] MEDS: carvediloL 12.5 MG TAB PO SCH (09:56)
[2022-07-22] MEDS: POVIDONE-IODINE OINTMENT 28.35 GM TP SCH ×2 (09:56→21:48)
[2022-07-22] MEDS: METOCLOPRAMIDE 10 MG TAB PO SCH ×3 (11:27→21:47)
[2022-07-22] MEDS: VANCOMYCIN/NS 1 GM/250 ML 1 GM/250 ML BAG IV SCH (11:27)
--- NOTE | 2022-07-22 15:00 | Progress Note ---
Assessment and Plan Assessment and plan: 87-year-old male with known history of hypertension, ascending aortic aneurysm, mechanical valve replacement, defibrillator, coronary artery disease with cardiac stent placement in the past, DVTPE with IVC filter placement presenting to the emergency room today for chest pain. Chest x-ray showed no acute findings. Chest CTA showed mild cardiomegaly with mild interstitial edema. No evidence of aneurysm/dissection involving the aortic arch or descending thoracic aorta. The patient was admitted with diagnoses below: #Pacemaker pocket infection (present on admission) #Hypertension #Dual-chamber pacemaker inserted 2 weeks ago in [place] ([place] per patient) #Coronary artery disease status post coronary artery bypass grafting in 2013. Cath reportedly performed 1 year ago in [place] revealing occlusion of the bypass graft. 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 Cardiology following. Continue Lovenox 80 mg twice daily. Hold warfarin in case of invasive cardiac evaluation per cardiology. Obtain all records from [place]. Device interrogation is pending. Obtain blood cultures (device site is erythematous with clear drainage, surgical pablo were removed this morning). Negative troponin x2. No ischemic EKG changes 07/17/2022. Continue Lovenox 80 mg twice daily. Obtain all records from [place]. Device interrogation is pending. Obtain blood cultures (device site is erythematous with clear drainage, surgical pablo were removed yesterday nahid jama). We will start empiric antibiotics of vancomycin for chest wall cellulitis. Consider ID consultation. Negative troponin x2. No ischemic EKG changes 07/18/2022. Replete potassium. Cardiology considering invasive ischemic evaluation. Continue Lovenox 80 mg twice daily. Subtherapeutic INR for mechanical valve. Obtain all records from [place]. Device interrogation is pending. Obtain blood cultures (device site is erythematous with clear drainage, surgical pablo were removed yesterday morning). Continue vancomycin for chest wall cellulitis. Consider ID consultation. Negative troponin x2. No ischemic EKG changes 07/19/2022. Infectious disease consulted for further recommendations regarding possible pacemaker pocket infection (pacemaker placed approximately 2 weeks ago and [place]). Continue vancomycin. Blood cultures unremarkable x2; however, patient and nursing endorse purulent discharge from pacemaker pocket. Continue heparin drip while determining if pacemaker will need to be removed. Patient will be discharged home on warfarin when medically cleared. 07/20/2022. Cardiology starting warfarin 10 mg daily. Continue heparin for bridging. Continue vancomycin; blood cultures unremarkable x72 hours. Pending final oral antibiotics by Infectious Disease. 07/21/2022. Continue warfarin 10 mg daily. Pending INR (goal 2.53.5). Continue vancomycin administration. Pending final oral antibiotic decision by infectious disease. If IV antibiotics are required, this will be set up with case management as soon as possible. 07/22/2022. Continue warfarin 10 mg daily. Current INR 0.97 (goal 2.53.5). Vancomycin discontinued. Starting doxycycline 100 mg twice daily x14 days (completes on August 05). Patient will be medically clear for discharge once INR goal is reached. Disposition Plan: Continue medical management Total Time Spent with Patient (Minutes): 45 minutes History Interval history: No acute events overnight. Hospitalist Physical - Constitutional Vitals: Temp Pulse Resp BP Pulse Ox 97.8 F 95 H 17 135/55 99 07/22/22 07:22 07/22/22 07:22 07/22/22 07:22 07/22/22 07:22 07/22/22 07:22 General appearance: Present: no acute distress, well-nourished, other (Pacemaker in upper left chest with purulent discharge oozing from pacemaker pocket) - EENT Eyes: Present: PERRL, EOM intact ENT: hearing intact, clear oral mucosa, dentition normal - Neck Neck: Present: supple, normal ROM - Respiratory Respiratory effort: normal Respiratory: bilateral: CTA - Cardiovascular Rhythm: regular Heart Sounds: Present: S1 & S2 - Extremities Extremities: no ischemia, pulses intact, pulses symmetrical, No edema, normal temperature, normal color Peripheral Pulses: within normal limits - Abdominal General gastrointestinal: soft, non-tender, non-distended, normal bowel sounds - Integumentary Integumentary: Present: clear, warm, dry - Psychiatric Psychiatric: appropriate mood/affect, intact judgment & insight, memory intact, cooperative - Neurologic Neurologic: CNII-XII intact, moves all extremities - Allied Health Allied health notes reviewed: nursing HEART Score - HEART Score EKG: Non-specific Age: 45-65 Risk factors: > 3 risk factors or hx of atherosclerotic disease Troponin: Troponin T < 0.010 ng/mL (0.00-0.029) 07/16/22 10:09 Troponin: < normal limit Results - Labs CBC & Chem 7: 07/22/22 04:00 07/22/22 Unknown Labs: Laboratory Last Values WBC 3.0 K/mm3 (4.5-11.0) L 07/20/22 04:00 RBC 2.97 M/mm3 (3.65-5.03) L 07/20/22 04:00 Hgb 8.1 gm/dl (11.8-15.2) L 07/22/22 04:00 Hct 24.8 % (35.5-45.6) L 07/22/22 04:00 MCV 83 fl (84-94) L 07/20/22 04:00 MCH 27 pg (28-32) L 07/20/22 04:00 MCHC 32 % (32-34) 07/20/22 04:00 RDW 23.8 % (13.2-15.2) H 07/20/22 04:00 Plt Count 131 K/mm3 (140-440) L 07/22/22 04:00 Lymph % (Auto) 11.5 % (13.4-35.0) L 07/20/22 04:00 Mclean % (Auto) 11.0 % (0.0-7.3) H 07/20/22 04:00 Eos % (Auto) 0.9 % (0.0-4.3) 07/20/22 04:00 Baso % (Auto) 0.5 % (0.0-1.8) 07/20/22 04:00 Lymph # (Auto) 0.3 K/mm3 (1.2-5.4) L 07/20/22 04:00 Mclean # (Auto) 0.3 K/mm3 (0.0-0.8) 07/20/22 04:00 Eos # (Auto) 0.0 K/mm3 (0.0-0.4) 07/20/22 04:00 Baso # (Auto) 0.0 K/mm3 (0.0-0.1) 07/20/22 04:00 Add Manual Diff Complete 07/19/22 04:00 Total Counted 100 07/19/22 04:00 Seg Neutrophils % 76.1 % (40.0-70.0) H 07/20/22 04:00 Seg Neuts % (Manual) 79.0 % (40.0-70.0) H 07/19/22 04:00 Band Neutrophils % 3.0 % 07/19/22 04:00 Lymphocytes % (Manual) 11.0 % (13.4-35.0) L 07/19/22 04:00 Reactive Lymphs % (Man) 0 % 07/19/22 04:00 Monocytes % (Manual) 5.0 % (0.0-7.3) 07/19/22 04:00 Eosinophils % (Manual) 2.0 % (0.0-4.3) 07/19/22 04:00 Basophils % (Manual) 0 % (0.0-1.8) 07/19/22 04:00 Metamyelocytes % 0 % 07/19/22 04:00 Myelocytes % 0 % 07/19/22 04:00 Promyelocytes % 0 % 07/19/22 04:00 Blast Cells % 0 % 07/19/22 04:00 Nucleated RBC % Not Reportable 07/19/22 04:00 Seg Neutrophils # 2.3 K/mm3 (1.8-7.7) 07/20/22 04:00 Seg Neutrophils # Man 3.5 K/mm3 (1.8-7.7) 07/19/22 04:00 Band Neutrophils # 0.1 K/mm3 07/19/22 04:00 Lymphocytes # (Manual) 0.5 K/mm3 (1.2-5.4) L 07/19/22 04:00 Abs React Lymphs (Man) 0.0 K/mm3 07/19/22 04:00 Monocytes # (Manual) 0.2 K/mm3 (0.0-0.8) 07/19/22 04:00 Eosinophils # (Manual) 0.1 K/mm3 (0.0-0.4) 07/19/22 04:00 Basophils # (Manual) 0.0 K/mm3 (0.0-0.1) 07/19/22 04:00 Metamyelocytes # 0.0 K/mm3 07/19/22 04:00 Myelocytes # 0.0 K/mm3 07/19/22 04:00 Promyelocytes # 0.0 K/mm3 07/19/22 04:00 Blast Cells # 0.0 K/mm3 07/19/22 04:00 WBC Morphology Not Reportable 07/19/22 04:00 Hypersegmented Neuts Not Reportable 07/19/22 04:00 Hyposegmented Neuts Not Reportable 07/19/22 04:00 Hypogranular Neuts Not Reportable 07/19/22 04:00 Smudge Cells Not Reportable 07/19/22 04:00 Toxic Granulation Not Reportable 07/19/22 04:00 Toxic Vacuolation Not Reportable 07/19/22 04:00 Dohle Bodies Not Reportable 07/19/22 04:00 Pelger-Huet Anomaly Not Reportable 07/19/22 04:00 Bubba Rods Not Reportable 07/19/22 04:00 Platelet Estimate Consistent w auto 07/19/22 04:00 Clumped Platelets Not Reportable 07/19/22 04:00 Plt Clumps, EDTA Not Reportable 07/19/22 04:00 Large Platelets Not Reportable 07/19/22 04:00 Giant Platelets Not Reportable 07/19/22 04:00 Platelet Satelliting Not Reportable 07/19/22 04:00 Plt Morphology Comment Not Reportable 07/19/22 04:00 RBC Morphology Not Reportable 07/19/22 04:00 Dimorphic RBCs Not Reportable 07/19/22 04:00 Polychromasia Not Reportable 07/19/22 04:00 Hypochromasia Not Reportable 07/19/22 04:00 Poikilocytosis 1+ 07/19/22 04:00 Anisocytosis 2+ 07/19/22 04:00 Microcytosis Not Reportable 07/19/22 04:00 Macrocytosis Not Reportable 07/19/22 04:00 Spherocytes Not Reportable 07/19/22 04:00 Pappenheimer Bodies Not Reportable 07/19/22 04:00 Sickle Cells Not Reportable 07/19/22 04:00 Target Cells Not Reportable 07/19/22 04:00 Tear Drop Cells Few 07/19/22 04:00 Ovalocytes Few 07/19/22 04:00 Helmet Cells Not Reportable 07/19/22 04:00 Licea-Daisy Bodies Not Reportable 07/19/22 04:00 [place] Rings Not Reportable 07/19/22 04:00 [place] Cells Not Reportable 07/19/22 04:00 Bite Cells Not Reportable 07/19/22 04:00 Crenated Cell Not Reportable 07/19/22 04:00 Elliptocytes Few 07/19/22 04:00 Acanthocytes (Spur) Not Reportable 07/19/22 04:00 Rouleaux Not Reportable 07/19/22 04:00 Hemoglobin C Crystals Not Reportable 07/19/22 04:00 Schistocytes Not Reportable 07/19/22 04:00 Malaria parasites Not Reportable 07/19/22 04:00 Indra Bodies Not Reportable 07/19/22 04:00 Hem Pathologist Commnt No 07/19/22 04:00 PT 13.9 Sec. (12.2-14.9) 07/22/22 04:00 INR 0.97 (0.87-1.13) 07/22/22 04:00 APTT 33.2 Sec. (24.2-36.6) 07/18/22 Unknown Heparin Anti-Xa Level 0.20 U.I./ml (0.3-0.7) L 07/19/22 05:00 Sodium 138 mmol/L (137-145) 07/22/22 Unknown Potassium 3.7 mmol/L (3.6-5.0) 07/22/22 Unknown Chloride 106.6 mmol/L (98-107) 07/22/22 Unknown Carbon Dioxide 24 mmol/L (22-30) 07/22/22 Unknown Anion Gap 11 mmol/L 07/22/22 Unknown BUN 7 mg/dL (9-20) L 07/22/22 Unknown Creatinine 0.7 mg/dL (0.8-1.3) L 07/22/22 Unknown Estimated GFR > 60 ml/min 07/22/22 Unknown BUN/Creatinine Ratio 10 % 07/22/22 Unknown Glucose 130 mg/dL (75-100) H 07/22/22 Unknown Calcium 8.0 mg/dL (8.4-10.2) L 07/22/22 Unknown Iron 33 ug/dL (49-181) L 07/19/22 07:50 TIBC 205 mcg/dL (250-450) L 07/19/22 07:50 Total Bilirubin 0.30 mg/dL (0.1-1.2) 07/15/22 15:49 AST 9 units/L (5-40) 07/15/22 15:49 ALT 14 units/L (7-56) 07/15/22 15:49 Alkaline Phosphatase 83 units/L (35-129) 07/15/22 15:49 Troponin T < 0.010 ng/mL (0.00-0.029) 07/16/22 10:09 Total Protein 5.7 g/dL (6.3-8.2) L 07/15/22 15:49 Albumin 3.9 g/dL (3.9-5) 07/15/22 15:49 Albumin/Globulin Ratio 2.2 % 07/15/22 15:49 Vancomycin Trough 5.2 ug/mL (5.0-20.0) 07/21/22 10:00 Microbiology: Microbiology 07/16/22 10:09 Peripheral/Venous Blood Culture - Final NO GROWTH AFTER 5 DAYS 07/16/22 10:09 Peripheral/Venous Blood Culture - Final NO GROWTH AFTER 5 DAYS Steward/IV: Voiding Method Toilet Active Medications - Current Medications Current Medications: Generic Name Dose Route Start Last Admin Trade Name Freq PRN Reason Stop Dose Admin Acetaminophen 650 mg 07/15/22 22:49 Acetaminophen 325 Mg Tab PO Q4H PRN Pain MILD(1-3)/Fever >100.5/GRIER Aspirin 325 mg 07/16/22 10:00 07/22/22 09:56 Aspirin Ec 325 Mg Tab PO 325 mg QDAY [facility] Administration Atorvastatin Calcium 80 mg 07/16/22 10:00 07/22/22 09:55 Atorvastatin 40 Mg Tab PO 80 mg DAILY [facility] Administration Carvedilol 12.5 mg 07/16/22 08:00 07/22/22 09:56 Carvedilol 12.5 Mg Tab PO 12.5 mg DAILY@0800 [facility] Administration Doxycycline Hyclate 100 mg 07/22/22 22:00 Doxycycline 100 Mg Cap PO 08/05/22 10:01 BID [facility] Protocol Enoxaparin Sodium 90 mg 07/21/22 12:00 07/22/22 09:54 Enoxaparin 100 Mg/1 Ml Inj SUB-Q 90 mg Q12HR [facility] Administration Protocol Lamotrigine 100 mg 07/16/22 10:00 07/22/22 09:55 Lamotrigine 100 Mg Tab PO 100 mg BID [facility] Administration Levetiracetam 1,000 mg 07/16/22 10:00 07/22/22 09:56 Levetiracetam 500 Mg Tab PO 1,000 mg BID BROOK Administration Lorazepam 0.5 mg 07/16/22 12:00 07/16/22 12:09 Lorazepam 0.5 Mg Tab PO 0.5 mg Q12H PRN Administration Agitation Magnesium Hydroxide 30 ml 07/15/22 22:49 Magnesium Hydroxide (Mom) Oral Liqd Udc PO Q4H PRN Constipation Metoclopramide HCl 5 mg 07/22/22 11:30 07/22/22 11:27 Metoclopramide 10 Mg Tab PO 5 mg ACHS [facility] Administration Morphine Sulfate 2 mg 07/15/22 22:49 07/20/22 18:39 Morphine 2 Mg/1 Ml Inj IV 2 mg Q4H PRN Administration Pain, Moderate (4-6) Morphine Sulfate 4 mg 07/15/22 22:49 07/22/22 14:22 Morphine 4 Mg/1 Ml Inj IV 4 mg Q4H PRN Administration Pain , Severe (7-10) Morphine Sulfate 2 mg 07/15/22 22:49 Morphine 2 Mg/1 Ml Inj IV Q5MIN PRN Chest Pain unrelieved by NTG Nitroglycerin 0.4 mg 07/15/22 22:49 Nitroglycerin 0.4 Mg Tab Subl SL Q5M PRN Chest Pain Ondansetron HCl 4 mg 07/15/22 22:49 Ondansetron 4 Mg/2 Ml Inj IV Q8H PRN Nausea And Vomiting Povidone Iodine 1 applic 07/18/22 22:00 07/22/22 09:56 Povidone-Iodine Ointment 28.35 Gm TP 1 applic BID [facility] Administration Sertraline HCl 100 mg 07/16/22 10:00 07/22/22 09:55 Sertraline 100 Mg Tab PO 100 mg QDAY [facility] Administration Sodium Chloride 10 ml 07/16/22 10:00 07/22/22 10:00 Sodium Chloride 0.9% 10 Ml Flush Syringe IV 10 ml BID [facility] Administration Sodium Chloride 10 ml 07/15/22 22:49 Sodium Chloride 0.9% 10 Ml Flush Syringe IV PRN PRN LINE FLUSH Tramadol HCl 50 mg 07/15/22 22:49 Tramadol 50 Mg Tab PO Q6H PRN Pain, Moderate (4-6) Trazodone HCl 100 mg 07/16/22 22:00 07/21/22 22:00 Trazodone 100 Mg Tab PO 100 mg QHS BROOK Administration Warfarin Sodium 10 mg 07/20/22 17:00 07/21/22 18:36 Warfarin 10 Mg Tab PO 10 mg DAILY@1700 [facility] Administration Nutrition/Malnutrition Assess - Dietary Evaluation Nutrition/Malnutrition Findings: Nutrition Notes Start: 07/21/22 16:39 Freq: Status: Active Protocol: Document 07/21/22 16:39 ADEOLA (Rec: 07/21/22 17:06 ADEOLA [id number]) Nutrition Notes Need for Assessment generated from: Education Initial or Follow up Assessment Current Diagnosis Coronary Artery Disease, Hypertension Other Pertinent Diagnosis Pacemaker Pocket Infection, Anemia, DVT/PE, Romeo Pain/N/V/ SOB, ... Current Diet Cardiac Diet (since L 07/18). Labs/Tests 07/21: Crea 0.7, Glu 216, Ca 7 .6. Pertinent Medications 07/21: Coumadin 10mg, others nutritionally unremarkable. 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 Weight Status Overweight Subjective/Other Information RD consult for warfarine use assessment. No reports available on Pt's PO intake of meals at the time , will assess at F/U. Pt is on Room Air, O2 saturation @ 94%, according to Physical Assessment History notes. Pt is a long-term user of coumadin, not a candidate for nutrition education. Percent of energy/protein needs met: Prescribed Cardiac Diet provides for energy/protein needs (2,230 Kcal/85 g) during LOS. Burn Absent Trauma Absent GI Symptoms None Food Allergy Yes Skin Integrity/Comment Assessment WNL. Minimum of two criteria No Fluid Accumulation N/A Reduced Housing And Residence Life Director Strength N/A (non-severe) Protein-Calorie Malnutrition N\A #1 Nutrition Diagnosis No nutrition diagnosis at this time Is patient on ventilator? No Is Patient Ambulatory and/or Out of Bed Yes REE-([facility]-ambulatory/OOB) [ 5548.330 [id number]] Kcal/Kg value to use for calculation 20 Approximate Energy Requirements Using 1730 kcal/Kg Calculation Used for Recommendations Kcal/kg Additional Notes Protein: 0.8-1 g/Kg ABW; 70-87 g/day. Fluids: 1 ml/Kcal, or as per MD. Nutrition Intervention Change Diet Order: Continue Cardiac Diet as tolerated. Follow-Up By: 07/28/22 Additional Comments Continue monitoring food tolerance, %PO intake of meals , and BM.
[2022-07-22] MEDS: WARFARIN 10 MG TAB PO SCH (17:49)
--- NOTE | 2022-07-22 18:32 | Progress Note ---
Assessment and Plan Cultures: Blood culture no growth so far A/P: 87-year-old man past medical history hypertension, mechanical valve replacement, pacemaker in place, CAD #Pacemaker incision site cellulitis: Infection doesn't appear to extend too deep. Blood cultures negative. Recs: -Continue vancomycin goal trough 10-20 -Okay to discharge on doxycycline 100 mg 12 hours for 14 days as he is generally noncompliant with IV therapy even while in the hospital Thank you for the consult, we will continue to follow. Renaldo Peña MD [facility] O: [phone] F: [phone] Subjective Date of service: 07/22/22 Principal diagnosis: Chest pain Interval history: Afebrile, white counts remain low. Otherwise no new issues. Objective - Exam Narrative Exam: Physical Exam: Constitutional: Alert, cooperative. No acute distress Head, Ears, Nose: Normocephalic, atraumatic. External ears, nose normal Eyes: Conjunctivae/corneas clear. No icterus. No ptosis. Neck: Supple, no meningeal signs Oral: dentition fair, no thrush Cardiovascular: S1, S2 normal. Respiratory: Good air entry, clear to auscultation bilaterally GI: Soft, non-tender; bowel sounds normal. No peritoneal signs. Musculoskeletal: Pacemaker incision site improving Skin: No rash or abscess Hem/Lymphatic: No palpable cervical or supraclavicular nodes. No lymphangitis Psych: Mood ok. Affect normal Neurological: Awake, alert, oriented. No gross abnormality - Constitutional Vitals: Vital Signs Temp Pulse Resp BP Pulse Ox 97.8 F 87 21 135/55 100 07/22/22 07:22 07/22/22 10:00 07/22/22 10:00 07/22/22 07:22 07/22/22 10:00 Temperature -Last 24 Hours Temperature 97.8 F Temperature 98.3 F - Labs CBC & Chem 7: 07/22/22 04:00 07/22/22 Unknown Labs: Abnormal lab results 07/22/22 07/22/22 Range/Units 04:00 Unknown Hgb 8.1 L (11.8-15.2) gm/dl Hct 24.8 L (35.5-45.6) % Plt Count 131 L (140-440) K/mm3 BUN 7 L (9-20) mg/dL Creatinine 0.7 L (0.8-1.3) mg/dL Glucose 130 H (75-100) mg/dL Calcium 8.0 L (8.4-10.2) mg/dL
[2022-07-22] MEDS: traZODone 100 MG TAB PO SCH (21:47)
[2022-07-22] MEDS: DOXYCYCLINE 100 MG CAP PO SCH (21:47)
[2022-07-23] MEDS: MORPHINE 4 MG/1 ML INJ IV PRN ×5 (03:47→21:04)
[2022-07-23] MEDS: carvediloL 12.5 MG TAB PO SCH (08:42)
[2022-07-23] MEDS: METOCLOPRAMIDE 10 MG TAB PO SCH ×4 (08:45→21:02)
--- NOTE | 2022-07-23 08:53 | Progress Note ---
Assessment and Plan Assessment and plan: 87-year-old male with known history of hypertension, ascending aortic aneurysm, mechanical valve replacement, defibrillator, coronary artery disease with cardiac stent placement in the past, DVTPE with IVC filter placement presenting to the emergency room today for chest pain. Chest x-ray showed no acute findings. Chest CTA showed mild cardiomegaly with mild interstitial edema. No evidence of aneurysm/dissection involving the aortic arch or descending thoracic aorta. The patient was admitted with diagnoses below: #Pacemaker pocket infection (present on admission) #Hypertension #Dual-chamber pacemaker inserted 2 weeks ago in [place] ([employer]ron[place] per patient) #Coronary artery disease status post coronary artery bypass grafting in 2013. Cath reportedly performed 1 year ago in [place] revealing occlusion of the bypass graft. 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 Cardiology following. Continue Lovenox 80 mg twice daily. Hold warfarin in case of invasive cardiac evaluation per cardiology. Obtain all records from [place]. Device interrogation is pending. Obtain blood cultures (device site is erythematous with clear drainage, surgical pablo were removed this morning). Negative troponin x2. No ischemic EKG changes 07/17/2022. Continue Lovenox 80 mg twice daily. Obtain all records from [place]. Device interrogation is pending. Obtain blood cultures (device site is erythematous with clear drainage, surgical pablo were removed yesterday nahid jama). We will start empiric antibiotics of vancomycin for chest wall cellulitis. Consider ID consultation. Negative troponin x2. No ischemic EKG changes 07/18/2022. Replete potassium. Cardiology considering invasive ischemic evaluation. Continue Lovenox 80 mg twice daily. Subtherapeutic INR for mechanical valve. Obtain all records from [place]. Device interrogation is pending. Obtain blood cultures (device site is erythematous with clear drainage, surgical pablo were removed yesterday morning). Continue vancomycin for chest wall cellulitis. Consider ID consultation. Negative troponin x2. No ischemic EKG changes 07/19/2022. Infectious disease consulted for further recommendations regarding possible pacemaker pocket infection (pacemaker placed approximately 2 weeks ago and [place]). Continue vancomycin. Blood cultures unremarkable x2; however, patient and nursing endorse purulent discharge from pacemaker pocket. Continue heparin drip while determining if pacemaker will need to be removed. Patient will be discharged home on warfarin when medically cleared. 07/20/2022. Cardiology starting warfarin 10 mg daily. Continue heparin for bridging. Continue vancomycin; blood cultures unremarkable x72 hours. Pending final oral antibiotics by Infectious Disease. 07/21/2022. Continue warfarin 10 mg daily. Pending INR (goal 2.53.5). Continue vancomycin administration. Pending final oral antibiotic decision by infectious disease. If IV antibiotics are required, this will be set up with case management as soon as possible. 07/22/2022. Continue warfarin 10 mg daily. Current INR 0.97 (goal 2.53.5). Vancomycin discontinued. Starting doxycycline 100 mg twice daily x14 days (completes on August 05). Patient will be medically clear for discharge once INR goal is reached. 07/23/2022. Continue warfarin 10 mg daily. Current INR 1.21 (goal 2.53.5). Continue doxycycline 100 mg twice daily x14 days. Patient will be medically clear for discharge once INR goal is reached. Disposition Plan: Continue medical management Total Time Spent with Patient (Minutes): 45 min History Interval history: No acute events overnight. Hospitalist Physical - Constitutional Vitals: Temp Pulse Resp BP Pulse Ox 99.1 F 90 18 111/68 98 07/23/22 04:52 07/23/22 04:52 07/23/22 04:52 07/23/22 04:52 07/23/22 04:52 General appearance: Present: no acute distress, well-nourished, other (Pacemaker in upper left chest with purulent discharge oozing from pacemaker pocket) - EENT Eyes: Present: PERRL, EOM intact ENT: hearing intact, clear oral mucosa, dentition normal - Neck Neck: Present: supple, normal ROM - Respiratory Respiratory effort: normal Respiratory: bilateral: CTA - Cardiovascular Rhythm: regular Heart Sounds: Present: S1 & S2 - Extremities Extremities: no ischemia, pulses intact, pulses symmetrical, No edema, normal temperature, normal color Peripheral Pulses: within normal limits - Abdominal General gastrointestinal: soft, non-tender, non-distended, normal bowel sounds - Integumentary Integumentary: Present: clear, warm, dry - Psychiatric Psychiatric: appropriate mood/affect, intact judgment & insight, memory intact, cooperative - Neurologic Neurologic: CNII-XII intact, moves all extremities - Allied Health Allied health notes reviewed: nursing, case management HEART Score - HEART Score EKG: Non-specific Age: 45-65 Risk factors: > 3 risk factors or hx of atherosclerotic disease Troponin: Troponin T < 0.010 ng/mL (0.00-0.029) 07/16/22 10:09 Troponin: < normal limit Results - Labs CBC & Chem 7: 07/22/22 04:00 07/22/22 Unknown Labs: Laboratory Last Values WBC 3.0 K/mm3 (4.5-11.0) L 07/20/22 04:00 RBC 2.97 M/mm3 (3.65-5.03) L 07/20/22 04:00 Hgb 8.1 gm/dl (11.8-15.2) L 07/22/22 04:00 Hct 24.8 % (35.5-45.6) L 07/22/22 04:00 MCV 83 fl (84-94) L 07/20/22 04:00 MCH 27 pg (28-32) L 07/20/22 04:00 MCHC 32 % (32-34) 07/20/22 04:00 RDW 23.8 % (13.2-15.2) H 07/20/22 04:00 Plt Count 131 K/mm3 (140-440) L 07/22/22 04:00 Lymph % (Auto) 11.5 % (13.4-35.0) L 07/20/22 04:00 [place] % (Auto) 11.0 % (0.0-7.3) H 07/20/22 04:00 Eos % (Auto) 0.9 % (0.0-4.3) 07/20/22 04:00 Baso % (Auto) 0.5 % (0.0-1.8) 07/20/22 04:00 Lymph # (Auto) 0.3 K/mm3 (1.2-5.4) L 07/20/22 04:00 [place] # (Auto) 0.3 K/mm3 (0.0-0.8) 07/20/22 04:00 Eos # (Auto) 0.0 K/mm3 (0.0-0.4) 07/20/22 04:00 Baso # (Auto) 0.0 K/mm3 (0.0-0.1) 07/20/22 04:00 Add Manual Diff Complete 07/19/22 04:00 Total Counted 100 07/19/22 04:00 Seg Neutrophils % 76.1 % (40.0-70.0) H 07/20/22 04:00 Seg Neuts % (Manual) 79.0 % (40.0-70.0) H 07/19/22 04:00 Band Neutrophils % 3.0 % 07/19/22 04:00 Lymphocytes % (Manual) 11.0 % (13.4-35.0) L 07/19/22 04:00 Reactive Lymphs % (Man) 0 % 07/19/22 04:00 Monocytes % (Manual) 5.0 % (0.0-7.3) 07/19/22 04:00 Eosinophils % (Manual) 2.0 % (0.0-4.3) 07/19/22 04:00 Basophils % (Manual) 0 % (0.0-1.8) 07/19/22 04:00 Metamyelocytes % 0 % 07/19/22 04:00 Myelocytes % 0 % 07/19/22 04:00 Promyelocytes % 0 % 07/19/22 04:00 Blast Cells % 0 % 07/19/22 04:00 Nucleated RBC % Not Reportable 07/19/22 04:00 Seg Neutrophils # 2.3 K/mm3 (1.8-7.7) 07/20/22 04:00 Seg Neutrophils # Man 3.5 K/mm3 (1.8-7.7) 07/19/22 04:00 Band Neutrophils # 0.1 K/mm3 07/19/22 04:00 Lymphocytes # (Manual) 0.5 K/mm3 (1.2-5.4) L 07/19/22 04:00 Abs React Lymphs (Man) 0.0 K/mm3 07/19/22 04:00 Monocytes # (Manual) 0.2 K/mm3 (0.0-0.8) 07/19/22 04:00 Eosinophils # (Manual) 0.1 K/mm3 (0.0-0.4) 07/19/22 04:00 Basophils # (Manual) 0.0 K/mm3 (0.0-0.1) 07/19/22 04:00 Metamyelocytes # 0.0 K/mm3 07/19/22 04:00 Myelocytes # 0.0 K/mm3 07/19/22 04:00 Promyelocytes # 0.0 K/mm3 07/19/22 04:00 Blast Cells # 0.0 K/mm3 07/19/22 04:00 WBC Morphology Not Reportable 07/19/22 04:00 Hypersegmented Neuts Not Reportable 07/19/22 04:00 Hyposegmented Neuts Not Reportable 07/19/22 04:00 Hypogranular Neuts Not Reportable 07/19/22 04:00 Smudge Cells Not Reportable 07/19/22 04:00 Toxic Granulation Not Reportable 07/19/22 04:00 Toxic Vacuolation Not Reportable 07/19/22 04:00 Dohle Bodies Not Reportable 07/19/22 04:00 Pelger-Huet Anomaly Not Reportable 07/19/22 04:00 Bubba Rods Not Reportable 07/19/22 04:00 Platelet Estimate Consistent w auto 07/19/22 04:00 Clumped Platelets Not Reportable 07/19/22 04:00 Plt Clumps, EDTA Not Reportable 07/19/22 04:00 Large Platelets Not Reportable 07/19/22 04:00 Giant Platelets Not Reportable 07/19/22 04:00 Platelet Satelliting Not Reportable 07/19/22 04:00 Plt Morphology Comment Not Reportable 07/19/22 04:00 RBC Morphology Not Reportable 07/19/22 04:00 Dimorphic RBCs Not Reportable 07/19/22 04:00 Polychromasia Not Reportable 07/19/22 04:00 Hypochromasia Not Reportable 07/19/22 04:00 Poikilocytosis 1+ 07/19/22 04:00 Anisocytosis 2+ 07/19/22 04:00 Microcytosis Not Reportable 07/19/22 04:00 Macrocytosis Not Reportable 07/19/22 04:00 Spherocytes Not Reportable 07/19/22 04:00 Pappenheimer Bodies Not Reportable 07/19/22 04:00 Sickle Cells Not Reportable 07/19/22 04:00 Target Cells Not Reportable 07/19/22 04:00 Tear Drop Cells Few 07/19/22 04:00 Ovalocytes Few 07/19/22 04:00 Helmet Cells Not Reportable 07/19/22 04:00 [place] Bodies Not Reportable 07/19/22 04:00 [place] Rings Not Reportable 07/19/22 04:00 [place] Cells Not Reportable 07/19/22 04:00 Bite Cells Not Reportable 07/19/22 04:00 Crenated Cell Not Reportable 07/19/22 04:00 Elliptocytes Few 07/19/22 04:00 Acanthocytes (Spur) Not Reportable 07/19/22 04:00 Rouleaux Not Reportable 07/19/22 04:00 Hemoglobin C Crystals Not Reportable 07/19/22 04:00 Schistocytes Not Reportable 07/19/22 04:00 Malaria parasites Not Reportable 07/19/22 04:00 Indra Bodies Not Reportable 07/19/22 04:00 Hem Pathologist Commnt No 07/19/22 04:00 PT 13.9 Sec. (12.2-14.9) 07/22/22 04:00 INR 0.97 (0.87-1.13) 07/22/22 04:00 APTT 33.2 Sec. (24.2-36.6) 07/18/22 Unknown Heparin Anti-Xa Level 0.20 U.I./ml (0.3-0.7) L 07/19/22 05:00 Sodium 138 mmol/L (137-145) 07/22/22 Unknown Potassium 3.7 mmol/L (3.6-5.0) 07/22/22 Unknown Chloride 106.6 mmol/L (98-107) 07/22/22 Unknown Carbon Dioxide 24 mmol/L (22-30) 07/22/22 Unknown Anion Gap 11 mmol/L 07/22/22 Unknown BUN 7 mg/dL (9-20) L 07/22/22 Unknown Creatinine 0.7 mg/dL (0.8-1.3) L 07/22/22 Unknown Estimated GFR > 60 ml/min 07/22/22 Unknown BUN/Creatinine Ratio 10 % 07/22/22 Unknown Glucose 130 mg/dL (75-100) H 07/22/22 Unknown Calcium 8.0 mg/dL (8.4-10.2) L 07/22/22 Unknown Iron 33 ug/dL (49-181) L 07/19/22 07:50 TIBC 205 mcg/dL (250-450) L 07/19/22 07:50 Total Bilirubin 0.30 mg/dL (0.1-1.2) 07/15/22 15:49 AST 9 units/L (5-40) 07/15/22 15:49 ALT 14 units/L (7-56) 07/15/22 15:49 Alkaline Phosphatase 83 units/L (35-129) 07/15/22 15:49 Troponin T < 0.010 ng/mL (0.00-0.029) 07/16/22 10:09 Total Protein 5.7 g/dL (6.3-8.2) L 07/15/22 15:49 Albumin 3.9 g/dL (3.9-5) 07/15/22 15:49 Albumin/Globulin Ratio 2.2 % 07/15/22 15:49 Vancomycin Trough 5.2 ug/mL (5.0-20.0) 07/21/22 10:00 Steward/IV: Voiding Method Toilet Active Medications - Current Medications Current Medications: Generic Name Dose Route Start Last Admin Trade Name Freq PRN Reason Stop Dose Admin Acetaminophen 650 mg 07/15/22 22:49 Acetaminophen 325 Mg Tab PO Q4H PRN Pain MILD(1-3)/Fever >100.5/GRIER Aspirin 325 mg 07/16/22 10:00 07/22/22 09:56 Aspirin Ec 325 Mg Tab PO 325 mg QDAY BROOK Administration Atorvastatin Calcium 80 mg 07/16/22 10:00 07/22/22 09:55 Atorvastatin 40 Mg Tab PO 80 mg DAILY BROOK Administration Carvedilol 12.5 mg 07/16/22 08:00 07/23/22 08:42 Carvedilol 12.5 Mg Tab PO 12.5 mg DAILY@0800 [facility] Administration Doxycycline Hyclate 100 mg 07/22/22 22:00 07/22/22 21:47 Doxycycline 100 Mg Cap PO 08/05/22 10:01 100 mg BID BROOK Administration Protocol Enoxaparin Sodium 90 mg 07/21/22 12:00 07/22/22 21:43 Enoxaparin 100 Mg/1 Ml Inj SUB-Q 90 mg Q12HR BROOK Administration Protocol Lamotrigine 100 mg 07/16/22 10:00 07/22/22 21:50 Lamotrigine 100 Mg Tab PO 100 mg BID BROOK Administration Levetiracetam 1,000 mg 07/16/22 10:00 07/22/22 21:47 Levetiracetam 500 Mg Tab PO 1,000 mg BID BROOK Administration Lorazepam 0.5 mg 07/16/22 12:00 07/16/22 12:09 Lorazepam 0.5 Mg Tab PO 0.5 mg Q12H PRN Administration Agitation Magnesium Hydroxide 30 ml 07/15/22 22:49 Magnesium Hydroxide (Mom) Oral Liqd Udc PO Q4H PRN Constipation Metoclopramide HCl 5 mg 07/22/22 11:30 07/23/22 08:45 Metoclopramide 10 Mg Tab PO 5 mg ACHS BROOK Administration Morphine Sulfate 2 mg 07/15/22 22:49 07/20/22 18:39 Morphine 2 Mg/1 Ml Inj IV 2 mg Q4H PRN Administration Pain, Moderate (4-6) Morphine Sulfate 4 mg 07/15/22 22:49 07/23/22 08:39 Morphine 4 Mg/1 Ml Inj IV 4 mg Q4H PRN Administration Pain , Severe (7-10) Morphine Sulfate 2 mg 07/15/22 22:49 Morphine 2 Mg/1 Ml Inj IV Q5MIN PRN Chest Pain unrelieved by NTG Nitroglycerin 0.4 mg 07/15/22 22:49 Nitroglycerin 0.4 Mg Tab Subl SL Q5M PRN Chest Pain Ondansetron HCl 4 mg 07/15/22 22:49 Ondansetron 4 Mg/2 Ml Inj IV Q8H PRN Nausea And Vomiting Povidone Iodine 1 applic 07/18/22 22:00 07/22/22 21:48 Povidone-Iodine Ointment 28.35 Gm TP 1 applic BID BROOK Administration Sertraline HCl 100 mg 07/16/22 10:00 07/22/22 09:55 Sertraline 100 Mg Tab PO 100 mg QDAY BROOK Administration Sodium Chloride 10 ml 07/16/22 10:00 07/22/22 21:50 Sodium Chloride 0.9% 10 Ml Flush Syringe IV 10 ml BID BROOK Administration Sodium Chloride 10 ml 07/15/22 22:49 08/27/22 08:40 Sodium Chloride 0.9% 10 Ml Flush Syringe IV 10 ml PRN PRN Administration LINE FLUSH Tramadol HCl 50 mg 07/15/22 22:49 Tramadol 50 Mg Tab PO Q6H PRN Pain, Moderate (4-6) Trazodone HCl 100 mg 07/16/22 22:00 07/22/22 21:47 Trazodone 100 Mg Tab PO 100 mg QHS BROOK Administration Warfarin Sodium 10 mg 07/20/22 17:00 07/22/22 17:49 Warfarin 10 Mg Tab PO 10 mg DAILY@1700 [facility] Administration Nutrition/Malnutrition Assess - Dietary Evaluation Nutrition/Malnutrition Findings: Nutrition Notes Start: 07/21/22 16:39 Freq: Status: Active Protocol: Document 07/21/22 16:39 ADEOLA (Rec: 07/21/22 17:06 [email or web address] [id number]) Nutrition Notes Need for Assessment generated from: Education Initial or Follow up Assessment Current Diagnosis Coronary Artery Disease, Hypertension Other Pertinent Diagnosis Pacemaker Pocket Infection, Anemia, DVT/PE, [place] Pain/N/V/ SOB, ... Current Diet Cardiac Diet (since L 07/18). Labs/Tests 07/21: Crea 0.7, Glu 216, Ca 7 .6. Pertinent Medications 07/21: Coumadin 10mg, others nutritionally unremarkable. Height 5 ft 7 in Weight 86.5 kg [place] Body Weight (kg) 67.27 BMI 29.8 Intake Prior to Admission Good Weight change and time frame Pt denies having loss body weight [employer]. Weight Status Overweight Subjective/Other Information RD consult for warfarine use assessment. No reports available on Pt's PO intake of meals at the time , will assess at F/U. Pt is on Room Air, O2 saturation @ 94%, according to Physical Assessment History notes. Pt is a long-term user of coumadin, not a candidate for nutrition education. Percent of energy/protein needs met: Prescribed Cardiac Diet provides for energy/protein needs (2,230 Kcal/85 g) during LOS. Burn Absent Trauma Absent GI Symptoms None Food Allergy Yes Skin Integrity/Comment Assessment WNL. Minimum of two criteria No Fluid Accumulation N/A Reduced [employer] Worker Strength N/A (non-severe) Protein-Calorie Malnutrition N\A #1 Nutrition Diagnosis No nutrition diagnosis at this time Is patient on ventilator? No Is Patient Ambulatory and/or Out of Bed Yes REE-([place]-St. Jeor-ambulatory/OOB) [ 1699.719 [id number]] Kcal/Kg value to use for calculation 20 Approximate Energy Requirements Using 1730 kcal/Kg Calculation Used for Recommendations Kcal/kg Additional Notes Protein: 0.8-1 g/Kg ABW; 70-87 g/day. Fluids: 1 ml/Kcal, or as per MD. Nutrition Intervention Change Diet Order: Continue Cardiac Diet as tolerated. Follow-Up By: 07/28/22 Additional Comments Continue monitoring food tolerance, %PO intake of meals , and BM.
[2022-07-23 08:56] LABS: INR 4.14 (0.87-1.13)
[2022-07-23] MEDS: levETIRAcetam 500 MG TAB PO SCH ×2 (09:06→21:01)
[2022-07-23] MEDS: ASPIRIN EC 325 MG TAB PO SCH (09:06)
[2022-07-23] MEDS: lamoTRIgine 100 MG TAB PO SCH ×2 (09:07→21:01)
[2022-07-23] MEDS: DOXYCYCLINE 100 MG CAP PO SCH ×2 (09:07→21:02)
[2022-07-23] MEDS: SERTRALINE 100 MG TAB PO SCH (09:07)
[2022-07-23] MEDS: ENOXAPARIN 100 MG/1 ML INJ SUB-Q SCH ×2 (09:08→21:01)
[2022-07-23] MEDS: POVIDONE-IODINE OINTMENT 28.35 GM TP SCH ×2 (09:10→21:03)
[2022-07-23 09:39] LABS: INR 1.21 (0.87-1.13)
--- NOTE | 2022-07-23 16:28 | Progress Note ---
Assessment and Plan - Patient Problems (1) History of mechanical aortic valve replacement Current Visit: Yes Status: Acute Plan to address problem: The patient presented with subtherapeutic INR of 0.9, despite professed compliance with warfarin at 10 mg daily. Restarted warfarin 10 mg daily, goal of INR is 2.5-3.5. Patient advised to maintain bridge Lovenox therapy until therapeutic. (2) Infection of pacemaker pulse generator site Current Visit: Yes Status: Acute Plan to address problem: At this time, he will be recommended for continued antibiotic therapy per ID recommendations, and continued wound care. Ultimate plan is for outpatient management with subcutaneous Lovenox as a bridge to therapeutic warfarin levels. (3) Chest pain Current Visit: Yes Status: Acute Plan to address problem: Patient's chest pain is atypical, ECGs and troponin levels are unremarkable. Continue guideline directed medical therapy for coronary artery disease and chronic stable angina. Subjective Date of service: 07/23/22 Principal diagnosis: Chest pain Interval history: Patient is comfortable, no acute distress, no new cardiac events reported. His INR is 1.21, ongoing warfarin therapy. The superficial infection on his left upper chest pacemaker site is resolving, erythema is resolved, no further purulent drainage. Objective Vital Signs Temp Pulse Resp Resp BP BP Pulse Ox 07/23/22 10:00 18 99 07/23/22 08:00 90 07/23/22 04:52 99.1 F 90 18 111/68 98 07/23/22 03:47 18 07/22/22 21:52 18 07/22/22 20:46 99 07/22/22 20:43 95 H 07/22/22 19:37 98.7 F 84 14 102/43 97 - Physical Examination General: No Apparent Distress HEENT: Positive: PERRL Neck: Positive: neck supple Cardiac: Positive: Reg Rate and Rhythm Lungs: Positive: Decreased Breath Sounds Neuro: Positive: Grossly Intact Abdomen: Positive: Soft Skin: Positive: Clear Extremities: Absent: edema - Labs and Meds Coagulation 07/23/22 07/23/22 Range/Units 06:30 08:50 PT 45.8 H 16.7 H (12.2-14.9) Sec. INR 4.14 H 1.21 H (0.87-1.13)
[2022-07-23] MEDS ORDERED: WARFARIN 2.5 MG TAB PO NR (17:00)
[2022-07-23] MEDS ORDERED: WARFARIN 10 MG TAB PO NR (17:00)
[2022-07-23] MEDS: traZODone 100 MG TAB PO SCH (21:03)
[2022-07-24] MEDS: MORPHINE 4 MG/1 ML INJ IV PRN ×5 (01:08→21:15)
[2022-07-24 06:13] LABS: Hematocrit 23.8 % (35.5-45.6); Hemoglobin 7.7 gm/dl (11.8-15.2)
[2022-07-24 06:22] LABS: INR 1.35 (0.87-1.13)
[2022-07-24] MEDS: SERTRALINE 100 MG TAB PO SCH (09:13)
[2022-07-24] MEDS: DOXYCYCLINE 100 MG CAP PO SCH ×2 (09:13→21:13)
[2022-07-24] MEDS: lamoTRIgine 100 MG TAB PO SCH ×2 (09:13→21:15)
[2022-07-24] MEDS: METOCLOPRAMIDE 10 MG TAB PO SCH ×3 (09:13→21:14)
[2022-07-24] MEDS: ASPIRIN EC 325 MG TAB PO SCH (09:13)
[2022-07-24] MEDS: ENOXAPARIN 100 MG/1 ML INJ SUB-Q SCH ×2 (09:14→21:16)
[2022-07-24] MEDS: carvediloL 12.5 MG TAB PO SCH (09:14)
[2022-07-24] MEDS: levETIRAcetam 500 MG TAB PO SCH ×2 (09:14→21:15)
--- NOTE | 2022-07-24 09:21 | Progress Note ---
Assessment and Plan Assessment and plan: 87-year-old male with known history of hypertension, ascending aortic aneurysm, mechanical valve replacement, defibrillator, coronary artery disease with cardiac stent placement in the past, DVTPE with IVC filter placement presenting to the emergency room today for chest pain. Chest x-ray showed no acute findings. Chest CTA showed mild cardiomegaly with mild interstitial edema. No evidence of aneurysm/dissection involving the aortic arch or descending thoracic aorta. The patient was admitted with diagnoses below: #Pacemaker pocket infection (present on admission)improving #Hypertension #Dual-chamber pacemaker inserted 2 weeks ago in [place] ([employer]ron[employer] per patient) #Coronary artery disease status post coronary artery bypass grafting in 2013. Cath reportedly performed 1 year ago in [place] revealing occlusion of the bypass graft. 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 Cardiology following. Continue Lovenox 80 mg twice daily. Hold warfarin in case of invasive cardiac evaluation per cardiology. Obtain all records from [place]. Device interrogation is pending. Obtain blood cultures (device site is erythematous with clear drainage, surgical pablo were removed this morning). Negative troponin x2. No ischemic EKG changes 07/17/2022. Continue Lovenox 80 mg twice daily. Obtain all records from [place]. Device interrogation is pending. Obtain blood cultures (device site is erythematous with clear drainage, surgical pablo were removed yesterday morning). We will start empiric antibiotics of vancomycin for chest wall cellulitis. Consider ID consultation. Negative troponin x2. No ischemic EKG changes 07/18/2022. Replete potassium. Cardiology considering invasive ischemic evaluation. Continue Lovenox 80 mg twice daily. Subtherapeutic INR for mechanical valve. Obtain all records from [place]. Device interrogation is pending. Obtain blood cultures (device site is erythematous with clear drainage, surgical pablo were removed yesterday morning). Continue vancomycin for chest wall cellulitis. Consider ID consultation. Negative troponin x2. No ischemic EKG changes 07/19/2022. Infectious disease consulted for further recommendations regarding possible pacemaker pocket infection (pacemaker placed approximately 2 weeks ago and [place]). Continue vancomycin. Blood cultures unremarkable x2; however, patient and nursing endorse purulent discharge from pacemaker pocket. Continue heparin drip while determining if pacemaker will need to be removed. Patient will be discharged home on warfarin when medically cleared. 07/20/2022. Cardiology starting warfarin 10 mg daily. Continue heparin for bridging. Continue vancomycin; blood cultures unremarkable x72 hours. Pending final oral antibiotics by Infectious Disease. 07/21/2022. Continue warfarin 10 mg daily. Pending INR (goal 2.53.5). Continue vancomycin administration. Pending final oral antibiotic decision by infectious disease. If IV antibiotics are required, this will be set up with case management as soon as possible. 07/22/2022. Continue warfarin 10 mg daily. Current INR 0.97 (goal 2.53.5). Vancomycin discontinued. Starting doxycycline 100 mg twice daily x14 days (completes on August 05). Patient will be medically clear for discharge once INR goal is reached. 07/23/2022. Continue warfarin 10 mg daily. Current INR 1.21 (goal 2.53.5). Continue doxycycline 100 mg twice daily x14 days. Patient will be medically clear for discharge once INR goal is reached. 07/24/2022. Continue warfarin 10 mg daily (current INR 1.35 goal 2.53.5). Patient received warfarin 12.5 mg x 1 yesterday. Continue doxycycline 100 mg twice daily x14 days (completes 08/05/2022). Patient will be medically clear for discharge once INR goal is reached. Disposition Plan: Continue medical management Total Time Spent with Patient (Minutes): 45 min History Interval history: No acute events overnight. Hospitalist Physical - Constitutional Vitals: Temp Pulse Resp BP Pulse Ox 98.4 F 90 20 114/57 100 07/24/22 00:12 07/24/22 00:12 07/24/22 01:38 07/24/22 00:12 07/24/22 00:12 General appearance: Present: no acute distress, well-nourished, other (Pacemaker in upper left chest with minimal purulent discharge oozing from pacemaker pocket) - EENT Eyes: Present: PERRL, EOM intact ENT: hearing intact, clear oral mucosa, dentition normal - Neck Neck: Present: supple, normal ROM - Respiratory Respiratory effort: normal - Cardiovascular Rhythm: regular Heart Sounds: Present: S1 & S2 - Extremities Extremities: no ischemia, pulses intact, pulses symmetrical, No edema, normal temperature, normal color Peripheral Pulses: within normal limits - Abdominal General gastrointestinal: soft, non-tender, non-distended, normal bowel sounds - Integumentary Integumentary: Present: clear, warm, dry - Psychiatric Psychiatric: appropriate mood/affect, intact judgment & insight, memory intact, cooperative - Neurologic Neurologic: CNII-XII intact, moves all extremities - Allied Health Allied health notes reviewed: nursing, case management HEART Score - HEART Score EKG: Non-specific Age: 45-65 Risk factors: > 3 risk factors or hx of atherosclerotic disease Troponin: Troponin T < 0.010 ng/mL (0.00-0.029) 07/16/22 10:09 Troponin: < normal limit Results - Labs CBC & Chem 7: 07/24/22 06:00 07/22/22 Unknown Labs: Laboratory Last Values WBC 3.0 K/mm3 (4.5-11.0) L 07/20/22 04:00 RBC 2.97 M/mm3 (3.65-5.03) L 07/20/22 04:00 Hgb 7.7 gm/dl (11.8-15.2) L 07/24/22 06:00 Hct 23.8 % (35.5-45.6) L 07/24/22 06:00 MCV 83 fl (84-94) L 07/20/22 04:00 MCH 27 pg (28-32) L 07/20/22 04:00 MCHC 32 % (32-34) 07/20/22 04:00 RDW 23.8 % (13.2-15.2) H 07/20/22 04:00 Plt Count 120 K/mm3 (140-440) L 07/24/22 06:00 Lymph % (Auto) 11.5 % (13.4-35.0) L 07/20/22 04:00 O'Brien % (Auto) 11.0 % (0.0-7.3) H 07/20/22 04:00 Eos % (Auto) 0.9 % (0.0-4.3) 07/20/22 04:00 Baso % (Auto) 0.5 % (0.0-1.8) 07/20/22 04:00 Lymph # (Auto) 0.3 K/mm3 (1.2-5.4) L 07/20/22 04:00 O'Brien # (Auto) 0.3 K/mm3 (0.0-0.8) 07/20/22 04:00 Eos # (Auto) 0.0 K/mm3 (0.0-0.4) 07/20/22 04:00 Baso # (Auto) 0.0 K/mm3 (0.0-0.1) 07/20/22 04:00 Add Manual Diff Complete 07/19/22 04:00 Total Counted 100 07/19/22 04:00 Seg Neutrophils % 76.1 % (40.0-70.0) H 07/20/22 04:00 Seg Neuts % (Manual) 79.0 % (40.0-70.0) H 07/19/22 04:00 Band Neutrophils % 3.0 % 07/19/22 04:00 Lymphocytes % (Manual) 11.0 % (13.4-35.0) L 07/19/22 04:00 Reactive Lymphs % (Man) 0 % 07/19/22 04:00 Monocytes % (Manual) 5.0 % (0.0-7.3) 07/19/22 04:00 Eosinophils % (Manual) 2.0 % (0.0-4.3) 07/19/22 04:00 Basophils % (Manual) 0 % (0.0-1.8) 07/19/22 04:00 Metamyelocytes % 0 % 07/19/22 04:00 Myelocytes % 0 % 07/19/22 04:00 Promyelocytes % 0 % 07/19/22 04:00 Blast Cells % 0 % 07/19/22 04:00 Nucleated RBC % Not Reportable 07/19/22 04:00 Seg Neutrophils # 2.3 K/mm3 (1.8-7.7) 07/20/22 04:00 Seg Neutrophils # Man 3.5 K/mm3 (1.8-7.7) 07/19/22 04:00 Band Neutrophils # 0.1 K/mm3 07/19/22 04:00 Lymphocytes # (Manual) 0.5 K/mm3 (1.2-5.4) L 07/19/22 04:00 Abs React Lymphs (Man) 0.0 K/mm3 07/19/22 04:00 Monocytes # (Manual) 0.2 K/mm3 (0.0-0.8) 07/19/22 04:00 Eosinophils # (Manual) 0.1 K/mm3 (0.0-0.4) 07/19/22 04:00 Basophils # (Manual) 0.0 K/mm3 (0.0-0.1) 07/19/22 04:00 Metamyelocytes # 0.0 K/mm3 07/19/22 04:00 Myelocytes # 0.0 K/mm3 07/19/22 04:00 Promyelocytes # 0.0 K/mm3 07/19/22 04:00 Blast Cells # 0.0 K/mm3 07/19/22 04:00 WBC Morphology Not Reportable 07/19/22 04:00 Hypersegmented Neuts Not Reportable 07/19/22 04:00 Hyposegmented Neuts Not Reportable 07/19/22 04:00 Hypogranular Neuts Not Reportable 07/19/22 04:00 Smudge Cells Not Reportable 07/19/22 04:00 Toxic Granulation Not Reportable 07/19/22 04:00 Toxic Vacuolation Not Reportable 07/19/22 04:00 Dohle Bodies Not Reportable 07/19/22 04:00 Pelger-Huet Anomaly Not Reportable 07/19/22 04:00 Bubba Rods Not Reportable 07/19/22 04:00 Platelet Estimate Consistent w auto 07/19/22 04:00 Clumped Platelets Not Reportable 07/19/22 04:00 Plt Clumps, EDTA Not Reportable 07/19/22 04:00 Large Platelets Not Reportable 07/19/22 04:00 Giant Platelets Not Reportable 07/19/22 04:00 Platelet Satelliting Not Reportable 07/19/22 04:00 Plt Morphology Comment Not Reportable 07/19/22 04:00 RBC Morphology Not Reportable 07/19/22 04:00 Dimorphic RBCs Not Reportable 07/19/22 04:00 Polychromasia Not Reportable 07/19/22 04:00 Hypochromasia Not Reportable 07/19/22 04:00 Poikilocytosis 1+ 07/19/22 04:00 Anisocytosis 2+ 07/19/22 04:00 Microcytosis Not Reportable 07/19/22 04:00 Macrocytosis Not Reportable 07/19/22 04:00 Spherocytes Not Reportable 07/19/22 04:00 Pappenheimer Bodies Not Reportable 07/19/22 04:00 Sickle Cells Not Reportable 07/19/22 04:00 Target Cells Not Reportable 07/19/22 04:00 Tear Drop Cells Few 07/19/22 04:00 Ovalocytes Few 07/19/22 04:00 Helmet Cells Not Reportable 07/19/22 04:00 [place] Bodies Not Reportable 07/19/22 04:00 [place] Rings Not Reportable 07/19/22 04:00 [place] Cells Not Reportable 07/19/22 04:00 Bite Cells Not Reportable 07/19/22 04:00 Crenated Cell Not Reportable 07/19/22 04:00 Elliptocytes Few 07/19/22 04:00 Acanthocytes (Spur) Not Reportable 07/19/22 04:00 Rouleaux Not Reportable 07/19/22 04:00 Hemoglobin C Crystals Not Reportable 07/19/22 04:00 Schistocytes Not Reportable 07/19/22 04:00 Malaria parasites Not Reportable 07/19/22 04:00 Indra Bodies Not Reportable 07/19/22 04:00 Hem Pathologist Commnt No 07/19/22 04:00 PT 18.3 Sec. (12.2-14.9) H 07/24/22 06:00 INR 1.35 (0.87-1.13) H 07/24/22 06:00 APTT 33.2 Sec. (24.2-36.6) 07/18/22 Unknown Heparin Anti-Xa Level 0.20 U.I./ml (0.3-0.7) L 07/19/22 05:00 Sodium 138 mmol/L (137-145) 07/22/22 Unknown Potassium 3.7 mmol/L (3.6-5.0) 07/22/22 Unknown Chloride 106.6 mmol/L (98-107) 07/22/22 Unknown Carbon Dioxide 24 mmol/L (22-30) 07/22/22 Unknown Anion Gap 11 mmol/L 07/22/22 Unknown BUN 7 mg/dL (9-20) L 07/22/22 Unknown Creatinine 0.7 mg/dL (0.8-1.3) L 07/22/22 Unknown Estimated GFR > 60 ml/min 07/22/22 Unknown BUN/Creatinine Ratio 10 % 07/22/22 Unknown Glucose 130 mg/dL (75-100) H 07/22/22 Unknown Calcium 8.0 mg/dL (8.4-10.2) L 07/22/22 Unknown Iron 33 ug/dL (49-181) L 07/19/22 07:50 TIBC 205 mcg/dL (250-450) L 07/19/22 07:50 Total Bilirubin 0.30 mg/dL (0.1-1.2) 07/15/22 15:49 AST 9 units/L (5-40) 07/15/22 15:49 ALT 14 units/L (7-56) 07/15/22 15:49 Alkaline Phosphatase 83 units/L (35-129) 07/15/22 15:49 Troponin T < 0.010 ng/mL (0.00-0.029) 07/16/22 10:09 Total Protein 5.7 g/dL (6.3-8.2) L 07/15/22 15:49 Albumin 3.9 g/dL (3.9-5) 07/15/22 15:49 Albumin/Globulin Ratio 2.2 % 07/15/22 15:49 Vancomycin Trough 5.2 ug/mL (5.0-20.0) 07/21/22 10:00 Steward/IV: Voiding Method Toilet Active Medications - Current Medications Current Medications: Generic Name Dose Route Start Last Admin Trade Name Freq PRN Reason Stop Dose Admin Acetaminophen 650 mg 07/15/22 22:49 Acetaminophen 325 Mg Tab PO Q4H PRN Pain MILD(1-3)/Fever >100.5/GRIER Aspirin 325 mg 07/16/22 10:00 07/24/22 09:13 Aspirin Ec 325 Mg Tab PO 325 mg QDAY BROOK Administration Atorvastatin Calcium 80 mg 07/16/22 10:00 07/24/22 09:14 Atorvastatin 40 Mg Tab PO 80 mg DAILY BROOK Administration Carvedilol 12.5 mg 07/16/22 08:00 07/24/22 09:14 Carvedilol 12.5 Mg Tab PO 12.5 mg DAILY@0800 [facility] Administration Doxycycline Hyclate 100 mg 07/22/22 22:00 07/24/22 09:13 Doxycycline 100 Mg Cap PO 08/05/22 10:01 100 mg BID BROOK Administration Protocol Enoxaparin Sodium 90 mg 07/21/22 12:00 07/24/22 09:14 Enoxaparin 100 Mg/1 Ml Inj SUB-Q 90 mg Q12HR BROOK Administration Protocol Lamotrigine 100 mg 07/16/22 10:00 07/24/22 09:13 Lamotrigine 100 Mg Tab PO 100 mg BID BROOK Administration Levetiracetam 1,000 mg 07/16/22 10:00 07/24/22 09:14 Levetiracetam 500 Mg Tab PO 1,000 mg BID BROOK Administration Lorazepam 0.5 mg 07/16/22 12:00 07/16/22 12:09 Lorazepam 0.5 Mg Tab PO 0.5 mg Q12H PRN Administration Agitation Magnesium Hydroxide 30 ml 07/15/22 22:49 Magnesium Hydroxide (Mom) Oral Liqd Udc PO Q4H PRN Constipation Metoclopramide HCl 5 mg 07/22/22 11:30 07/24/22 09:13 Metoclopramide 10 Mg Tab PO 5 mg ACHS BROOK Administration Morphine Sulfate 2 mg 07/15/22 22:49 07/20/22 18:39 Morphine 2 Mg/1 Ml Inj IV 2 mg Q4H PRN Administration Pain, Moderate (4-6) Morphine Sulfate 4 mg 07/15/22 22:49 07/24/22 09:12 Morphine 4 Mg/1 Ml Inj IV 4 mg Q4H PRN Administration Pain , Severe (7-10) Morphine Sulfate 2 mg 07/15/22 22:49 Morphine 2 Mg/1 Ml Inj IV Q5MIN PRN Chest Pain unrelieved by NTG Nitroglycerin 0.4 mg 07/15/22 22:49 Nitroglycerin 0.4 Mg Tab Subl SL Q5M PRN Chest Pain Ondansetron HCl 4 mg 07/15/22 22:49 Ondansetron 4 Mg/2 Ml Inj IV Q8H PRN Nausea And Vomiting Povidone Iodine 1 applic 07/18/22 22:00 07/23/22 21:03 Povidone-Iodine Ointment 28.35 Gm TP 1 applic BID BROOK Administration Sertraline HCl 100 mg 07/16/22 10:00 07/24/22 09:13 Sertraline 100 Mg Tab PO 100 mg QDAY BROOK Administration Sodium Chloride 10 ml 07/16/22 10:00 07/23/22 21:02 Sodium Chloride 0.9% 10 Ml Flush Syringe IV 10 ml BID BROOK Administration Sodium Chloride 10 ml 07/15/22 22:49 07/23/22 17:31 Sodium Chloride 0.9% 10 Ml Flush Syringe IV 10 ml PRN PRN Administration LINE FLUSH Tramadol HCl 50 mg 07/15/22 22:49 Tramadol 50 Mg Tab PO Q6H PRN Pain, Moderate (4-6) Trazodone HCl 100 mg 07/16/22 22:00 07/23/22 21:03 Trazodone 100 Mg Tab PO 100 mg QHS BROOK Administration Warfarin Sodium 10 mg 07/24/22 17:00 Warfarin 10 Mg Tab PO 07/25/22 16:59 DAILY@1700 NR Warfarin Sodium 2.5 mg 07/24/22 17:00 Warfarin 2.5 Mg Tab PO 07/25/22 16:59 DAILY@1700 NR Nutrition/Malnutrition Assess - Dietary Evaluation Nutrition/Malnutrition Findings: Nutrition Notes Start: 07/21/22 16:39 Freq: Status: Active Protocol: Document 07/21/22 16:39 ADEOLA (Rec: 07/21/22 17:06 [email or web address] [id number]) Nutrition Notes Need for Assessment generated from: Education Initial or Follow up Assessment Current Diagnosis Coronary Artery Disease, Hypertension Other Pertinent Diagnosis Pacemaker Pocket Infection, Anemia, DVT/PE, Romeo Pain/N/V/ SOB, ... Current Diet Cardiac Diet (since L 07/18). Labs/Tests 07/21: Crea 0.7, Glu 216, Ca 7 .6. Pertinent Medications 07/21: Coumadin 10mg, others nutritionally unremarkable. Height 5 ft 7 in Weight 86.5 kg [place] Body Weight (kg) 67.27 BMI 29.8 Intake Prior to Admission Good Weight change and time frame Pt denies having loss body weight [employer]. Weight Status Overweight Subjective/Other Information RD consult for warfarine use assessment. No reports available on Pt's PO intake of meals at the time , will assess at F/U. Pt is on Room Air, O2 saturation @ 94%, according to Physical Assessment History notes. Pt is a long-term user of coumadin, not a candidate for nutrition education. Percent of energy/protein needs met: Prescribed Cardiac Diet provides for energy/protein needs (2,230 Kcal/85 g) during LOS. Burn Absent Trauma Absent GI Symptoms None Food Allergy Yes Skin Integrity/Comment Assessment WNL. Minimum of two criteria No Fluid Accumulation N/A Reduced Kiln Packer Strength N/A (non-severe) Protein-Calorie Malnutrition N\A #1 Nutrition Diagnosis No nutrition diagnosis at this time Is patient on ventilator? No Is Patient Ambulatory and/or Out of Bed Yes REE-([place]-St. Jeor-ambulatory/OOB) [ 2149.719 [id number]] Kcal/Kg value to use for calculation 20 Approximate Energy Requirements Using 1730 kcal/Kg Calculation Used for Recommendations Kcal/kg Additional Notes Protein: 0.8-1 g/Kg ABW; 70-87 g/day. Fluids: 1 ml/Kcal, or as per MD. Nutrition Intervention Change Diet Order: Continue Cardiac Diet as tolerated. Follow-Up By: 07/28/22 Additional Comments Continue monitoring food tolerance, %PO intake of meals , and BM.
[2022-07-24] MEDS ORDERED: HYDROcodone/ACETAMINOPHEN 5-325 MG TAB PO PRN (10:30)
[2022-07-24] MEDS: POVIDONE-IODINE OINTMENT 28.35 GM TP SCH ×2 (12:13→22:35)
--- NOTE | 2022-07-24 15:26 | Progress Note ---
Assessment and Plan - Patient Problems (1) History of mechanical aortic valve replacement Current Visit: Yes Status: Acute Plan to address problem: The patient presented with subtherapeutic INR of 0.9, despite professed compliance with warfarin at 10 mg daily. Restarted warfarin 10 mg daily, goal of INR is 2.5-3.5. Patient advised to maintain bridge Lovenox therapy until therapeutic. (2) Infection of pacemaker pulse generator site Current Visit: Yes Status: Acute Plan to address problem: At this time, he will be recommended for continued antibiotic therapy per ID recommendations, and continued wound care. Ultimate plan is for outpatient management with subcutaneous Lovenox as a bridge to therapeutic warfarin levels. (3) Chest pain Current Visit: Yes Status: Acute Plan to address problem: Patient's chest pain is atypical, ECGs and troponin levels are unremarkable. Continue guideline directed medical therapy for coronary artery disease and chronic stable angina. Subjective Date of service: 07/24/22 Principal diagnosis: Chest pain Interval history: Patient is comfortable in no acute distress, no new cardiac complaints. His INR is currently 1.35. Objective Vital Signs Temp Pulse Resp Resp BP Pulse Ox 07/24/22 10:00 100 07/24/22 01:38 20 07/24/22 01:08 20 07/24/22 00:12 98.4 F 90 20 114/57 100 07/23/22 22:00 98 H 20 100 07/23/22 21:34 20 07/23/22 21:04 20 07/23/22 20:18 98.0 F 98 H 20 123/58 94 07/23/22 16:20 97.8 F 89 18 127/55 96 - Physical Examination General: No Apparent Distress HEENT: Positive: PERRL Neck: Positive: neck supple Cardiac: Positive: Reg Rate and Rhythm Lungs: Positive: Decreased Breath Sounds Neuro: Positive: Grossly Intact Abdomen: Positive: Soft Skin: Positive: Clear Extremities: Absent: edema - Labs and Meds Coagulation 07/24/22 Range/Units 06:00 PT 18.3 H (12.2-14.9) Sec. INR 1.35 H (0.87-1.13) CBC 07/24/22 Range/Units 06:00 Hgb 7.7 L (11.8-15.2) gm/dl Hct 23.8 L (35.5-45.6) % Plt Count 120 L (140-440) K/mm3
[2022-07-24] MEDS ORDERED: WARFARIN 10 MG TAB PO NR (17:00)
[2022-07-24] MEDS ORDERED: WARFARIN 2.5 MG TAB PO NR (17:00)
[2022-07-24] MEDS: traZODone 100 MG TAB PO SCH (21:14)
[2022-07-25] MEDS: MORPHINE 4 MG/1 ML INJ IV PRN ×4 (03:59→21:11)
[2022-07-25] MEDS: METOCLOPRAMIDE 10 MG TAB PO SCH ×5 (07:50→21:10)
[2022-07-25] MEDS: POVIDONE-IODINE OINTMENT 28.35 GM TP SCH ×2 (11:14→22:01)
[2022-07-25] MEDS: levETIRAcetam 500 MG TAB PO SCH ×2 (11:57→22:02)
[2022-07-25] MEDS: lamoTRIgine 100 MG TAB PO SCH ×2 (11:57→21:09)
[2022-07-25] MEDS: SERTRALINE 100 MG TAB PO SCH (11:57)
[2022-07-25] MEDS: ASPIRIN EC 81 MG TAB PO SCH (11:58)
[2022-07-25] MEDS: DOXYCYCLINE 100 MG CAP PO SCH ×2 (11:58→21:10)
[2022-07-25] MEDS: ENOXAPARIN 100 MG/1 ML INJ SUB-Q SCH ×2 (11:59→21:10)
[2022-07-25] MEDS: carvediloL 12.5 MG TAB PO SCH (11:59)
--- NOTE | 2022-07-25 12:07 | Progress Note ---
Assessment and Plan Assessment and plan: 87-year-old male with known history of hypertension, ascending aortic aneurysm, mechanical valve replacement, defibrillator, coronary artery disease with cardiac stent placement in the past, DVTPE with IVC filter placement presenting to the emergency room today for chest pain. Chest x-ray showed no acute findings. Chest CTA showed mild cardiomegaly with mild interstitial edema. No evidence of aneurysm/dissection involving the aortic arch or descending thoracic aorta. The patient was admitted with diagnoses below: #Pacemaker pocket infection (present on admission)improving #Hypertension #Dual-chamber pacemaker inserted 2 weeks ago in [place] ([employer] per patient) #Coronary artery disease status post coronary artery bypass grafting in 2013. Cath reportedly performed 1 year ago in [place] revealing occlusion of the bypass graft. 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 Cardiology following. Continue Lovenox 80 mg twice daily. Hold warfarin in case of invasive cardiac evaluation per cardiology. Obtain all records from [place]. Device interrogation is pending. Obtain blood cultures (device site is erythematous with clear drainage, surgical pablo were removed this morning). Negative troponin x2. No ischemic EKG changes 07/17/2022. Continue Lovenox 80 mg twice daily. Obtain all records from [place]. Device interrogation is pending. Obtain blood cultures (device site is erythematous with clear drainage, surgical pablo were removed yesterday morning). We will start empiric antibiotics of vancomycin for chest wall cellulitis. Consider ID consultation. Negative troponin x2. No ischemic EKG changes 07/18/2022. Replete potassium. Cardiology considering invasive ischemic evaluation. Continue Lovenox 80 mg twice daily. Subtherapeutic INR for mechanical valve. Obtain all records from [place]. Device interrogation is pending. Obtain blood cultures (device site is erythematous with clear drainage, surgical pablo were removed yesterday morning). Continue vancomycin for chest wall cellulitis. Consider ID consultation. Negative troponin x2. No ischemic EKG changes 07/19/2022. Infectious disease consulted for further recommendations regarding possible pacemaker pocket infection (pacemaker placed approximately 2 weeks ago and [place]). Continue vancomycin. Blood cultures unremarkable x2; however, patient and nursing endorse purulent discharge from pacemaker pocket. Continue heparin drip while determining if pacemaker will need to be removed. Patient will be discharged home on warfarin when medically cleared. 07/20/2022. Cardiology starting warfarin 10 mg daily. Continue heparin for bridging. Continue vancomycin; blood cultures unremarkable x72 hours. Pending final oral antibiotics by Infectious Disease. 07/21/2022. Continue warfarin 10 mg daily. Pending INR (goal 2.53.5). Continue vancomycin administration. Pending final oral antibiotic decision by infectious disease. If IV antibiotics are required, this will be set up with case management as soon as possible. 07/22/2022. Continue warfarin 10 mg daily. Current INR 0.97 (goal 2.53.5). Vancomycin discontinued. Starting doxycycline 100 mg twice daily x14 days (completes on August 05). Patient will be medically clear for discharge once INR goal is reached. 07/23/2022. Continue warfarin 10 mg daily. Current INR 1.21 (goal 2.53.5). Continue doxycycline 100 mg twice daily x14 days. Patient will be medically clear for discharge once INR goal is reached. 07/24/2022. Continue warfarin 10 mg daily (current INR 1.35 goal 2.53.5). Patient received warfarin 12.5 mg x 1 yesterday. Continue doxycycline 100 mg twice daily x14 days (completes 08/05/2022). Patient will be medically clear for discharge once INR goal is reached. 07/25/2022. Continue warfarin 12.5mg daily (pending current INR- goal 2.5-3.5). Continue doxycycline 100 mg twice daily x14 days (completes 08/05/2022). Patient will be medically clear for discharge once INR>2. Disposition Plan: Continue medical management Total Time Spent with Patient (Minutes): 45 minutes History Interval history: No acute events overnight. Hospitalist Physical - Constitutional Vitals: Temp Pulse Resp BP Pulse Ox 98.6 F 92 H 16 129/57 100 07/25/22 07:36 07/25/22 07:36 07/25/22 07:36 07/25/22 07:36 07/25/22 07:36 General appearance: Present: no acute distress, well-nourished, other (Pacemaker in upper left chest with minimal purulent discharge oozing from pacemaker p ocket) - EENT Eyes: Present: PERRL, EOM intact ENT: hearing intact, clear oral mucosa, dentition normal - Neck Neck: Present: supple, normal ROM - Respiratory Respiratory effort: normal - Cardiovascular Rhythm: regular Heart Sounds: Present: S1 & S2 - Extremities Extremities: no ischemia, pulses intact, pulses symmetrical, No edema, normal temperature, normal color Peripheral Pulses: within normal limits - Abdominal General gastrointestinal: soft, non-tender, non-distended, normal bowel sounds - Integumentary Integumentary: Present: clear, warm, dry - Psychiatric Psychiatric: appropriate mood/affect, intact judgment & insight, memory intact, cooperative - Neurologic Neurologic: CNII-XII intact, moves all extremities - Allied Health Allied health notes reviewed: nursing, case management HEART Score - HEART Score EKG: Non-specific Age: 45-65 Risk factors: > 3 risk factors or hx of atherosclerotic disease Troponin: Troponin T < 0.010 ng/mL (0.00-0.029) 07/16/22 10:09 Troponin: < normal limit Results - Labs CBC & Chem 7: 07/24/22 06:00 07/22/22 Unknown Labs: Laboratory Last Values WBC 3.0 K/mm3 (4.5-11.0) L 07/20/22 04:00 RBC 2.97 M/mm3 (3.65-5.03) L 07/20/22 04:00 Hgb 7.7 gm/dl (11.8-15.2) L 07/24/22 06:00 Hct 23.8 % (35.5-45.6) L 07/24/22 06:00 MCV 83 fl (84-94) L 07/20/22 04:00 MCH 27 pg (28-32) L 07/20/22 04:00 MCHC 32 % (32-34) 07/20/22 04:00 RDW 23.8 % (13.2-15.2) H 07/20/22 04:00 Plt Count 120 K/mm3 (140-440) L 07/24/22 06:00 Lymph % (Auto) 11.5 % (13.4-35.0) L 07/20/22 04:00 [place] % (Auto) 11.0 % (0.0-7.3) H 07/20/22 04:00 Eos % (Auto) 0.9 % (0.0-4.3) 07/20/22 04:00 Baso % (Auto) 0.5 % (0.0-1.8) 07/20/22 04:00 Lymph # (Auto) 0.3 K/mm3 (1.2-5.4) L 07/20/22 04:00 [place] # (Auto) 0.3 K/mm3 (0.0-0.8) 07/20/22 04:00 Eos # (Auto) 0.0 K/mm3 (0.0-0.4) 07/20/22 04:00 Baso # (Auto) 0.0 K/mm3 (0.0-0.1) 07/20/22 04:00 Add Manual Diff Complete 07/19/22 04:00 Total Counted 100 07/19/22 04:00 Seg Neutrophils % 76.1 % (40.0-70.0) H 07/20/22 04:00 Seg Neuts % (Manual) 79.0 % (40.0-70.0) H 07/19/22 04:00 Band Neutrophils % 3.0 % 07/19/22 04:00 Lymphocytes % (Manual) 11.0 % (13.4-35.0) L 07/19/22 04:00 Reactive Lymphs % (Man) 0 % 07/19/22 04:00 Monocytes % (Manual) 5.0 % (0.0-7.3) 07/19/22 04:00 Eosinophils % (Manual) 2.0 % (0.0-4.3) 07/19/22 04:00 Basophils % (Manual) 0 % (0.0-1.8) 07/19/22 04:00 Metamyelocytes % 0 % 07/19/22 04:00 Myelocytes % 0 % 07/19/22 04:00 Promyelocytes % 0 % 07/19/22 04:00 Blast Cells % 0 % 07/19/22 04:00 Nucleated RBC % Not Reportable 07/19/22 04:00 Seg Neutrophils # 2.3 K/mm3 (1.8-7.7) 07/20/22 04:00 Seg Neutrophils # Man 3.5 K/mm3 (1.8-7.7) 07/19/22 04:00 Band Neutrophils # 0.1 K/mm3 07/19/22 04:00 Lymphocytes # (Manual) 0.5 K/mm3 (1.2-5.4) L 07/19/22 04:00 Abs React Lymphs (Man) 0.0 K/mm3 07/19/22 04:00 Monocytes # (Manual) 0.2 K/mm3 (0.0-0.8) 07/19/22 04:00 Eosinophils # (Manual) 0.1 K/mm3 (0.0-0.4) 07/19/22 04:00 Basophils # (Manual) 0.0 K/mm3 (0.0-0.1) 07/19/22 04:00 Metamyelocytes # 0.0 K/mm3 07/19/22 04:00 Myelocytes # 0.0 K/mm3 07/19/22 04:00 Promyelocytes # 0.0 K/mm3 07/19/22 04:00 Blast Cells # 0.0 K/mm3 07/19/22 04:00 WBC Morphology Not Reportable 07/19/22 04:00 Hypersegmented Neuts Not Reportable 07/19/22 04:00 Hyposegmented Neuts Not Reportable 07/19/22 04:00 Hypogranular Neuts Not Reportable 07/19/22 04:00 Smudge Cells Not Reportable 07/19/22 04:00 Toxic Granulation Not Reportable 07/19/22 04:00 Toxic Vacuolation Not Reportable 07/19/22 04:00 Dohle Bodies Not Reportable 07/19/22 04:00 Pelger-Huet Anomaly Not Reportable 07/19/22 04:00 Bubba Rods Not Reportable 07/19/22 04:00 Platelet Estimate Consistent w auto 07/19/22 04:00 Clumped Platelets Not Reportable 07/19/22 04:00 Plt Clumps, EDTA Not Reportable 07/19/22 04:00 Large Platelets Not Reportable 07/19/22 04:00 Giant Platelets Not Reportable 07/19/22 04:00 Platelet Satelliting Not Reportable 07/19/22 04:00 Plt Morphology Comment Not Reportable 07/19/22 04:00 RBC Morphology Not Reportable 07/19/22 04:00 Dimorphic RBCs Not Reportable 07/19/22 04:00 Polychromasia Not Reportable 07/19/22 04:00 Hypochromasia Not Reportable 07/19/22 04:00 Poikilocytosis 1+ 07/19/22 04:00 Anisocytosis 2+ 07/19/22 04:00 Microcytosis Not Reportable 07/19/22 04:00 Macrocytosis Not Reportable 07/19/22 04:00 Spherocytes Not Reportable 07/19/22 04:00 Pappenheimer Bodies Not Reportable 07/19/22 04:00 Sickle Cells Not Reportable 07/19/22 04:00 Target Cells Not Reportable 07/19/22 04:00 Tear Drop Cells Few 07/19/22 04:00 Ovalocytes Few 07/19/22 04:00 Helmet Cells Not Reportable 07/19/22 04:00 [place] Bodies Not Reportable 07/19/22 04:00 [place] Rings Not Reportable 07/19/22 04:00 [place] Cells Not Reportable 07/19/22 04:00 Bite Cells Not Reportable 07/19/22 04:00 Crenated Cell Not Reportable 07/19/22 04:00 Elliptocytes Few 07/19/22 04:00 Acanthocytes (Spur) Not Reportable 07/19/22 04:00 Rouleaux Not Reportable 07/19/22 04:00 Hemoglobin C Crystals Not Reportable 07/19/22 04:00 Schistocytes Not Reportable 07/19/22 04:00 Malaria parasites Not Reportable 07/19/22 04:00 Indra Bodies Not Reportable 07/19/22 04:00 Hem Pathologist Commnt No 07/19/22 04:00 PT 18.3 Sec. (12.2-14.9) H 07/24/22 06:00 INR 1.35 (0.87-1.13) H 07/24/22 06:00 APTT 33.2 Sec. (24.2-36.6) 07/18/22 Unknown Heparin Anti-Xa Level 0.20 U.I./ml (0.3-0.7) L 07/19/22 05:00 Sodium 138 mmol/L (137-145) 07/22/22 Unknown Potassium 3.7 mmol/L (3.6-5.0) 07/22/22 Unknown Chloride 106.6 mmol/L (98-107) 07/22/22 Unknown Carbon Dioxide 24 mmol/L (22-30) 07/22/22 Unknown Anion Gap 11 mmol/L 07/22/22 Unknown BUN 7 mg/dL (9-20) L 07/22/22 Unknown Creatinine 0.7 mg/dL (0.8-1.3) L 07/22/22 Unknown Estimated GFR > 60 ml/min 07/22/22 Unknown BUN/Creatinine Ratio 10 % 07/22/22 Unknown Glucose 130 mg/dL (75-100) H 07/22/22 Unknown Calcium 8.0 mg/dL (8.4-10.2) L 07/22/22 Unknown Iron 33 ug/dL (49-181) L 07/19/22 07:50 TIBC 205 mcg/dL (250-450) L 07/19/22 07:50 Total Bilirubin 0.30 mg/dL (0.1-1.2) 07/15/22 15:49 AST 9 units/L (5-40) 07/15/22 15:49 ALT 14 units/L (7-56) 07/15/22 15:49 Alkaline Phosphatase 83 units/L (35-129) 07/15/22 15:49 Troponin T < 0.010 ng/mL (0.00-0.029) 07/16/22 10:09 Total Protein 5.7 g/dL (6.3-8.2) L 07/15/22 15:49 Albumin 3.9 g/dL (3.9-5) 07/15/22 15:49 Albumin/Globulin Ratio 2.2 % 07/15/22 15:49 Vancomycin Trough 5.2 ug/mL (5.0-20.0) 07/21/22 10:00 Steward/IV: Voiding Method Toilet Active Medications - Current Medications Current Medications: Generic Name Dose Route Start Last Admin Trade Name Freq PRN Reason Stop Dose Admin Acetaminophen 650 mg 07/15/22 22:49 Acetaminophen 325 Mg Tab PO Q4H PRN Pain MILD(1-3)/Fever >100.5/GRIER Hydrocodone Bitart/Acetaminophen 1 each 07/24/22 10:30 07/24/22 12:11 Hydrocodone/Acetaminophen 5-325 Mg Tab PO 1 each Q6H PRN Administration Pain, Moderate (4-6) Aspirin 81 mg 07/24/22 10:30 Aspirin Ec 81 Mg Tab PO QDAY [facility] Atorvastatin Calcium 80 mg 07/16/22 10:00 07/24/22 09:14 Atorvastatin 40 Mg Tab PO 80 mg DAILY [facility] Administration Carvedilol 12.5 mg 07/16/22 08:00 07/24/22 09:14 Carvedilol 12.5 Mg Tab PO 12.5 mg DAILY@0800 [facility] Administration Doxycycline Hyclate 100 mg 07/22/22 22:00 07/24/22 21:13 Doxycycline 100 Mg Cap PO 08/05/22 10:01 100 mg BID [facility] Administration Protocol Enoxaparin Sodium 90 mg 07/21/22 12:00 07/24/22 21:16 Enoxaparin 100 Mg/1 Ml Inj SUB-Q 90 mg Q12HR [facility] Administration Protocol Lamotrigine 100 mg 07/16/22 10:00 07/24/22 21:15 Lamotrigine 100 Mg Tab PO 100 mg BID [facility] Administration Levetiracetam 1,000 mg 07/16/22 10:00 07/24/22 21:15 Levetiracetam 500 Mg Tab PO 1,000 mg BID [facility] Administration Lorazepam 0.5 mg 07/16/22 12:00 07/16/22 12:09 Lorazepam 0.5 Mg Tab PO 0.5 mg Q12H PRN Administration Agitation Magnesium Hydroxide 30 ml 07/15/22 22:49 Magnesium Hydroxide (Mom) Oral Liqd Udc PO Q4H PRN Constipation Metoclopramide HCl 5 mg 07/22/22 11:30 07/25/22 11:57 Metoclopramide 10 Mg Tab PO Not Given ACHS [facility] Morphine Sulfate 2 mg 07/24/22 10:31 07/25/22 03:59 Morphine 4 Mg/1 Ml Inj IV 2 mg Q6H PRN Administration Pain , Severe (7-10) Nitroglycerin 0.4 mg 07/15/22 22:49 Nitroglycerin 0.4 Mg Tab Subl SL Q5M PRN Chest Pain Ondansetron HCl 4 mg 07/15/22 22:49 Ondansetron 4 Mg/2 Ml Inj IV Q8H PRN Nausea And Vomiting Povidone Iodine 1 applic 07/18/22 22:00 07/24/22 22:35 Povidone-Iodine Ointment 28.35 Gm TP 1 applic BID [facility] Administration Sertraline HCl 100 mg 07/16/22 10:00 07/24/22 09:13 Sertraline 100 Mg Tab PO 100 mg QDAY [facility] Administration Sodium Chloride 10 ml 07/16/22 10:00 07/24/22 21:16 Sodium Chloride 0.9% 10 Ml Flush Syringe IV 10 ml BID [facility] Administration Sodium Chloride 10 ml 07/15/22 22:49 07/24/22 15:00 Sodium Chloride 0.9% 10 Ml Flush Syringe IV 10 ml PRN PRN Administration LINE FLUSH Tramadol HCl 50 mg 07/15/22 22:49 Tramadol 50 Mg Tab PO Q6H PRN Pain, Moderate (4-6) Trazodone HCl 100 mg 07/16/22 22:00 07/24/22 21:14 Trazodone 100 Mg Tab PO 100 mg QHS [facility] Administration Warfarin Sodium 10 mg 07/24/22 17:00 07/24/22 21:48 Warfarin 10 Mg Tab PO 07/25/22 16:59 10 mg DAILY@1700 NR Administration Warfarin Sodium 2.5 mg 07/24/22 17:00 07/24/22 21:49 Warfarin 2.5 Mg Tab PO 07/25/22 16:59 2.5 mg DAILY@1700 NR Administration Nutrition/Malnutrition Assess - Dietary Evaluation Nutrition/Malnutrition Findings: Nutrition Notes Start: 07/21/22 16: 39 Freq: Status: Active Protocol: Document 07/21/22 16:39 ADEOLA (Rec: 07/21/22 17:06 ADEOLA [id number]) Nutrition Notes Need for Assessment generated from: Education Initial or Follow up Assessment Current Diagnosis Coronary Artery Disease, Hypertension Other Pertinent Diagnosis Pacemaker Pocket Infection, Anemia, DVT/PE, Romeo Pain/N/V/ SOB, ... Current Diet Cardiac Diet (since L 07/18). Labs/Tests 07/21: Crea 0.7, Glu 216, Ca 7 .6. Pertinent Medications 07/21: Coumadin 10mg, others nutritionally unremarkable. 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 Weight Status Overweight Subjective/Other Information RD consult for warfarine use assessment. No reports available on Pt's PO intake of meals at the time , will assess at F/U. Pt is on Room Air, O2 saturation @ 94%, according to Physical Assessment History notes. Pt is a long-term user of coumadin, not a candidate for nutrition education. Percent of energy/protein needs met: Prescribed Cardiac Diet provides for energy/protein needs (2,230 Kcal/85 g) during LOS. Burn Absent Trauma Absent GI Symptoms None Food Allergy Yes Skin Integrity/Comment Assessment WNL. Minimum of two criteria No Fluid Accumulation N/A Reduced Emt Basic Strength N/A (non-severe) Protein-Calorie Malnutrition N\A #1 Nutrition Diagnosis No nutrition diagnosis at this time Is patient on ventilator? No Is Patient Ambulatory and/or Out of Bed Yes REE-([facility]-ambulatory/OOB) [ 2149.719 [id number]] Kcal/Kg value to use for calculation 20 Approximate Energy Requirements Using 1730 kcal/Kg Calculation Used for Recommendations Kcal/kg Additional Notes Protein: 0.8-1 g/Kg ABW; 70-87 g/day. Fluids: 1 ml/Kcal, or as per MD. Nutrition Intervention Change Diet Order: Continue Cardiac Diet as tolerated. Follow-Up By: 07/28/22 Additional Comments Continue monitoring food tolerance, %PO intake of meals , and BM.
[2022-07-25 12:48] LABS: INR 1.61 (0.87-1.13)
--- NOTE | 2022-07-25 14:24 | Progress Note ---
Assessment and Plan (1) History of mechanical aortic valve replacement Current Visit: Yes Status: Acute Plan to address problem: The patient presented with subtherapeutic INR of 0.9, despite professed compliance with warfarin at 10 mg daily. Restarted warfarin 10 mg daily, goal of INR is 2.5-3.5. Patient advised to maintain bridge Lovenox therapy until therapeutic. (2) Infection of pacemaker pulse generator site Current Visit: Yes Status: Acute Plan to address problem: At this time, he will be recommended for continued antibiotic therapy per ID recommendations, and continued wound care. Ultimate plan is for outpatient management with subcutaneous Lovenox as a bridge to therapeutic warfarin levels. (3) Chest pain Current Visit: Yes Status: Acute Plan to address problem: Patient's chest pain is atypical, ECGs and troponin levels are unremarkable. Continue guideline directed medical therapy for coronary artery disease and chronic stable angina. Subjective Principal diagnosis: Chest pain Interval history: Patient doing well he denies any chest pain shortness of breath orthopnea. Objective Vital Signs Temp Pulse Resp Resp BP Pulse Ox 07/25/22 07:36 98.6 F 92 H 16 129/57 100 07/25/22 03:39 97.4 F L 81 18 108/49 100 07/24/22 22:00 104 H 20 98 - Physical Examination General: No Apparent Distress HEENT: Positive: PERRL Neck: Positive: neck supple Cardiac: Positive: Reg Rate and Rhythm, S1/S2 Neuro: Positive: Grossly Intact Abdomen: Positive: Soft Skin: Positive: Clear Extremities: Absent: edema - Labs and Meds Coagulation 07/25/22 Range/Units 12:15 PT 21.1 H (12.2-14.9) Sec. INR 1.61 H (0.87-1.13) - Telemetry EKG Rhythm: Sinus Rhythm
[2022-07-25] MEDS ORDERED: WARFARIN 2.5 MG TAB PO NR (17:00)
[2022-07-25] MEDS ORDERED: WARFARIN 10 MG TAB PO NR (17:00)
[2022-07-26] MEDS: MORPHINE 4 MG/1 ML INJ IV PRN (08:01)
[2022-07-26 08:57] LABS: Hematocrit 23.2 % (35.5-45.6); Hemoglobin 7.5 gm/dl (11.8-15.2)
[2022-07-26 09:06] LABS: INR 2.08 (0.87-1.13)
[2022-07-26] MEDS: levETIRAcetam 500 MG TAB PO SCH (11:00)
[2022-07-26] MEDS: SERTRALINE 100 MG TAB PO SCH (11:00)
[2022-07-26] MEDS: ENOXAPARIN 100 MG/1 ML INJ SUB-Q SCH (11:00)
[2022-07-26] MEDS: lamoTRIgine 100 MG TAB PO SCH (11:00)
[2022-07-26] MEDS: POVIDONE-IODINE OINTMENT 28.35 GM TP SCH (11:00)
[2022-07-26] MEDS: carvediloL 12.5 MG TAB PO SCH (11:00)
[2022-07-26] MEDS: METOCLOPRAMIDE 10 MG TAB PO SCH (11:00)
--- NOTE | 2022-07-26 11:13 | Discharge Summary ---
Providers - Providers Date of Admission: 07/15/22 22:49 Date of discharge: 07/26/22 Attending physician: GILDARDO MARIA MD 07/15/22 Consult to Cardiac Rehabilitation [CONS] Routine Reason For Exam: Phase I 07/15/22 20:01 Consult to Physician [CONS] Urgent Comment: Consulting Provider: KELLY HENNESSY Physician Instructions: Reason For Exam: cp, cad 07/19/22 07:49 Consult to Physician [CONS] Urgent Comment: Consulting Provider: LONG LING Physician Instructions: Reason For Exam: Possible pacemaker pocket infection Primary care physician: MARINE UNDERWRITER Hospitalization Reason for admission: ACS rule out Condition: Stable Hospital course: Patient is a 57-year-old male with history of hypertension, ascending aortic aneurysm, mechanical valve replacement and coronary disease who presented with chest pain. He was admitted for ACS rule out. He had sustained PICC line placed at the [facility] due to poor IV access. He was also found to have subtherapeutic INR. CT angiogram of the chest showed mild cardiomegaly with mild residual edema without evidence of aneurysm or dissection involving the aortic arch or descending thoracic aorta. Cardiology was consulted. Echocardiogram showed left ventricular ejection fraction of 50 to 55%, prosthetic aortic valve and pacemaker. Patient was restarted on warfarin with Lovenox bridge. He was noted to have cellulitis at the site of his incision. He was started on IV vancomycin. Once clinically stable with an INR of 2, patient was discharged home with doxycycline and instructions warfarin monitoring. Disposition: 01 HOME / SELF CARE / HOMELESS Final Discharge Diagnosis (Prints w/discharge instructions): ACS ruled out. Pacemaker pocket infection present on admission-improved. Hypertension. Chamber pacemaker. Coronary artery disease status post CABG. History of ascending aortic aneurysm. Mechanical aortic valve replacement. History of DVT/PE status post IVC filter. Chronic iron deficiency anemia. Hypokalemia. Subtherapeutic INR Time spent for discharge: 40 minutes Core Measure Documentation - Palliative Care Palliative Care/ Comfort Measures: Not Applicable - Core Measures Any of the following diagnoses?: history only Exam - Physical Exam Narrative exam: GENERAL: Well-developed well-nourished. In no acute distress. HEENT: Normocephalic. Atraumatic. NECK: Supple. CHEST/LUNGS: CTAB on room air HEART/CARDIOVASCULAR: RRR. No murmur, rubs or gallops appreciated. ABDOMEN: +BS. NT/ND. SKIN: No rashes noted. NEURO: No focal motor deficit. Follows all commands and is ambulatory. MUSCULOSKELETAL: No joint effusion EXTREMITIES: No cyanosis, clubbing or edema. LUE PICC line intact. PSYCH: Cooperative. - Constitutional Vitals: Temp Pulse Resp BP Pulse Ox 98.5 F 92 H 18 100/41 98 07/25/22 19:13 07/25/22 22:00 07/25/22 22:00 07/25/22 19:13 07/25/22 22:00 Plan Care Plan Goals: Please follow up with your primary care provider. Please check your INR within 1 week. The goal is between 2.5-3.5. Continue to use lovenox until you reach this goal. Take 12.5mg of warfarin every other day. Take 10mg on the alternate days. Please make a follow up appointment with your loan officer in the next 2 weeks. Please take your antibiotics as they are prescribed. Follow up with: YASEMIN FAITH MD [Staff Physician] - 14 Days PRIMARY CARE, [Primary Care Provider] - 7 Days Forms: Warfarin Discharge Instruction Prescriptions: Warfarin [Coumadin] 10 mg PO DAILY@1700 30 Days #30 tablet Warfarin [Coumadin] 2.5 mg PO QDAY 30 Days #30 tablet Aspirin EC [Halfprin EC] 81 mg PO QDAY 30 Days #30 tablet DOXYCYCLINE Hyclate [Vibramycin CAP] 100 mg PO BID 14 Days #28 tab
--- NOTE | 2022-07-26 12:28 | Progress Note ---
Assessment and Plan - Patient Problems (1) History of mechanical aortic valve replacement Current Visit: Yes Status: Acute Plan to address problem: INR is therapeutic, over 2.0, patient may be discharged on warfarin 10 mg alternating with 12.5 mg every other day. Lovenox will be discontinued. He is recommended to recheck his INR in 5 to 7 days, and follow-up with his primary outpatient pmp certified project manager. (2) Infection of pacemaker pulse generator site Current Visit: Yes Status: Acute Plan to address problem: Superficial infection of the pacemaker insertion site, treated optimally with antibiotics under infectious disease guidance. (3) Chest pain Current Visit: Yes Status: Acute Plan to address problem: Patient is comfortable, stable, asymptomatic coronary artery disease, continue guideline directed medical management. Subjective Date of service: 07/26/22 Principal diagnosis: Chest pain Interval history: Patient is comfortable, no acute distress, his INR is greater than 2.0. He looks and feels well, and discharge is planned for today. Objective Vital Signs Temp Pulse Resp Resp BP BP Pulse Ox 07/25/22 22:00 92 H 18 98 07/25/22 19:13 98.5 F 97 H 20 100/41 94 07/25/22 16:34 98.0 F 86 16 110/57 98 - Physical Examination General: No Apparent Distress HEENT: Positive: PERRL Neck: Positive: neck supple Cardiac: Positive: Reg Rate and Rhythm, Systolic Murmur Lungs: Positive: Decreased Breath Sounds Neuro: Positive: Grossly Intact Abdomen: Positive: Soft Skin: Positive: Clear Extremities: Absent: edema - Labs and Meds Coagulation 07/25/22 07/26/22 Range/Units 12:15 08:33 PT 21.1 H 26.1 H (12.2-14.9) Sec. INR 1.61 H 2.08 H (0.87-1.13) CBC 07/26/22 Range/Units 08:33 Hgb 7.5 L (11.8-15.2) gm/dl Hct 23.2 L (35.5-45.6) % Plt Count 156 (140-440) K/mm3
[2022-07-26 12:53] VITALS: BP 110/58
[2022-07-26] MEDS: ASPIRIN EC 81 MG TAB PO SCH (15:36)
[2022-07-26] MEDS: DOXYCYCLINE 100 MG CAP PO SCH (15:42)
== END 2022-07-26 11:20 | disposition home or self-care (01) | DRG 863 ==
LOC: ED 13:48 → 4A 22:49
PROVIDERS: ADMIT Internal Medicine Geriatric Medicine; ATTEND Student in an Organized Health Care Education/Training Program
DX: T81.41XA Infection following a procedure, superficial incisional surgical site, initial encounter (principal); L03.313 Cellulitis of chest wall; I25.10 Atherosclerotic heart disease of native coronary artery without angina pectoris; I10 Essential (primary) hypertension; D50.9 Iron deficiency anemia, unspecified; Y92.89 Other specified places as the place of occurrence of the external cause; Y83.8 Other surgical procedures as the cause of abnormal reaction of the patient, or of later complication, without mention of misadventure at the time of the procedure; Z95.0 Presence of cardiac pacemaker; E87.6 Hypokalemia; Z88.8 Allergy status to other drugs, medicaments and biological substances; Z91.041 Radiographic dye allergy status; Z91.013 Allergy to seafood; Z86.711 Personal history of pulmonary embolism; Z79.01 Long term (current) use of anticoagulants
CPT/HCPCS: 36415; 71045; 71275; 80048; 80053; 80202; 83550; 84484; 85007; 85014; 85018; 85025; 85049; 85520; 85610; 85730; 87040; 93005; 93306; 99285; G0378; J3490; C8929; J1170; J1200; J1642; J1644; J1650; J2270; J2405; J2930; J2997; J3370; J7040; Q9967